=== PATIENT | female | born 1930 | race Caucasian/White ===

== ENCOUNTER 2017-07-08 08:37 | Inpatient (IN) | payer MEDICARE, BC, MEDICAID ==
[~2017-07-08] VITALS: Ht 167.6 cm; Wt 89.4 kg
[~2017-07-08 08:37] MED LIST: BACTRIM SINGLE S1 EA ORAL; BENAZEPRIL HCL10 MG ORAL; BENEFIBER1 EACH ORAL; BISACODYL10 M1 RC; CENTRUM SILVER1 EAC4 PO; CLONIDINE0.1 MG ORAL; DETROL LA4 MG ORAL; DONEPEZIL HCL10 M2 ORAL; DONEPEZIL HCL10 MG ORAL; LIPITOR80 MG ORAL; LOPERAMIDE2 MG PO; METFORMIN HCL500 M1 ORAL; MILK OF MA400 MG/51 ORAL; MULTIVITAMINS1 EAC8 ORAL; NAPROXEN SODIU220 M2 PO; PLAVIX75 MG ORAL; ROBAFEN100 MG/5 M PO; SM ENEMA READY RC; TOLTERODINE TART4 MG PO; TYLENOL650 MG/20. ORAL
[2017-07-08 08:41] VITALS: BP 139/55
--- NOTE | 2017-07-08 09:04 | Emergency Room Report ---
History of Present Illness General Chief Complaint: Fever Source: Patient, Medical Record, EMS Present Illness HPI 86-year-old female, coming from care home, history of diabetes, hypertension , dementia, presenting with fever for one day. Per EMS she has had cough and congestion. She took a Tylenol is given by nursing staff earlier this morning. Currently patient with dementia, answering only simple questions, very poor historian. She is currently denying any shortness of breath, chest pain, abdominal pain, nausea vomiting Allergies: Coded Allergies: PENICILLINS (Verified Allergy, Severe, Rash, 01/31/16) Swelling Redness Rash Patient History Past Medical History: see triage record Past Surgical History: none Pertinent Family History: none Reviewed Nursing Documentation: PMH: Agreed, PSxH: Agreed Nursing Documentation-PMH Past Medical History: No History, Except For Hx COPD: No - Pneumonia Hx Diabetes: Yes Hx Cancer: No Hx Dialysis: No - UTI Hx Neurological Problems: No - Hearing Loss Hx Dementia: Yes Hx Alzheimer's Disease: Yes Review of Systems All Other Systems: negative except mentioned in HPI Physical Exam Vital Signs Date Time Temp Pulse Resp B/P (MAP) Pulse Ox O2 Delivery O2 Flow Rate FiO2 07/08/17 08:31 98.4 86 16 123/83 96 Room Air 98.4 Sp02 EP Interpretation: reviewed, normal General Appearance: alert, mild distress, other - dementia Head: normocephalic, atraumatic Eyes: bilateral eye normal inspection, bilateral eye PERRL, bilateral eye EOMI ENT: normal ENT inspection, normal pharynx, normal voice, moist mucus membranes Neck: normal inspection, full range of motion, supple Respiratory: normal inspection, lungs clear, normal breath sounds, no respiratory distress, no retraction, no wheezing, speaking full sentences, chest symmetrical Cardiovascular #1: normal inspection, regular rate, rhythm, normal capillary refill Cardiovascular #2: 2+ radial (R), 2+ radial (L) Gastrointestinal: normal inspection, non tender, soft, non-distended, no guarding Musculoskeletal: normal inspection, back normal, normal range of motion, non- tender Neurologic: other - aox2, moves ext spont Psychiatric: normal inspection, judgement/insight normal, memory normal Skin: normal inspection, normal color, no rash, warm/dry, well hydrated, normal turgor Medical Decision Making Diagnostic Impression: Primary Impression: Alzheimer's dementia Additional Impressions: Fever Influenza B UTI (urinary tract infection) ER Course 86-year-old female, cough congestion fever DDX: Fever : UTI, viral URI/influenza, PNA, bacteremia, will also consider intra- abdominal pathology such as colitis / diverticulitis / acalculous cholecystitis if no other course found but at this time abdomen soft, NT, ND. Plan: Obtain labs including cbc, bmp, blood culture, blood gas, lactate, ua, ucx CXR EKG ER course: Patient was given ceftriaxone for UTI. It was attempted to give patient Tamiflu , however she keeps spitting it out. Given gentle fluids Disposition: Patient will admitted to telemetry D/W Hospitalist Dr Gutierrez Please note that this Emergency Department Report was dictated using [employer] conveyor operator technology software, occasionally this can lead to erroneous entry secondary to interpretation by the dictation equipment. EKG Diagnostic Results EP Interpretation: Yes Rate: normal Rhythm: NSR ST Segments: No acute changes ASA given to patient: No Rhythm Strip EP Interpretation: Yes Rate: 90 Rhythm: NSR, no PVCs, no ectopy Chest X-ray CXR: Ordered: Yes 1 view Indication: Cough EP interpretation: Yes Interpretation: No consolidation, no effusion, no PTX, no acute cardiopulmonary disease Impression: No acute disease Electronically signed by Mercedes Portillo MD Laboratory Tests Test 07/08/17 09:00 07/08/17 09:08 White Blood Count 5.4 K/UL (4.8-10.8) Red Blood Count 4.78 M/UL (4.20-5.40) Hemoglobin 15.3 G/DL (12.0-16.0) Hematocrit 45.4 % (37.0-47.0) Mean Corpuscular Volume 95 FL (80-99) Mean Corpuscular Hemoglobin 31.9 PG (27.0-31.0) H Mean Corpuscular Hemoglobin Concent 33.6 G/DL (32.0-36.0) Red Cell Distribution Width 12.8 % (11.6-14.8) Platelet Count 178 K/UL (150-450) Mean Platelet Volume 6.3 FL (6.5-10.1) L Neutrophils (%) (Auto) 62.5 % (45.0-75.0) Lymphocytes (%) (Auto) 28.3 % (20.0-45.0) Monocytes (%) (Auto) 8.3 % (1.0-10.0) Eosinophils (%) (Auto) 0.0 % (0.0-3.0) Basophils (%) (Auto) 0.9 % (0.0-2.0) Sodium Level 142 MMOL/L (136-145) Potassium Level 4.2 MMOL/L (3.5-5.1) Chloride Level 107 MMOL/L (98-107) Carbon Dioxide Level 28 MMOL/L (21-32) Anion Gap 7 mmol/L (5-15) Blood Urea Nitrogen 19 mg/dL (7-18) H Creatinine 1.0 MG/DL (0.55-1.30) Estimate Glomerular Filtration Rate mL/min (>60) Glucose Level 175 MG/DL (74-106) H Lactic Acid Level 1.40 mmol/L (0.66-2.22) Calcium Level 8.7 MG/DL (8.5-10.1) Total Bilirubin 0.4 MG/DL (0.2-1.0) Aspartate Amino Transferase (AST) 51 U/L (15-37) H Alanine Aminotransferase (ALT) 31 U/L (12-78) Alkaline Phosphatase 86 U/L (46-116) Troponin I 0.012 ng/mL (0.000-0.056) Pro-B-Type Natriuretic Peptide 533 pg/mL (0-125) H Total Protein 7.2 G/DL (6.4-8.2) Albumin 2.8 G/DL (3.4-5.0) L Globulin 4.4 g/dL Albumin/Globulin Ratio 0.6 (1.0-2.7) L Urine Color Yellow Urine Appearance Very cloudy Urine pH 6 (4.5-8.0) Urine Specific [place] 1.020 (1.005-1.035) Urine Protein 3+ (NEGATIVE) H Urine Glucose (UA) Negative (NEGATIVE) Urine Ketones 1+ (NEGATIVE) H Urine Occult Blood 2+ (NEGATIVE) H Urine Nitrite Negative (NEGATIVE) Urine Bilirubin Negative (NEGATIVE) Urine Urobilinogen Normal MG/DL (0.0-1.0) Urine Leukocyte Esterase 3+ (NEGATIVE) H Urine RBC 5-10 /HPF (0 - 2) H Urine WBC Tntc /HPF (0 - 2) H Urine Squamous Epithelial Cells Few /LPF (NONE/OCC) Urine Bacteria Moderate /HPF (NONE) H Microbiology Date/Time Source Procedure Growth Status 07/08/17 09:25 Nasal Nares Influenza Types A,B Antigen (OLIVIA) - Final Complete Last Vital Signs Date Time Temp Pulse Resp B/P (MAP) Pulse Ox O2 Delivery O2 Flow Rate FiO2 07/08/17 08:31 98.4 86 16 123/83 96 Room Air 98.4 Disposition: ADMITTED INPATIENT Condition: Serious RetinMercedes rouse M.D. Jul 08, 2017 09:04
[2017-07-08 09:33] LABS: ANION GAP 7 mmol/L (5-15); BLOOD UREA NITROGEN 19 mg/dL (7-18); CALCIUM 8.7 MG/DL (8.5-10.1); CARBON DIOXIDE 28 MMOL/L (21-32); CHLORIDE 107 MMOL/L (98-107); POTASSIUM 4.2 MMOL/L (3.5-5.1); SODIUM 142 MMOL/L (136-145)
[2017-07-08 09:38] LABS: BASOPHILS % (AUTO) 0.9 % (0.0-2.0); HEMATOCRIT 45.4 % (37.0-47.0); HEMOGLOBIN 15.3 G/DL (12.0-16.0); LYMPHOCYTES % (AUTO) 28.3 % (20.0-45.0); MEAN CORPUSCULAR VOLUME 95 FL (80-99); MONOCYTES % (AUTO) 8.3 % (1.0-10.0); NEUTROPHILS % (AUTO) 62.5 % (45.0-75.0); PLATELET COUNT 178 K/UL (150-450); RED BLOOD COUNT 4.78 M/UL (4.20-5.40); RED CELL DISTRIBUTION WIDTH 12.8 % (11.6-14.8); WHITE BLOOD COUNT 5.4 K/UL (4.8-10.8)
[2017-07-08 09:40] LABS: APPEARANCE,URINE VERY CLOUDY; BILIRUBIN, URINE NEGATIVE (NEGATIVE); GLUCOSE, URINE (UA) NEGATIVE (NEGATIVE); KETONES,URINE 1+ (NEGATIVE); LEUKOCYTE ESTERASE ,URINE 3+ (NEGATIVE); NITRITE,URINE NEGATIVE (NEGATIVE); PH,URINE 6 (4.5-8.0); PROTEIN,URINE 3+ (NEGATIVE); UROBILINOGEN,URINE NORMAL MG/DL (0.0-1.0)
[2017-07-08 09:45] LABS: ALANINE AMINOTRANSFERASE 31 U/L (12-78); ALBUMIN 2.8 G/DL (3.4-5.0); ALBUMIN/GLOBULIN RATIO 0.6 (1.0-2.7); ALKALINE PHOSPHATASE 86 U/L (46-116); ASPARTATE AMINO TRANSFERASE 51 U/L (15-37); BILIRUBIN,TOTAL 0.4 MG/DL (0.2-1.0)
[2017-07-08 09:46] LABS: COLOR,URINE YELLOW
[2017-07-08] MEDS ORDERED: PROTONIX20 MG ORAL (10:13)
[2017-07-08] MEDS ORDERED: TYLENOL EXTRA500 MG ORAL (10:13)
[2017-07-08] MEDS ORDERED: DULCOLAX STOOL100 M1 PO (10:13)
[2017-07-08] MEDS ORDERED: MOM30 ML ORAL (10:13)
[2017-07-08] MEDS ORDERED: VITAMIN C500 M3 ORAL (10:13)
[2017-07-08] MEDS ORDERED: FLEET ENEMA133 M1 RC (10:13)
[2017-07-08] MEDS ORDERED: A & D OINT1 APPLI1 (10:13)
[2017-07-08] MEDS ORDERED: CENTRUM ADULTS1 EACH PO (10:13)
[2017-07-08] MEDS ORDERED: cefTRIAXone 1 GM in NS 55 ML IVPB ONE (10:15)
[2017-07-08] MEDS ORDERED: Oseltamivir 75mg cap ORAL ONE (10:15)
[2017-07-08 10:36] VITALS: BP 121/72
--- NOTE | 2017-07-08 11:52 | Diagnostic Imaging Report ---
Indication: Dyspnea Comparison: 03/15/2016 A single view chest radiograph was obtained. Findings: No definite infiltrate or pulmonary vascular congestion identified. The heart is enlarged. The aorta is mildly enlarged consistent with atherosclerotic vascular disease. The bones are osteopenic. Impression: No acute disease
[2017-07-08 12:00] VITALS: BP 150/66
--- NOTE | 2017-07-08 13:26 | Infectious Diseases Prog Note ---
Assessment/Plan Problems: (1) Influenza B Assessment & Plan: will start tamiflu for 5 days, will keep in droplet isolation (2) UTI (urinary tract infection) Assessment & Plan: will send urine culture and start cefepime empirically (3) Fever Assessment & Plan: due to the above, rule out sepsis , will send blood culture , continue Tylenol (4) Diabetes type 2, uncontrolled Assessment & Plan: recommend tight glycemic control to keep blood glucose between 100-140 Subjective Allergies: Coded Allergies: PENICILLINS (Verified Allergy, Severe, Rash, 01/31/16) Swelling Redness Rash Objective Vital Signs Last 24 Hour Vital Signs Date Time Temp Pulse Resp B/P (MAP) Pulse Ox O2 Delivery O2 Flow Rate FiO2 07/08/17 12:00 98.0 80 20 150/68 95 Room Air 97.8 07/08/17 10:36 85 17 121/72 97 Room Air 07/08/17 08:41 97.8 91 23 139/55 95 Room Air 97.8 07/08/17 08:31 98.4 86 16 123/83 96 Room Air 98.4 Height (Feet): 5 Height (Inches): 6.00 Weight (Pounds): 197 Microbiology Date/Time Source Procedure Growth Status 07/08/17 09:25 Nasal Nares Influenza Types A,B Antigen (OLIVIA) - Final Complete Laboratory Tests Test 07/08/17 09:00 07/08/17 09:08 White Blood Count 5.4 K/UL (4.8-10.8) Red Blood Count 4.78 M/UL (4.20-5.40) Hemoglobin 15.3 G/DL (12.0-16.0) Hematocrit 45.4 % (37.0-47.0) Mean Corpuscular Volume 95 FL (80-99) Mean Corpuscular Hemoglobin 31.9 PG (27.0-31.0) H Mean Corpuscular Hemoglobin Concent 33.6 G/DL (32.0-36.0) Red Cell Distribution Width 12.8 % (11.6-14.8) Platelet Count 178 K/UL (150-450) Mean Platelet Volume 6.3 FL (6.5-10.1) L Neutrophils (%) (Auto) 62.5 % (45.0-75.0) Lymphocytes (%) (Auto) 28.3 % (20.0-45.0) Monocytes (%) (Auto) 8.3 % (1.0-10.0) Eosinophils (%) (Auto) 0.0 % (0.0-3.0) Basophils (%) (Auto) 0.9 % (0.0-2.0) Sodium Level 142 MMOL/L (136-145) Potassium Level 4.2 MMOL/L (3.5-5.1) Chloride Level 107 MMOL/L (98-107) Carbon Dioxide Level 28 MMOL/L (21-32) Anion Gap 7 mmol/L (5-15) Blood Urea Nitrogen 19 mg/dL (7-18) H Creatinine 1.0 MG/DL (0.55-1.30) Estimat Glomerular Filtration Rate mL/min (>60) Glucose Level 175 MG/DL (74-106) H Lactic Acid Level 1.40 mmol/L (0.66-2.22) Calcium Level 8.7 MG/DL (8.5-10.1) Total Bilirubin 0.4 MG/DL (0.2-1.0) Aspartate Amino Transf (AST/SGOT) 51 U/L (15-37) H Alanine Aminotransferase (ALT/SGPT) 31 U/L (12-78) Alkaline Phosphatase 86 U/L (46-116) Troponin I 0.012 ng/mL (0.000-0.056) Pro-B-Type Natriuretic Peptide 533 pg/mL (0-125) H Total Protein 7.2 G/DL (6.4-8.2) Albumin 2.8 G/DL (3.4-5.0) L Globulin 4.4 g/dL Albumin/Globulin Ratio 0.6 (1.0-2.7) L Urine Color Yellow Urine Appearance Very cloudy Urine pH 6 (4.5-8.0) Urine Specific [place] 1.020 (1.005-1.035) Urine Protein 3+ (NEGATIVE) H Urine Glucose (UA) Negative (NEGATIVE) Urine Ketones 1+ (NEGATIVE) H Urine Occult Blood 2+ (NEGATIVE) H Urine Nitrite Negative (NEGATIVE) Urine Bilirubin Negative (NEGATIVE) Urine Urobilinogen Normal MG/DL (0.0-1.0) Urine Leukocyte Esterase 3+ (NEGATIVE) H Urine RBC 5-10 /HPF (0 - 2) H Urine WBC Tntc /HPF (0 - 2) H Urine Squamous Epithelial Cells Few /LPF (NONE/OCC) Urine Bacteria Moderate /HPF (NONE) H Current Medications Medications (Trade) Dose Ordered Sig/Олег Route PRN Reason Start Time Stop Time Status Last Admin Dose Admin Sodium Chloride 1,000 ml @ 125 mls/hr Q8H IV 07/08/17 10:15 08/07/17 10:14 07/08/17 10:22 Alicja Webster M.D. Jul 08, 2017 13:26
--- NOTE | 2017-07-08 14:53 | History & Physical ---
History and Physical History & Physicial Fever , cough H Influenza B Encephalopathy UTI DM HTN OBS PCN ALL # [id number] BARRY SMITH Jul 08, 2017 14:53
[2017-07-08] MEDS ORDERED: Acetaminophen 650mg/20.3ml ORAL PRN (15:00)
[2017-07-08] MEDS: D5 1/2NS 1,000 ML IV SCH (15:32)
[2017-07-08 16:15] VITALS: BP 154/72
--- NOTE | 2017-07-08 17:42 | Consultation ---
History of Present Illness General Date patient seen: Jul 08, 2017 Chief Complaint: Fever Reason for Consultation: dyspnea/ aspiration Present Illness HPI 86-year-old female with pmhx of diabetes, hypertension, dementia, very poor historian, from group home,presenting with fever for one day. Per EMS she has had cough and congestion. She is currently denying any shortness of breath, chest pain, abdominal pain, nausea vomiting. she looks comfortable but has episodes of coughing. Allergies: Coded Allergies: PENICILLINS (Verified Allergy, Severe, Rash, 01/31/16) Swelling Redness Rash Medication History Scheduled Acetaminophen* (Tylenol Extra Strength*), 325 MG ORAL Q4HR, (Reported) Ascorbic Acid (Vitamin C), 500 MG ORAL DAILY, (Reported) Atorvastatin (Lipitor), 80 MG ORAL BEDTIME Benazepril Hcl* (Benazepril Hcl*), 10 MG ORAL DAILY, (Reported) Benazepril Hcl* (Benazepril Hcl*), 10 MG ORAL Q12HR Clopidogrel Bisulfate* (Plavix*), 75 MG ORAL DAILY Donepezil Hcl* (Donepezil Hcl*), 10 MG ORAL HS, (Reported) Magnesium Hydroxide (Milk of Magnesia), 30 ML ORAL DAILY, (Reported) Magnesium Hydroxide* (Milk Of Magnesia*), 30 ML ORAL DAILY, (Reported) Metformin Hcl* (Metformin Hcl*), 500 MG ORAL TWICE A DAY, (Reported) Multivitamin With Minerals (Multivitamins With Minerals*), 1 TAB ORAL DAILY, ( Reported) Pantoprazole Sodium (Protonix), 20 MG ORAL DAILY, (Reported) Tolterodine Tartrate (Detrol La), 4 MG ORAL DAILY, (Reported) Trimethoprim/Sulfamethoxazole (Bactrim 400-80 mg Tablet), 1 EA ORAL Q12HR Scheduled PRN Acetaminophen (Acetaminophen), 650 MG ORAL Q6H PRN for Prn Headache/Temp > 101, (Reported) Clonidine HCl (Clonidine HCl), 0.1 MG ORAL Q6H PRN Miscellaneous Medications Bisacodyl (Bisacodyl), 10 MG RC, (Reported) Docusate Sodium (Dulcolax Stool Softener), 10 MG PO, (Reported) Guaifenesin (Robafen), 100 MG PO, (Reported) Guar Gum (Benefiber*), 1 PACKET ORAL, (Reported) Loperamide Hcl (Loperamide), 2 MG PO, (Reported) Mu-Vits-Min Th/Lycopene/Lutein (Centrum Silver Tablet), 1 EACH PO, (Reported) Multivitamin/Iron/Folic Acid (Centrum Adults Tablet), 1 EACH PO, (Reported) Na Phos,M-B/Na Phos,Di-Ba (Sm Enema Ready To Use), 270 ML RC, (Reported) Na Phos,M-B/Na Phos,Di-Ba (Fleet Enema), 118 ML RC, (Reported) Naproxen Sodium (Naproxen Sodium), 220 MG PO, (Reported) Vitamin A & D (Vitamin A & D Ointment), (Reported) Patient History Healthcare decision maker HERNANDO CORDOVA Resuscitation status Do Not Intubate Advanced Directive on File No Past Medical/Surgical History Past Medical/Surgical History: (1) HTN (hypertension) (2) Diabetes type 2, uncontrolled (3) Alzheimer's dementia (4) Cerebral vascular accident Review of Systems All Other Systems: negative except mentioned in HPI Physical Exam General Appearance: WD/WN Lines, tubes and drains: peripheral HEENT: normocephalic, atraumatic Neck: non-tender, normal alignment Respiratory/Chest: chest wall non-tender, lungs clear, normal breath sounds Cardiovascular/Chest: normal peripheral pulses, normal rate Abdomen: normal bowel sounds, non tender Genitourinary/Rectal: normal genital exam, normal rectal exam Extremities: normal range of motion Skin Exam: normal pigmentation Last 24 Hour Vital Signs Date Time Temp Pulse Resp B/P (MAP) Pulse Ox O2 Delivery O2 Flow Rate FiO2 07/08/17 16:15 98.2 81 18 154/72 Room Air 98.2 07/08/17 12:00 98.0 80 20 150/68 95 Room Air 97.8 07/08/17 12:00 97.3 80 19 150/66 96 97.3 07/08/17 10:36 85 17 121/72 97 Room Air 07/08/17 08:41 97.8 91 23 139/55 95 Room Air 97.8 07/08/17 08:31 98.4 86 16 123/83 96 Room Air 98.4 Laboratory Tests Test 07/08/17 09:00 07/08/17 09:08 White Blood Count 5.4 K/UL (4.8-10.8) Red Blood Count 4.78 M/UL (4.20-5.40) Hemoglobin 15.3 G/DL (12.0-16.0) Hematocrit 45.4 % (37.0-47.0) Mean Corpuscular Volume 95 FL (80-99) Mean Corpuscular Hemoglobin 31.9 PG (27.0-31.0) H Mean Corpuscular Hemoglobin Concent 33.6 G/DL (32.0-36.0) Red Cell Distribution Width 12.8 % (11.6-14.8) Platelet Count 178 K/UL (150-450) Mean Platelet Volume 6.3 FL (6.5-10.1) L Neutrophils (%) (Auto) 62.5 % (45.0-75.0) Lymphocytes (%) (Auto) 28.3 % (20.0-45.0) Monocytes (%) (Auto) 8.3 % (1.0-10.0) Eosinophils (%) (Auto) 0.0 % (0.0-3.0) Basophils (%) (Auto) 0.9 % (0.0-2.0) Sodium Level 142 MMOL/L (136-145) Potassium Level 4.2 MMOL/L (3.5-5.1) Chloride Level 107 MMOL/L (98-107) Carbon Dioxide Level 28 MMOL/L (21-32) Anion Gap 7 mmol/L (5-15) Blood Urea Nitrogen 19 mg/dL (7-18) H Creatinine 1.0 MG/DL (0.55-1.30) Estimat Glomerular Filtration Rate mL/min (>60) Glucose Level 175 MG/DL (74-106) H Lactic Acid Level 1.40 mmol/L (0.66-2.22) Calcium Level 8.7 MG/DL (8.5-10.1) Total Bilirubin 0.4 MG/DL (0.2-1.0) Aspartate Amino Transf (AST/SGOT) 51 U/L (15-37) H Alanine Aminotransferase (ALT/SGPT) 31 U/L (12-78) Alkaline Phosphatase 86 U/L (46-116) Troponin I 0.012 ng/mL (0.000-0.056) C-Reactive Protein, Quantitative 3.5 mg/dL (0.00-0.90) H Pro-B-Type Natriuretic Peptide 533 pg/mL (0-125) H Total Protein 7.2 G/DL (6.4-8.2) Albumin 2.8 G/DL (3.4-5.0) L Globulin 4.4 g/dL Albumin/Globulin Ratio 0.6 (1.0-2.7) L Urine Color Yellow Urine Appearance Very cloudy Urine pH 6 (4.5-8.0) Urine Specific [place] 1.020 (1.005-1.035) Urine Protein 3+ (NEGATIVE) H Urine Glucose (UA) Negative (NEGATIVE) Urine Ketones 1+ (NEGATIVE) H Urine Occult Blood 2+ (NEGATIVE) H Urine Nitrite Negative (NEGATIVE) Urine Bilirubin Negative (NEGATIVE) Urine Urobilinogen Normal MG/DL (0.0-1.0) Urine Leukocyte Esterase 3+ (NEGATIVE) H Urine RBC 5-10 /HPF (0 - 2) H Urine WBC Tntc /HPF (0 - 2) H Urine Squamous Epithelial Cells Few /LPF (NONE/OCC) Urine Bacteria Moderate /HPF (NONE) H Microbiology Date/Time Source Procedure Growth Status 07/08/17 09:25 Nasal Nares Influenza Types A,B Antigen (OLIVIA) - Final Complete Height (Feet): 5 Height (Inches): 6.00 Weight (Pounds): 197 Medications Current Medications Medications (Trade) Dose Ordered Sig/Олег Route PRN Reason Start Time Stop Time Status Last Admin Dose Admin Acetaminophen (Tylenol) 650 mg Q6H PRN ORAL Prn Headache/Temp > 101 07/08/17 15:00 08/07/17 14:59 Benazepril HCl (Lotensin) 10 mg DAILY ORAL 07/09/17 09:00 08/08/17 08:59 Cefepime HCl 1 gm/ Sodium Chloride 55 ml @ 110 mls/hr EVERY 12 HOURS IVPB 07/08/17 21:00 07/15/17 23:59 Clonidine HCl (Catapres Tab) 0.1 mg Q6H PRN ORAL BP over 160 syst 07/08/17 15:00 08/07/17 14:59 Clopidogrel Bisulfate (Plavix) 75 mg DAILY ORAL 07/09/17 09:00 3/29/18 08:59 Clotrimazole (Lotrimin) 1 applic THREE TIMES A DAY TOPIC 07/08/17 18:00 08/07/17 17:59 Dextrose/Sodium Chloride 1,000 ml @ 75 mls/hr [id number] IV 07/08/17 15:00 08/07/17 14:59 07/08/17 15:32 Docusate Sodium (Colace) 100 mg TID ORAL 07/08/17 18:00 08/07/17 17:59 Heparin Sodium (Porcine) (Heparin 5000 units/ml) 5,000 units EVERY 12 HOURS SUBQ 07/08/17 21:00 08/07/17 20:59 Oseltamivir Phosphate (Tamiflu) 75 mg Q12HR ORAL 07/08/17 21:00 07/13/17 20:59 Pantoprazole (Protonix) 40 mg BID ORAL 07/08/17 18:00 08/07/17 17:59 Assessment/Plan Problem List: (1) Dyspnea ICD Codes: R06.00 - Dyspnea, unspecified SNOMED: 486936965 (2) Pneumonia ICD Codes: J18.9 - Pneumonia, unspecified organism SNOMED: 541920545 (3) At high risk for aspiration ICD Codes: Z91.89 - Other specified personal risk factors, not elsewhere classified SNOMED: 629141477 (4) UTI (urinary tract infection) ICD Codes: N39.0 - Urinary tract infection, site not specified SNOMED: 43437269 (5) Cerebral vascular accident ICD Codes: I63.9 - Cerebral infarction, unspecified SNOMED: 471302171 (6) HTN (hypertension) ICD Codes: I10 - Essential (primary) hypertension SNOMED: 77771273 Assessment/Plan respiratory treatment iv abx check sputum check other cultures dvt prophylaxis titrate fio2 to sat of 92 antitussives STANFORD MOREJON Jul 08, 2017 17:42
[2017-07-08] MEDS ORDERED: Promethazine/Codeine 5ml UD ORAL PRN (17:45)
[2017-07-08] MEDS: Docusate 100mg cap ORAL SCH (18:58)
--- NOTE | 2017-07-08 19:30 | Consultation ---
DATE OF CONSULTATION: 07/08/2017 INFECTIOUS DISEASES CONSULTATION CONSULTING PHYSICIAN: Alicja Webster M.D. REQUESTING PHYSICIAN: Delon Sanchez M.D. REASON FOR CONSULTATION: Influenza B infection, urinary tract infection, recommendation for antibiotics treatment and further management. HISTORY OF PRESENT ILLNESS: The patient is an 86-year-old female with past medical history of COPD, diabetes, urinary tract infection, dementia with Alzheimer disease, who was brought in from [facility] for fever. As per report, the patient had cough and congestion. No evidence of shortness of breath. She took Tylenol which was provided by the nursing staff at the skilled nursing and was brought in to [facility] for further evaluation and management. The patient did not have any chest pain, abdominal pain, nausea, or vomiting. She had a chest x-ray in the emergency room which did not show evidence of pneumonia or new infiltration. Her temperature was 98.4, saturating 96% on room air. The patient had urinalysis which showed evidence of infection. She also had influenza screening which returns back positive for influenza B, so infectious disease consultation was requested for further evaluation and management. As of note, the patient is demented and unable to provide any history at this point. History was mainly obtained from the medical record and the [id number] who was at the bedside. REVIEW OF SYSTEMS: Unable to obtain at this point. The patient is poor historian. PAST MEDICAL HISTORY: Significant for diabetes mellitus, hearing loss, dementia, and Alzheimer disease. PAST SURGICAL HISTORY: Not on record. FAMILY HISTORY: Unable to obtain. SOCIAL HISTORY: She is a skilled nursing resident at [facility]. No recent drugs, tobacco, or alcohol. ALLERGIES: She is allergic to penicillin with rash and redness. MEDICATIONS: The patient received ceftriaxone and Tamiflu in the emergency room. For the rest of her medications, please refer to MAR. PHYSICAL EXAMINATION: VITAL SIGNS: Temperature 98, pulse 80, respirations 20, blood pressure 150/68, saturation 95% on room air. GENERAL: An elderly female, lying in bed, unresponsive, not in acute distress. [id number] at the bedside. HEENT: Normocephalic, atraumatic. Pupils constricted. Unable to assess oral mucosa. NECK: Supple. No lymphadenopathy. CARDIOVASCULAR: Regular rate and rhythm. No murmur or gallop. LUNGS: Clear bilaterally. Diminished breathing sounds at the bases. ABDOMEN: Soft, nontender, nondistended. Positive bowel sounds. No hepatosplenomegaly or ascites. EXTREMITIES: No edema. No cyanosis. Bruises mainly on the upper extremities. LABORATORY DATA: White count of 5.4, hemoglobin of 15.3, and platelet count of 178,000. BUN of 19, creatinine of 1. AST of 51, ALT of 31, albumin 2.8. Urinalysis showed +3 leukocyte esterase, wbc too numerous to count, and moderate amount of bacteria. Microbiology, influenza A and B screening was positive for influenza B only. IMAGING: Chest x-ray showed no acute disease. ASSESSMENT AND RECOMMENDATION: 1. Influenza B infection. We will start Tamiflu for five days. We will keep the patient in droplet isolation. 2. UTI. We will send urine culture and start cefepime empiric coverage pending culture results. 3. Fever due to the above, rule out sepsis. We will send blood culture. Continue Tylenol empiric treatment. 4. Diabetes type 2, uncontrolled. Recommend tight glycemic control to keep blood glucose between 100 to 140. Thank you for the consultation. Infectious Disease will continue to follow. Alicja Webster M.D. DR: Aviva JOB#: [id number] CC:
[2017-07-08 20:00] VITALS: BP 160/91
--- NOTE | 2017-07-08 20:00 | History and Physical Report ---
DATE OF ADMISSION: 07/08/2017 HISTORY OF PRESENT ILLNESS: The patient is an 86-year-old female, under my care at [facility]. The patient came in with fever, cough, congestion, and periodic hypoxia to emergency room, subsequently was found to have H. influenza B, UTI, and somewhat increased blood sugar, is being admitted for further management. PAST MEDICAL HISTORY: Significant for history of diabetes mellitus, hypertension, dementia, urinary incontinence, previous urinary tract infection, pneumonia. The patient has decreased hearing and is aspiration prone. ALLERGIES: Penicillin PHYSICAL EXAMINATION: GENERAL: At this time, friend or DPOA at bedside. The patient is lethargic, open eyes, not much verbal. VITAL SIGNS: Blood pressure 150/68, pulse rate 80, afebrile at this time, respiratory rate between 16 to 23 variable. HEENT: Head is normocephalic. Face is a slightly pale. NECK: Rigid to all directions. LUNGS: Poor inspiratory effort. Decreased breath sounds over the bases. HEART: Mainly irregular, slightly tachycardic. ABDOMEN: Obese. No CVA tenderness. EXTREMITIES: Lower extremities, no edema. LABORATORY RESULTS: Electrolytes normal. Glucose 175. Albumin 2.8. Hemoglobin 15.3, white blood cells is 5.4. Urine, 10 RBCs, too numerous to count WBCs, 3+ leukocyte esterase. IMPRESSION: The patient has fever, has evidence of urinary tract infection, positive for H. influenza B, also has past history of diabetes, hypertension, organic brain syndrome, and penicillin allergies. PLAN: At this point due to mental status, we will keep the patient NPO at this time. The patient started on Tamiflu and cefepime. We will continue on Lotensin for blood pressure, We will put a Ambrose and hydrate the patient and start Protonix. According to how the patient's condition evolves, we will make the proper changes in our future management. Delon Sanchez M.D. DR: Vandana JOB#: [id number] CC:
[2017-07-08] MEDS ORDERED: Cefepime HCl 1 GM in D5W 55 ML IVPB SCH (21:00)
[2017-07-08] MEDS: Cefepime HCl 1 GM in NS 55 ML IVPB SCH (22:34)
[2017-07-08] MEDS: Heparin 5000 units/ml inj SUBQ SCH (22:37)
[2017-07-09] VITALS: BP 146/71
[2017-07-09] MEDS: Oseltamivir 75mg cap ORAL SCH ×3 (00:11→20:36)
[2017-07-09] MEDS: D5 1/2NS 1,000 ML IV SCH (04:20)
[2017-07-09 06:54] LABS: BASOPHILS % (AUTO) 1.1 % (0.0-2.0); EOSINOPHILS % (AUTO) 0.1 % (0.0-3.0); HEMATOCRIT 39.6 % (37.0-47.0); HEMOGLOBIN 13.4 G/DL (12.0-16.0); LYMPHOCYTES % (AUTO) 41.8 % (20.0-45.0); MEAN CORPUSCULAR VOLUME 95 FL (80-99); MONOCYTES % (AUTO) 10.3 % (1.0-10.0); NEUTROPHILS % (AUTO) 46.7 % (45.0-75.0); PLATELET COUNT 141 K/UL (150-450); RED BLOOD COUNT 4.17 M/UL (4.20-5.40); RED CELL DISTRIBUTION WIDTH 12.2 % (11.6-14.8)
[2017-07-09 07:36] LABS: ALANINE AMINOTRANSFERASE 23 U/L (12-78); ALBUMIN 2.2 G/DL (3.4-5.0); ALBUMIN/GLOBULIN RATIO 0.6 (1.0-2.7); ALKALINE PHOSPHATASE 73 U/L (46-116); ANION GAP 6 mmol/L (5-15); ASPARTATE AMINO TRANSFERASE 28 U/L (15-37); BILIRUBIN,TOTAL 0.3 MG/DL (0.2-1.0); BLOOD UREA NITROGEN 13 mg/dL (7-18); CARBON DIOXIDE 30 MMOL/L (21-32); CHLORIDE 108 MMOL/L (98-107); CHOLESTEROL 85 MG/DL (< 200); CREATININE 0.8 MG/DL (0.55-1.30); HDL CHOLESTEROL 31 MG/DL (40-60); PHOSPHORUS 2.5 MG/DL (2.5-4.9); POTASSIUM 3.2 MMOL/L (3.5-5.1); SODIUM 143 MMOL/L (136-145); TRIGLYCERIDES 139 MG/DL (30-150)
[2017-07-09 08:00] VITALS: BP 152/65
[2017-07-09] MEDS: Heparin 5000 units/ml inj SUBQ SCH ×2 (09:00→20:38)
[2017-07-09] MEDS ORDERED: Benazepril 10mg tab ORAL SCH (09:00)
[2017-07-09] MEDS: Cefepime HCl 1 GM in NS 55 ML IVPB SCH ×2 (09:13→20:36)
[2017-07-09] MEDS: Docusate 100mg cap ORAL SCH ×3 (09:14→18:15)
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
--- NOTE | 2017-07-09 14:48 | General Progress Note ---
Assessment/Plan Problem List: (1) Influenza B ICD Codes: J10.1 - Influenza due to other identified influenza virus with other respiratory manifestations SNOMED: 42250043 (2) UTI (urinary tract infection) ICD Codes: N39.0 - Urinary tract infection, site not specified SNOMED: 78236920 (3) Fever ICD Codes: R50.9 - Fever, unspecified SNOMED: 380100580 (4) Diabetes type 2, uncontrolled ICD Codes: E11.65 - Type 2 diabetes mellitus with hyperglycemia SNOMED: 595015762 (5) Alzheimer's dementia ICD Codes: G30.9 - Alzheimer's disease, unspecified SNOMED: 35324519 (6) HTN (hypertension) ICD Codes: I10 - Essential (primary) hypertension SNOMED: 39384850 (7) Hypovolemia ICD Codes: E86.1 - Hypovolemia SNOMED: 29896843 (8) Acute encephalopathy ICD Codes: G93.40 - Encephalopathy, unspecified SNOMED: 53613019, 059219890 Status: stable Status Narrative Fever , cough H Influenza B Encephalopathy UTI DM HTN OBS PCN ALL Assessment/Plan cefepime- DC IV Breathing treatment increase lotensin start PO Subjective ROS Limited/Unobtainable: No Constitutional: Reports: other - more responsive Allergies: Coded Allergies: PENICILLINS (Verified Allergy, Severe, Rash, 01/31/16) Swelling Redness Rash Objective Last 24 Hour Vital Signs Date Time Temp Pulse Resp B/P (MAP) Pulse Ox O2 Delivery O2 Flow Rate FiO2 07/09/17 09:14 146/71 07/09/17 08:00 97.6 80 18 152/65 94 97.6 07/09/17 00:00 97.7 90 18 146/71 92 97.7 07/08/17 20:00 97.2 93 20 160/91 93 97.2 07/08/17 16:15 98.2 81 18 154/72 Room Air 98.2 Intake and Output 07/08/17 07/09/17 19:00 07:00 Intake Total 255 ml 880 ml Output Total 370 ml 250 ml Balance -115 ml 630 ml Intake IV Total 255 ml 880 ml Output Urine Total 370 ml 250 ml # Voids 1 Laboratory Tests 07/09/17 05:20: White Blood Count 4.0L, Red Blood Count 4.17L, Hemoglobin 13.4, Hematocrit 39.6 , Mean Corpuscular Volume 95, Mean Corpuscular Hemoglobin 32.2H, Mean Corpuscular Hemoglobin Concent 34.0, Red Cell Distribution Width 12.2, Platelet Count 141L, Mean Platelet Volume 5.9L, Neutrophils (%) (Auto) 46.7, Lymphocytes (%) (Auto) 41.8, Monocytes (%) (Auto) 10.3H, Eosinophils (%) (Auto) 0.1, Basophils (%) (Auto) 1.1, Sodium Level 143, Potassium Level 3.2L, Chloride Level 108H, Carbon Dioxide Level 30, Anion Gap 6, Blood Urea Nitrogen 13, Creatinine 0.8, Estimat Glomerular Filtration Rate , Glucose Level 173H, Hemoglobin A1c 8.6H, Uric Acid 3.9, Calcium Level 8.0L, Phosphorus Level 2.5, Magnesium Level 2.0, Total Bilirubin 0.3, Aspartate Amino Transf (AST/SGOT) 28, Alanine Aminotransferase (ALT/SGPT) 23, Alkaline Phosphatase 73, Troponin I 0.016, Pro-B-Type Natriuretic Peptide 351H, Total Protein 6.0L, Albumin 2.2L, Globulin 3.8, Albumin/Globulin Ratio 0.6L, Triglycerides Level 139, Cholesterol Level 85, LDL Cholesterol 42, HDL Cholesterol 31L, Cholesterol/HDL Ratio 2.7L, Vitamin B12 Level 413, Folate 49.2, Thyroid Stimulating Hormone (TSH) 2.099 Height (Feet): 5 Height (Inches): 6.00 Weight (Pounds): 197 General Appearance: no apparent distress Cardiovascular: normal rate, regular rhythm Respiratory/Chest: decreased breath sounds Abdomen: soft BARRY SMITH Jul 09, 2017 14:48
--- NOTE | 2017-07-09 15:18 | Infectious Diseases Prog Note ---
Assessment/Plan Problems: (1) Influenza B Assessment & Plan: continue tamiflu for 5 days, will keep in droplet isolation (2) UTI (urinary tract infection) Assessment & Plan: await urine culture and continue cefepime empirically (3) Fever Assessment & Plan: due to the above, rule out sepsis , continue antibiotics, pending blood culture , continue Tylenol (4) Diabetes type 2, uncontrolled Assessment & Plan: recommend tight glycemic control to keep blood glucose between 100-140 Subjective Constitutional: Reports: no symptoms HEENT: Reports: no symptoms Respiratory: Reports: no symptoms Breasts: Reports: no symptoms Cardiovascular: Reports: no symptoms Gastrointestinal/Abdominal: Reports: no symptoms Genitourinary: Reports: no symptoms Neurologic: Reports: weakness Psychiatric: Reports: no symptoms Skin: Reports: no symptoms Endocrine: Reports: no symptoms Hematologic: Reports: no symptoms Musculoskeletal: Reports: no symptoms Allergies: Coded Allergies: PENICILLINS (Verified Allergy, Severe, Rash, 01/31/16) Swelling Redness Rash Objective Vital Signs Last 24 Hour Vital Signs Date Time Temp Pulse Resp B/P (MAP) Pulse Ox O2 Delivery O2 Flow Rate FiO2 07/09/17 09:14 146/71 07/09/17 08:00 97.6 80 18 152/65 94 97.6 07/09/17 00:00 97.7 90 18 146/71 92 97.7 07/08/17 20:00 97.2 93 20 160/91 93 97.2 07/08/17 16:15 98.2 81 18 154/72 Room Air 98.2 Height (Feet): 5 Height (Inches): 6.00 Weight (Pounds): 197 General Appearance: WD/WN, no acute distress HEENT: normocephalic, atraumatic, anicteric, mucous membranes moist, PERRL Respiratory/Chest: chest wall non-tender, no respiratory distress, no accessory muscle use, expiratory wheezing Cardiovascular: normal peripheral pulses, normal rate, regular rhythm, no gallop/murmur, no JVD Abdomen: normal bowel sounds, soft, non tender, no organomegaly, non distended , no mass, no scars Genitourinary: normal external genitalia Extremities: no cyanosis, no clubbing Skin: no rash, no lesions Neurologic/Psychiatric: alert, responsive Lymphatic: no neck adenopathy Microbiology Date/Time Source Procedure Growth Status 07/08/17 09:25 Nasal Nares Influenza Types A,B Antigen (OLIVIA) - Final Complete 07/08/17 09:08 Urine,Clean Catch Urine Culture - Preliminary Gram Negative Bacillus 1 Resulted Laboratory Tests Test 07/09/17 05:20 White Blood Count 4.0 K/UL (4.8-10.8) L Red Blood Count 4.17 M/UL (4.20-5.40) L Hemoglobin 13.4 G/DL (12.0-16.0) Hematocrit 39.6 % (37.0-47.0) Mean Corpuscular Volume 95 FL (80-99) Mean Corpuscular Hemoglobin 32.2 PG (27.0-31.0) H Mean Corpuscular Hemoglobin Concent 34.0 G/DL (32.0-36.0) Red Cell Distribution Width 12.2 % (11.6-14.8) Platelet Count 141 K/UL (150-450) L Mean Platelet Volume 5.9 FL (6.5-10.1) L Neutrophils (%) (Auto) 46.7 % (45.0-75.0) Lymphocytes (%) (Auto) 41.8 % (20.0-45.0) Monocytes (%) (Auto) 10.3 % (1.0-10.0) H Eosinophils (%) (Auto) 0.1 % (0.0-3.0) Basophils (%) (Auto) 1.1 % (0.0-2.0) Sodium Level 143 MMOL/L (136-145) Potassium Level 3.2 MMOL/L (3.5-5.1) L Chloride Level 108 MMOL/L (98-107) H Carbon Dioxide Level 30 MMOL/L (21-32) Anion Gap 6 mmol/L (5-15) Blood Urea Nitrogen 13 mg/dL (7-18) Creatinine 0.8 MG/DL (0.55-1.30) Estimat Glomerular Filtration Rate mL/min (>60) Glucose Level 173 MG/DL (74-106) H Hemoglobin A1c 8.6 % (4.3-6.0) H Uric Acid 3.9 MG/DL (2.6-7.2) Calcium Level 8.0 MG/DL (8.5-10.1) L Phosphorus Level 2.5 MG/DL (2.5-4.9) Magnesium Level 2.0 MG/DL (1.8-2.4) Total Bilirubin 0.3 MG/DL (0.2-1.0) Aspartate Amino Transf (AST/SGOT) 28 U/L (15-37) Alanine Aminotransferase (ALT/SGPT) 23 U/L (12-78) Alkaline Phosphatase 73 U/L (46-116) Troponin I 0.016 ng/mL (0.000-0.056) Pro-B-Type Natriuretic Peptide 351 pg/mL (0-125) H Total Protein 6.0 G/DL (6.4-8.2) L Albumin 2.2 G/DL (3.4-5.0) L Globulin 3.8 g/dL Albumin/Globulin Ratio 0.6 (1.0-2.7) L Triglycerides Level 139 MG/DL (30-150) Cholesterol Level 85 MG/DL (< 200) LDL Cholesterol 42 mg/dL (<100) HDL Cholesterol 31 MG/DL (40-60) L Cholesterol/HDL Ratio 2.7 (3.3-4.4) L Vitamin B12 Level 413 PG/ML (193-986) Folate 49.2 NG/ML (8.6-58.9) Thyroid Stimulating Hormone (TSH) 2.099 uiU/mL (0.358-3.740) Current Medications Medications (Trade) Dose Ordered Sig/Олег Route PRN Reason Start Time Stop Time Status Last Admin Dose Admin Acetaminophen (Tylenol) 650 mg Q6H PRN ORAL Prn Headache/Temp > 101 07/08/17 15:00 08/07/17 14:59 Benazepril HCl (Lotensin) 10 mg BID ORAL 07/09/17 18:00 08/08/17 08:59 Cefepime HCl 1 gm/ Sodium Chloride 55 ml @ 110 mls/hr EVERY 12 HOURS IVPB 07/08/17 21:00 07/15/17 23:59 07/09/17 09:13 Clonidine HCl (Catapres Tab) 0.1 mg Q6H PRN ORAL BP over 160 syst 07/08/17 15:00 08/07/17 14:59 Clopidogrel Bisulfate (Plavix) 75 mg DAILY ORAL 07/09/17 09:00 08/08/17 08:59 07/09/17 09:14 Clotrimazole (Lotrimin) 1 applic THREE TIMES A DAY TOPIC 07/08/17 18:00 08/07/17 17:59 07/09/17 13:25 Docusate Sodium (Colace) 100 mg TID ORAL 07/08/17 18:00 08/07/17 17:59 07/09/17 09:14 Heparin Sodium (Porcine) (Heparin 5000 units/ml) 5,000 units EVERY 12 HOURS SUBQ 07/08/17 21:00 08/07/17 20:59 07/08/17 22:37 Oseltamivir Phosphate (Tamiflu) 75 mg Q12HR ORAL 07/08/17 21:00 07/13/17 20:59 07/09/17 09:14 Pantoprazole (Protonix) 40 mg BID ORAL 07/08/17 18:00 08/07/17 17:59 07/09/17 09:14 Promethazine HCl/ Codeine (Phenergan with Codeine) 5 ml Q4H PRN ORAL For Cough 07/08/17 17:45 08/07/17 17:44 Alicja Webster M.D. Jul 09, 2017 15:18
[2017-07-09 15:46] VITALS: BP 168/73
--- NOTE | 2017-07-09 16:06 | Pulmonology Progress Note ---
Assessment/Plan Problems: (1) Dyspnea (2) Pneumonia (3) At high risk for aspiration (4) UTI (urinary tract infection) (5) Cerebral vascular accident (6) HTN (hypertension) Assessment/Plan imrpovng swallow study reviewed continue abx check cultures chest pt comfort feeding continue DNr dvt prophylaxis Subjective ROS Limited/Unobtainable: No Constitutional: Reports: no symptoms HEENT: Repors: no symptoms Allergies: Coded Allergies: PENICILLINS (Verified Allergy, Severe, Rash, 01/31/16) Swelling Redness Rash Objective Last 24 Hour Vital Signs Date Time Temp Pulse Resp B/P (MAP) Pulse Ox O2 Delivery O2 Flow Rate FiO2 07/09/17 15:46 97.4 74 21 168/73 97 Room Air 97.4 74 07/09/17 09:14 146/71 07/09/17 08:00 97.6 80 18 152/65 94 97.6 07/09/17 00:00 97.7 90 18 146/71 92 97.7 07/08/17 20:00 97.2 93 20 160/91 93 97.2 07/08/17 16:15 98.2 81 18 154/72 Room Air 98.2 Intake and Output 07/08/17 07/09/17 19:00 07:00 Intake Total 255 ml 880 ml Output Total 370 ml 250 ml Balance -115 ml 630 ml Intake IV Total 255 ml 880 ml Output Urine Total 370 ml 250 ml # Voids 1 General Appearance: no acute distress HEENT: normocephalic, atraumatic Respiratory/Chest: chest wall non-tender, crackles/rales Breasts: no masses Cardiovascular: normal peripheral pulses, regularly irregular Abdomen: normal bowel sounds, soft, non tender, no scars Genitourinary: normal external genitalia Extremities: no clubbing Skin: no rash, no lesions Microbiology Date/Time Source Procedure Growth Status 07/08/17 09:25 Nasal Nares Influenza Types A,B Antigen (OLIVIA) - Final Complete 07/08/17 09:08 Urine,Clean Catch Urine Culture - Preliminary Gram Negative Bacillus 1 Resulted Laboratory Tests 07/09/17 05:20: White Blood Count 4.0L, Red Blood Count 4.17L, Hemoglobin 13.4, Hematocrit 39.6 , Mean Corpuscular Volume 95, Mean Corpuscular Hemoglobin 32.2H, Mean Corpuscular Hemoglobin Concent 34.0, Red Cell Distribution Width 12.2, Platelet Count 141L, Mean Platelet Volume 5.9L, Neutrophils (%) (Auto) 46.7, Lymphocytes (%) (Auto) 41.8, Monocytes (%) (Auto) 10.3H, Eosinophils (%) (Auto) 0.1, Basophils (%) (Auto) 1.1, Sodium Level 143, Potassium Level 3.2L, Chloride Level 108H, Carbon Dioxide Level 30, Anion Gap 6, Blood Urea Nitrogen 13, Creatinine 0.8, Estimat Glomerular Filtration Rate , Glucose Level 173H, Hemoglobin A1c 8.6H, Uric Acid 3.9, Calcium Level 8.0L, Phosphorus Level 2.5, Magnesium Level 2.0, Total Bilirubin 0.3, Aspartate Amino Transf (AST/SGOT) 28, Alanine Aminotransferase (ALT/SGPT) 23, Alkaline Phosphatase 73, Troponin I 0.016, Pro-B-Type Natriuretic Peptide 351H, Total Protein 6.0L, Albumin 2.2L, Globulin 3.8, Albumin/Globulin Ratio 0.6L, Triglycerides Level 139, Cholesterol Level 85, LDL Cholesterol 42, HDL Cholesterol 31L, Cholesterol/HDL Ratio 2.7L, Vitamin B12 Level 413, Folate 49.2, Thyroid Stimulating Hormone (TSH) 2.099 Current Medications Medications (Trade) Dose Ordered Sig/Олег Route PRN Reason Start Time Stop Time Status Last Admin Dose Admin Acetaminophen (Tylenol) 650 mg Q6H PRN ORAL Prn Headache/Temp > 101 07/08/17 15:00 08/07/17 14:59 Benazepril HCl (Lotensin) 10 mg BID ORAL 07/09/17 18:00 08/08/17 08:59 Cefepime HCl 1 gm/ Sodium Chloride 55 ml @ 110 mls/hr EVERY 12 HOURS IVPB 07/08/17 21:00 07/15/17 23:59 07/09/17 09:13 Clonidine HCl (Catapres Tab) 0.1 mg Q6H PRN ORAL BP over 160 syst 07/08/17 15:00 08/07/17 14:59 Clopidogrel Bisulfate (Plavix) 75 mg DAILY ORAL 07/09/17 09:00 08/08/17 08:59 07/09/17 09:14 Clotrimazole (Lotrimin) 1 applic THREE TIMES A DAY TOPIC 07/08/17 18:00 08/07/17 17:59 07/09/17 13:25 Docusate Sodium (Colace) 100 mg TID ORAL 07/08/17 18:00 08/07/17 17:59 07/09/17 09:14 Heparin Sodium (Porcine) (Heparin 5000 units/ml) 5,000 units EVERY 12 HOURS SUBQ 07/08/17 21:00 08/07/17 20:59 07/08/17 22:37 Oseltamivir Phosphate (Tamiflu) 75 mg Q12HR ORAL 07/08/17 21:00 07/13/17 20:59 07/09/17 09:14 Pantoprazole (Protonix) 40 mg BID ORAL 07/08/17 18:00 08/07/17 17:59 07/09/17 09:14 Promethazine HCl/ Codeine (Phenergan with Codeine) 5 ml Q4H PRN ORAL For Cough 07/08/17 17:45 08/07/17 17:44 STANFORD MOREJON Jul 09, 2017 16:06
[2017-07-09] MEDS: Benazepril 10mg tab ORAL SCH (18:21)
[2017-07-09 20:00] VITALS: BP 161/69
[2017-07-10] VITALS: BP 154/91
[2017-07-10 04:00] VITALS: BP 123/77
[2017-07-10 08:06] VITALS: BP 92/57
[2017-07-10] MEDS: Benazepril 10mg tab ORAL SCH ×2 (09:00→17:16)
[2017-07-10] MEDS: Heparin 5000 units/ml inj SUBQ SCH ×2 (09:00→20:41)
[2017-07-10] MEDS: Cefepime HCl 1 GM in NS 55 ML IVPB SCH (09:51)
[2017-07-10] MEDS: Docusate 100mg cap ORAL SCH ×3 (09:51→17:16)
[2017-07-10] MEDS: Oseltamivir 75mg cap ORAL SCH ×2 (09:51→20:39)
--- NOTE | 2017-07-10 12:31 | General Progress Note ---
Assessment/Plan Problem List: (1) Influenza B ICD Codes: J10.1 - Influenza due to other identified influenza virus with other respiratory manifestations SNOMED: 82124460 (2) UTI (urinary tract infection) ICD Codes: N39.0 - Urinary tract infection, site not specified SNOMED: 45886443 (3) Fever ICD Codes: R50.9 - Fever, unspecified SNOMED: 615584554 (4) Diabetes type 2, uncontrolled ICD Codes: E11.65 - Type 2 diabetes mellitus with hyperglycemia SNOMED: 990964850 (5) Alzheimer's dementia ICD Codes: G30.9 - Alzheimer's disease, unspecified SNOMED: 48914229 (6) HTN (hypertension) ICD Codes: I10 - Essential (primary) hypertension SNOMED: 03084083 (7) Hypovolemia ICD Codes: E86.1 - Hypovolemia SNOMED: 39435999 (8) Acute encephalopathy ICD Codes: G93.40 - Encephalopathy, unspecified SNOMED: 58878543, 815557653 Status: stable Status Narrative no labs today Assessment/Plan cefepime- DC IV Breathing treatment increase lotensin start PO Subjective ROS Limited/Unobtainable: No Constitutional: Reports: malaise Allergies: Coded Allergies: PENICILLINS (Verified Allergy, Severe, Rash, 01/31/16) Swelling Redness Rash Objective Last 24 Hour Vital Signs Date Time Temp Pulse Resp B/P (MAP) Pulse Ox O2 Delivery O2 Flow Rate FiO2 07/10/17 09:00 92/57 07/10/17 08:06 97.4 84 22 92/57 98 Room Air 97.4 07/10/17 04:00 97.8 74 20 123/77 96 97.8 07/10/17 00:00 97.9 81 20 154/91 96 97.9 07/09/17 20:00 97.7 80 20 161/69 95 97.7 07/09/17 18:21 168/73 07/09/17 15:46 97.4 74 21 168/73 97 Room Air 97.4 74 Intake and Output 07/09/17 07/10/17 19:00 07:00 Intake Total 1075 ml 240 ml Output Total 600 ml Balance 1075 ml -360 ml Intake Oral 480 ml 240 ml IV Total 595 ml Output Urine Total 600 ml # Voids 3 # Bowel Movements 1 Height (Feet): 5 Height (Inches): 6.00 Weight (Pounds): 197 General Appearance: no apparent distress Cardiovascular: normal rate Respiratory/Chest: decreased breath sounds Abdomen: soft BARRY SMITH Jul 10, 2017 12:31
--- NOTE | 2017-07-10 14:44 | Infectious Diseases Prog Note ---
Assessment/Plan Problems: (1) Influenza B Assessment & Plan: continue tamiflu for 5 days, will keep in droplet isolation (2) UTI (urinary tract infection) Assessment & Plan: due to proteus mirabilis, will switch cefepime empirically , to ceftriaxon to finish her course for 7 days (3) Fever Assessment & Plan: due to the above, rule out sepsis , continue antibiotics, pending blood culture , continue Tylenol (4) Diabetes type 2, uncontrolled Assessment & Plan: recommend tight glycemic control to keep blood glucose between 100-140 Subjective Constitutional: Reports: no symptoms HEENT: Reports: no symptoms Respiratory: Reports: no symptoms Breasts: Reports: no symptoms Cardiovascular: Reports: no symptoms Gastrointestinal/Abdominal: Reports: no symptoms Genitourinary: Reports: no symptoms Neurologic: Reports: no symptoms Psychiatric: Reports: no symptoms Skin: Reports: no symptoms Endocrine: Reports: no symptoms Hematologic: Reports: no symptoms Musculoskeletal: Reports: no symptoms Allergies: Coded Allergies: PENICILLINS (Verified Allergy, Severe, Rash, 01/31/16) Swelling Redness Rash Objective Vital Signs Last 24 Hour Vital Signs Date Time Temp Pulse Resp B/P (MAP) Pulse Ox O2 Delivery O2 Flow Rate FiO2 07/10/17 09:00 92/57 07/10/17 08:06 97.4 84 22 92/57 98 Room Air 97.4 07/10/17 04:00 97.8 74 20 123/77 96 97.8 07/10/17 00:00 97.9 81 20 154/91 96 97.9 07/09/17 20:00 97.7 80 20 161/69 95 97.7 07/09/17 18:21 168/73 07/09/17 15:46 97.4 74 21 168/73 97 Room Air 97.4 74 Height (Feet): 5 Height (Inches): 6.00 Weight (Pounds): 197 General Appearance: WD/WN, no acute distress HEENT: normocephalic, atraumatic, anicteric, mucous membranes moist, PERRL Respiratory/Chest: chest wall non-tender, lungs clear, normal breath sounds, no respiratory distress, no accessory muscle use Cardiovascular: normal peripheral pulses, normal rate, regular rhythm, no gallop/murmur, no JVD Abdomen: normal bowel sounds, soft, non tender, no organomegaly, non distended , no mass, no scars Extremities: no cyanosis, no clubbing Skin: no rash, no lesions Neurologic/Psychiatric: alert, responsive Lymphatic: no neck adenopathy, no groin adenopathy Microbiology Date/Time Source Procedure Growth Status 07/08/17 13:55 Blood Blood Culture - Preliminary NO GROWTH AFTER 24 HOURS Resulted 07/08/17 13:50 Blood Blood Culture - Preliminary NO GROWTH AFTER 24 HOURS Resulted 07/08/17 09:10 Blood Blood Culture - Preliminary NO GROWTH AFTER 24 HOURS Resulted 07/08/17 09:00 Blood Blood Culture - Preliminary NO GROWTH AFTER 24 HOURS Resulted 07/08/17 09:25 Nasal Nares Influenza Types A,B Antigen (OLIVIA) - Final Complete 07/08/17 09:08 Urine,Clean Catch Urine Culture - Final Proteus Mirabilis Complete 07/08/17 09:20 Rectum VRE Culture - Final NO VANCOMYCIN RESISTANT ENTEROCOCCUS ... Complete Current Medications Medications (Trade) Dose Ordered Sig/Олег Route PRN Reason Start Time Stop Time Status Last Admin Dose Admin Acetaminophen (Tylenol) 650 mg Q6H PRN ORAL Prn Headache/Temp > 101 07/08/17 15:00 08/07/17 14:59 Benazepril HCl (Lotensin) 10 mg BID ORAL 07/09/17 18:00 08/08/17 08:59 07/09/17 18:21 Ceftriaxone Sodium 1 gm/ Sodium Chloride 55 ml @ 110 mls/hr Q24H IVPB 07/10/17 21:00 07/17/17 20:59 Clonidine HCl (Catapres Tab) 0.1 mg Q6H PRN ORAL BP over 160 syst 07/08/17 15:00 08/07/17 14:59 Clopidogrel Bisulfate (Plavix) 75 mg DAILY ORAL 07/09/17 09:00 08/08/17 08:59 07/10/17 09:51 Clotrimazole (Lotrimin) 1 applic THREE TIMES A DAY TOPIC 07/08/17 18:00 08/07/17 17:59 07/10/17 13:02 Docusate Sodium (Colace) 100 mg TID ORAL 07/08/17 18:00 08/07/17 17:59 07/10/17 09:51 Heparin Sodium (Porcine) (Heparin 5000 units/ml) 5,000 units EVERY 12 HOURS SUBQ 07/08/17 21:00 08/07/17 20:59 07/08/17 22:37 Oseltamivir Phosphate (Tamiflu) 75 mg Q12HR ORAL 07/08/17 21:00 07/13/17 20:59 07/10/17 09:51 Pantoprazole (Protonix) 40 mg BID ORAL 07/08/17 18:00 08/07/17 17:59 07/10/17 09:51 Promethazine HCl/ Codeine (Phenergan with Codeine) 5 ml Q4H PRN ORAL For Cough 07/08/17 17:45 08/07/17 17:44 Alicja Webster M.D. Jul 10, 2017 14:44
[2017-07-10 16:00] VITALS: BP 150/87
--- NOTE | 2017-07-10 16:00 | Pulmonology Progress Note ---
Assessment/Plan Assessment/Plan ASSESSMENT influenza type B UTI with proteus aspiration risk possible PNA DOOC HTN acute encephalopathy on chronic Alzheimer dementia PLAN OF CARE MS floor abx+ Theraflu ID follows O2 HHN prn BP and BS management as per PMD DVT prophayxlis supportive care bowel regimen DVT [id number] DNR/DMI status case discussed and evaluated by supervising physician Subjective Allergies: Coded Allergies: PENICILLINS (Verified Allergy, Severe, Rash, 01/31/16) Swelling Redness Rash Subjective afebrile no leucocytosis on RA pulse ox stable Objective Last 24 Hour Vital Signs Date Time Temp Pulse Resp B/P (MAP) Pulse Ox O2 Delivery O2 Flow Rate FiO2 07/10/17 09:00 92/57 07/10/17 08:06 97.4 84 22 92/57 98 Room Air 97.4 07/10/17 04:00 97.8 74 20 123/77 96 97.8 07/10/17 00:00 97.9 81 20 154/91 96 97.9 07/09/17 20:00 97.7 80 20 161/69 95 97.7 07/09/17 18:21 168/73 Intake and Output 07/09/17 07/10/17 19:00 07:00 Intake Total 1075 ml 240 ml Output Total 600 ml Balance 1075 ml -360 ml Intake Oral 480 ml 240 ml IV Total 595 ml Output Urine Total 600 ml # Voids 3 # Bowel Movements 1 General Appearance: no acute distress, other - eklderly bedridden female, open eyes spontaneously, poorly responsive HEENT: normocephalic, atraumatic, anicteric, other Respiratory/Chest: lungs clear - with poior air exchange , decreased breath sounds Cardiovascular: no JVD, other - mostly irregular Extremities: no edema Neurologic/Psychiatric: abnormal gait - bedridden , other - rigid , poorly resposnive Musculoskeletal: atrophy - BLE Microbiology Date/Time Source Procedure Growth Status 07/08/17 13:55 Blood Blood Culture - Preliminary NO GROWTH AFTER 24 HOURS Resulted 07/08/17 13:50 Blood Blood Culture - Preliminary NO GROWTH AFTER 24 HOURS Resulted 07/08/17 09:10 Blood Blood Culture - Preliminary NO GROWTH AFTER 24 HOURS Resulted 07/08/17 09:00 Blood Blood Culture - Preliminary NO GROWTH AFTER 24 HOURS Resulted 07/08/17 09:25 Nasal Nares Influenza Types A,B Antigen (OLIVIA) - Final Complete 07/08/17 09:08 Urine,Clean Catch Urine Culture - Final Proteus Mirabilis Complete 07/08/17 09:20 Rectum VRE Culture - Final NO VANCOMYCIN RESISTANT ENTEROCOCCUS ... Complete Current Medications Medications (Trade) Dose Ordered Sig/Олег Route PRN Reason Start Time Stop Time Status Last Admin Dose Admin Acetaminophen (Tylenol) 650 mg Q6H PRN ORAL Prn Headache/Temp > 101 07/08/17 15:00 08/07/17 14:59 Benazepril HCl (Lotensin) 10 mg BID ORAL 07/09/17 18:00 08/08/17 08:59 07/09/17 18:21 Ceftriaxone Sodium 1 gm/ Sodium Chloride 55 ml @ 110 mls/hr Q24H IVPB 07/10/17 21:00 07/17/17 20:59 Clonidine HCl (Catapres Tab) 0.1 mg Q6H PRN ORAL BP over 160 syst 07/08/17 15:00 08/07/17 14:59 Clopidogrel Bisulfate (Plavix) 75 mg DAILY ORAL 07/09/17 09:00 08/08/17 08:59 07/10/17 09:51 Clotrimazole (Lotrimin) 1 applic THREE TIMES A DAY TOPIC 07/08/17 18:00 08/07/17 17:59 07/10/17 13:02 Docusate Sodium (Colace) 100 mg TID ORAL 07/08/17 18:00 08/07/17 17:59 07/10/17 09:51 Heparin Sodium (Porcine) (Heparin 5000 units/ml) 5,000 units EVERY 12 HOURS SUBQ 07/08/17 21:00 08/07/17 20:59 07/08/17 22:37 Oseltamivir Phosphate (Tamiflu) 75 mg Q12HR ORAL 07/08/17 21:00 07/13/17 20:59 07/10/17 09:51 Pantoprazole (Protonix) 40 mg BID ORAL 07/08/17 18:00 08/07/17 17:59 07/10/17 09:51 Promethazine HCl/ Codeine (Phenergan with Codeine) 5 ml Q4H PRN ORAL For Cough 07/08/17 17:45 3/28/18 17:44 Bennett (Vanchtein),Amber SCOTT Jul 10, 2017 16:00
[2017-07-10 20:00] VITALS: BP 131/55
--- NOTE | 2017-07-10 20:10 | Cardiology Report ---
APPROVED REPORT EKG Measurement Heart [id number] Multifocal atrial rhythm. Nonspecific ST abnormality Abnormal ECG
[2017-07-10] MEDS: cefTRIAXone 1 GM in NS 55 ML IVPB SCH (20:42)
[2017-07-11] VITALS: BP 152/64
[2017-07-11 04:00] VITALS: BP 150/64
[2017-07-11 07:12] LABS: BASOPHILS % (AUTO) 0.9 % (0.0-2.0); EOSINOPHILS % (AUTO) 0.7 % (0.0-3.0); HEMOGLOBIN 14.6 G/DL (12.0-16.0); LYMPHOCYTES % (AUTO) 52.3 % (20.0-45.0); MEAN CORPUSCULAR VOLUME 93 FL (80-99); MONOCYTES % (AUTO) 12.6 % (1.0-10.0); NEUTROPHILS % (AUTO) 33.6 % (45.0-75.0); PLATELET COUNT 118 K/UL (150-450); RED BLOOD COUNT 4.52 M/UL (4.20-5.40); RED CELL DISTRIBUTION WIDTH 11.9 % (11.6-14.8); WHITE BLOOD COUNT 3.9 K/UL (4.8-10.8)
[2017-07-11 07:13] LABS: ALANINE AMINOTRANSFERASE 24 U/L (12-78); ALBUMIN 2.3 G/DL (3.4-5.0); ALBUMIN/GLOBULIN RATIO 0.6 (1.0-2.7); ALKALINE PHOSPHATASE 78 U/L (46-116); ANION GAP 6 mmol/L (5-15); ASPARTATE AMINO TRANSFERASE 25 U/L (15-37); BILIRUBIN,TOTAL 0.4 MG/DL (0.2-1.0); BLOOD UREA NITROGEN 10 mg/dL (7-18); CALCIUM 8.4 MG/DL (8.5-10.1); CARBON DIOXIDE 30 MMOL/L (21-32); CHLORIDE 105 MMOL/L (98-107); CREATININE 0.8 MG/DL (0.55-1.30); PHOSPHORUS 3.1 MG/DL (2.5-4.9); POTASSIUM 3.2 MMOL/L (3.5-5.1); SODIUM 141 MMOL/L (136-145)
[2017-07-11 08:00] VITALS: BP 168/78
[2017-07-11] MEDS: Heparin 5000 units/ml inj SUBQ SCH ×2 (08:43→21:00)
[2017-07-11] MEDS: Oseltamivir 75mg cap ORAL SCH ×2 (08:43→22:11)
[2017-07-11] MEDS: Benazepril 10mg tab ORAL SCH ×2 (08:44→17:44)
[2017-07-11] MEDS: Docusate 100mg cap ORAL SCH ×3 (08:44→17:43)
[2017-07-11 12:00] VITALS: BP 156/86
--- NOTE | 2017-07-11 14:35 | Pulmonology Progress Note ---
Assessment/Plan Problems: (1) Dyspnea (2) Pneumonia (3) At high risk for aspiration (4) UTI (urinary tract infection) (5) Cerebral vascular accident (6) HTN (hypertension) Assessment/Plan imrpovng eating better continue abx check cultures chest pt comfort feeding continue DNr dvt prophylaxis Subjective ROS Limited/Unobtainable: No Constitutional: Reports: no symptoms Respiratory: Reports: no symptoms Allergies: Coded Allergies: PENICILLINS (Verified Allergy, Severe, Rash, 01/31/16) Swelling Redness Rash Objective Last 24 Hour Vital Signs Date Time Temp Pulse Resp B/P (MAP) Pulse Ox O2 Delivery O2 Flow Rate FiO2 07/11/17 12:00 97.4 88 20 156/86 98 97.4 07/11/17 08:44 168/78 07/11/17 08:00 97.4 75 20 168/78 98 97.4 07/11/17 04:00 97.2 64 20 150/64 95 97.2 07/11/17 04:00 95 Room Air 07/11/17 00:00 98.5 71 20 152/64 98 Room Air 98.5 07/11/17 00:00 98 Room Air 07/10/17 20:00 96 Room Air 07/10/17 20:00 97.5 75 20 131/55 96 Room Air 97.5 07/10/17 17:16 150/87 07/10/17 16:00 98.3 75 20 150/87 96 98.3 Intake and Output 07/10/17 07/11/17 19:00 07:00 Intake Total 195 ml Output Total 400 ml 300 ml Balance -205 ml -300 ml Intake Oral 140 ml IV Total 55 ml Output Urine Total 400 ml 300 ml # Bowel Movements 1 1 General Appearance: WD/WN HEENT: normocephalic, atraumatic Respiratory/Chest: chest wall non-tender, lungs clear Abdomen: normal bowel sounds, soft, non tender Genitourinary: normal external genitalia Extremities: no clubbing Laboratory Tests 07/11/17 06:10: White Blood Count 3.9L, Red Blood Count 4.52, Hemoglobin 14.6, Hematocrit 42.0, Mean Corpuscular Volume 93, Mean Corpuscular Hemoglobin 32.3H, Mean Corpuscular Hemoglobin Concent 34.7, Red Cell Distribution Width 11.9, Platelet Count 118L, Mean Platelet Volume 6.1L, Neutrophils (%) (Auto) 33.6L, Lymphocytes (%) (Auto) 52.3H, Monocytes (%) (Auto) 12.6H, Eosinophils (%) (Auto) 0.7, Basophils (%) ( Auto) 0.9, Sodium Level 141, Potassium Level 3.2L, Chloride Level 105, Carbon Dioxide Level 30, Anion Gap 6, Blood Urea Nitrogen 10, Creatinine 0.8, Estimat Glomerular Filtration Rate , Glucose Level 137H, Calcium Level 8.4L, Phosphorus Level 3.1, Magnesium Level 2.1, Total Bilirubin 0.4, Aspartate Amino Transf (AST /SGOT) 25, Alanine Aminotransferase (ALT/SGPT) 24, Alkaline Phosphatase 78, C- Reactive Protein, Quantitative 1.7H, Total Protein 6.1L, Albumin 2.3L, Globulin 3.8, Albumin/Globulin Ratio 0.6L Current Medications Medications (Trade) Dose Ordered Sig/Олег Route PRN Reason Start Time Stop Time Status Last Admin Dose Admin Acetaminophen (Tylenol) 650 mg Q6H PRN ORAL Prn Headache/Temp > 101 07/08/17 15:00 08/07/17 14:59 Benazepril HCl (Lotensin) 10 mg BID ORAL 07/09/17 18:00 08/08/17 08:59 07/11/17 08:44 Ceftriaxone Sodium 1 gm/ Sodium Chloride 55 ml @ 110 mls/hr Q24H IVPB 07/10/17 21:00 07/17/17 20:59 07/10/17 20:42 Clonidine HCl (Catapres Tab) 0.1 mg Q6H PRN ORAL BP over 160 syst 07/08/17 15:00 08/07/17 14:59 Clopidogrel Bisulfate (Plavix) 75 mg DAILY ORAL 07/09/17 09:00 08/08/17 08:59 07/11/17 08:44 Clotrimazole (Lotrimin) 1 applic THREE TIMES A DAY TOPIC 07/08/17 18:00 08/07/17 17:59 07/11/17 13:17 Docusate Sodium (Colace) 100 mg TID ORAL 07/08/17 18:00 08/07/17 17:59 07/11/17 13:17 Heparin Sodium (Porcine) (Heparin 5000 units/ml) 5,000 units EVERY 12 HOURS SUBQ 07/08/17 21:00 08/07/17 20:59 07/10/17 20:41 Oseltamivir Phosphate (Tamiflu) 75 mg Q12HR ORAL 07/08/17 21:00 07/13/17 20:59 07/11/17 08:43 Pantoprazole (Protonix) 40 mg BID ORAL 07/08/17 18:00 08/07/17 17:59 07/11/17 08:44 Promethazine HCl/ Codeine (Phenergan with Codeine) 5 ml Q4H PRN ORAL For Cough 07/08/17 17:45 08/07/17 17:44 STANFORD MOREJON Jul 11, 2017 14:35
--- NOTE | 2017-07-11 15:03 | Infectious Diseases Prog Note ---
Assessment/Plan Problems: (1) Influenza B Assessment & Plan: continue tamiflu for 5 days, will keep in droplet isolation (2) UTI (urinary tract infection) Assessment & Plan: due to proteus mirabilis, will switch cefepime empirically , to ceftriaxon to finish her course for 7 days (3) Fever Assessment & Plan: due to the above, rule out sepsis , continue antibiotics, pending blood culture , continue Tylenol (4) Diabetes type 2, uncontrolled Assessment & Plan: recommend tight glycemic control to keep blood glucose between 100-140 Subjective Constitutional: Reports: no symptoms HEENT: Reports: no symptoms Respiratory: Reports: no symptoms Breasts: Reports: no symptoms Cardiovascular: Reports: no symptoms Gastrointestinal/Abdominal: Reports: no symptoms Genitourinary: Reports: no symptoms Neurologic: Reports: no symptoms Psychiatric: Reports: no symptoms Skin: Reports: no symptoms Endocrine: Reports: no symptoms Hematologic: Reports: no symptoms Musculoskeletal: Reports: no symptoms Allergies: Coded Allergies: PENICILLINS (Verified Allergy, Severe, Rash, 01/31/16) Swelling Redness Rash Objective Vital Signs Last 24 Hour Vital Signs Date Time Temp Pulse Resp B/P (MAP) Pulse Ox O2 Delivery O2 Flow Rate FiO2 07/11/17 12:00 97.4 88 20 156/86 98 97.4 07/11/17 08:44 168/78 07/11/17 08:00 97.4 75 20 168/78 98 97.4 07/11/17 04:00 97.2 64 20 150/64 95 97.2 07/11/17 04:00 95 Room Air 07/11/17 00:00 98.5 71 20 152/64 98 Room Air 98.5 07/11/17 00:00 98 Room Air 07/10/17 20:00 96 Room Air 07/10/17 20:00 97.5 75 20 131/55 96 Room Air 97.5 07/10/17 17:16 150/87 07/10/17 16:00 98.3 75 20 150/87 96 98.3 Height (Feet): 5 Height (Inches): 6.00 Weight (Pounds): 197 General Appearance: WD/WN, no acute distress HEENT: normocephalic, atraumatic, anicteric, mucous membranes moist, PERRL Respiratory/Chest: chest wall non-tender, lungs clear, normal breath sounds, no respiratory distress, no accessory muscle use Cardiovascular: normal peripheral pulses, normal rate, regular rhythm, no gallop/murmur, no JVD Abdomen: normal bowel sounds, soft, non tender, no organomegaly, non distended , no mass, no scars Extremities: no cyanosis, no clubbing Skin: no rash, no lesions Neurologic/Psychiatric: alert, oriented x 3 Lymphatic: no neck adenopathy, no groin adenopathy Musculoskeletal: normal muscle bulk, no effusion Laboratory Tests Test 07/11/17 06:10 White Blood Count 3.9 K/UL (4.8-10.8) L Red Blood Count 4.52 M/UL (4.20-5.40) Hemoglobin 14.6 G/DL (12.0-16.0) Hematocrit 42.0 % (37.0-47.0) Mean Corpuscular Volume 93 FL (80-99) Mean Corpuscular Hemoglobin 32.3 PG (27.0-31.0) H Mean Corpuscular Hemoglobin Concent 34.7 G/DL (32.0-36.0) Red Cell Distribution Width 11.9 % (11.6-14.8) Platelet Count 118 K/UL (150-450) L Mean Platelet Volume 6.1 FL (6.5-10.1) L Neutrophils (%) (Auto) 33.6 % (45.0-75.0) L Lymphocytes (%) (Auto) 52.3 % (20.0-45.0) H Monocytes (%) (Auto) 12.6 % (1.0-10.0) H Eosinophils (%) (Auto) 0.7 % (0.0-3.0) Basophils (%) (Auto) 0.9 % (0.0-2.0) Sodium Level 141 MMOL/L (136-145) Potassium Level 3.2 MMOL/L (3.5-5.1) L Chloride Level 105 MMOL/L (98-107) Carbon Dioxide Level 30 MMOL/L (21-32) Anion Gap 6 mmol/L (5-15) Blood Urea Nitrogen 10 mg/dL (7-18) Creatinine 0.8 MG/DL (0.55-1.30) Estimat Glomerular Filtration Rate mL/min (>60) Glucose Level 137 MG/DL (74-106) H Calcium Level 8.4 MG/DL (8.5-10.1) L Phosphorus Level 3.1 MG/DL (2.5-4.9) Magnesium Level 2.1 MG/DL (1.8-2.4) Total Bilirubin 0.4 MG/DL (0.2-1.0) Aspartate Amino Transf (AST/SGOT) 25 U/L (15-37) Alanine Aminotransferase (ALT/SGPT) 24 U/L (12-78) Alkaline Phosphatase 78 U/L (46-116) C-Reactive Protein, Quantitative 1.7 mg/dL (0.00-0.90) H Total Protein 6.1 G/DL (6.4-8.2) L Albumin 2.3 G/DL (3.4-5.0) L Globulin 3.8 g/dL Albumin/Globulin Ratio 0.6 (1.0-2.7) L Current Medications Medications (Trade) Dose Ordered Sig/Олег Route PRN Reason Start Time Stop Time Status Last Admin Dose Admin Acetaminophen (Tylenol) 650 mg Q6H PRN ORAL Prn Headache/Temp > 101 07/08/17 15:00 08/07/17 14:59 Benazepril HCl (Lotensin) 10 mg BID ORAL 07/09/17 18:00 08/08/17 08:59 07/11/17 08:44 Ceftriaxone Sodium 1 gm/ Sodium Chloride 55 ml @ 110 mls/hr Q24H IVPB 07/10/17 21:00 07/17/17 20:59 07/10/17 20:42 Clonidine HCl (Catapres Tab) 0.1 mg Q6H PRN ORAL BP over 160 syst 07/08/17 15:00 08/07/17 14:59 Clopidogrel Bisulfate (Plavix) 75 mg DAILY ORAL 07/09/17 09:00 08/08/17 08:59 07/11/17 08:44 Clotrimazole (Lotrimin) 1 applic THREE TIMES A DAY TOPIC 07/08/17 18:00 08/07/17 17:59 07/11/17 13:17 Docusate Sodium (Colace) 100 mg TID ORAL 07/08/17 18:00 08/07/17 17:59 07/11/17 13:17 Heparin Sodium (Porcine) (Heparin 5000 units/ml) 5,000 units EVERY 12 HOURS SUBQ 07/08/17 21:00 08/07/17 20:59 07/10/17 20:41 Oseltamivir Phosphate (Tamiflu) 75 mg Q12HR ORAL 07/08/17 21:00 07/13/17 20:59 07/11/17 08:43 Pantoprazole (Protonix) 40 mg BID ORAL 07/08/17 18:00 08/07/17 17:59 07/11/17 08:44 Promethazine HCl/ Codeine (Phenergan with Codeine) 5 ml Q4H PRN ORAL For Cough 07/08/17 17:45 08/07/17 17:44 Alicja Webster M.D. Jul 11, 2017 15:03
[2017-07-11 16:00] VITALS: BP 127/79
--- NOTE | 2017-07-11 16:49 | General Progress Note ---
Assessment/Plan Problem List: (1) Influenza B ICD Codes: J10.1 - Influenza due to other identified influenza virus with other respiratory manifestations SNOMED: 97888885 (2) UTI (urinary tract infection) ICD Codes: N39.0 - Urinary tract infection, site not specified SNOMED: 85406790 (3) Fever ICD Codes: R50.9 - Fever, unspecified SNOMED: 522241618 (4) Diabetes type 2, uncontrolled ICD Codes: E11.65 - Type 2 diabetes mellitus with hyperglycemia SNOMED: 930613481 (5) Alzheimer's dementia ICD Codes: G30.9 - Alzheimer's disease, unspecified SNOMED: 87069023 (6) HTN (hypertension) ICD Codes: I10 - Essential (primary) hypertension SNOMED: 87664446 (7) Hypovolemia ICD Codes: E86.1 - Hypovolemia SNOMED: 20534728 (8) Acute encephalopathy ICD Codes: G93.40 - Encephalopathy, unspecified SNOMED: 60654795, 137091341 Status: stable Assessment/Plan cefepime- KCL PO DC IV Breathing treatment increase lotensin start PO DC in am with oral antibiotics Subjective ROS Limited/Unobtainable: No Constitutional: Reports: malaise Allergies: Coded Allergies: PENICILLINS (Verified Allergy, Severe, Rash, 01/31/16) Swelling Redness Rash Objective Last 24 Hour Vital Signs Date Time Temp Pulse Resp B/P (MAP) Pulse Ox O2 Delivery O2 Flow Rate FiO2 07/11/17 12:00 97.4 88 20 156/86 98 97.4 07/11/17 08:44 168/78 07/11/17 08:00 97.4 75 20 168/78 98 97.4 07/11/17 04:00 97.2 64 20 150/64 95 97.2 07/11/17 04:00 95 Room Air 07/11/17 00:00 98.5 71 20 152/64 98 Room Air 98.5 07/11/17 00:00 98 Room Air 07/10/17 20:00 96 Room Air 07/10/17 20:00 97.5 75 20 131/55 96 Room Air 97.5 07/10/17 17:16 150/87 Intake and Output 07/10/17 07/11/17 19:00 07:00 Intake Total 195 ml Output Total 400 ml 300 ml Balance -205 ml -300 ml Intake Oral 140 ml IV Total 55 ml Output Urine Total 400 ml 300 ml # Bowel Movements 1 1 Laboratory Tests 07/11/17 06:10: White Blood Count 3.9L, Red Blood Count 4.52, Hemoglobin 14.6, Hematocrit 42.0, Mean Corpuscular Volume 93, Mean Corpuscular Hemoglobin 32.3H, Mean Corpuscular Hemoglobin Concent 34.7, Red Cell Distribution Width 11.9, Platelet Count 118L, Mean Platelet Volume 6.1L, Neutrophils (%) (Auto) 33.6L, Lymphocytes (%) (Auto) 52.3H, Monocytes (%) (Auto) 12.6H, Eosinophils (%) (Auto) 0.7, Basophils (%) ( Auto) 0.9, Sodium Level 141, Potassium Level 3.2L, Chloride Level 105, Carbon Dioxide Level 30, Anion Gap 6, Blood Urea Nitrogen 10, Creatinine 0.8, Estimat Glomerular Filtration Rate , Glucose Level 137H, Calcium Level 8.4L, Phosphorus Level 3.1, Magnesium Level 2.1, Total Bilirubin 0.4, Aspartate Amino Transf (AST /SGOT) 25, Alanine Aminotransferase (ALT/SGPT) 24, Alkaline Phosphatase 78, C- Reactive Protein, Quantitative 1.7H, Total Protein 6.1L, Albumin 2.3L, Globulin 3.8, Albumin/Globulin Ratio 0.6L Height (Feet): 5 Height (Inches): 6.00 Weight (Pounds): 197 General Appearance: no apparent distress, lethargic Neck: limited range of motion Cardiovascular: normal rate Respiratory/Chest: decreased breath sounds Abdomen: soft BARRY SMITH Jul 11, 2017 16:49
[2017-07-11] MEDS: cefTRIAXone 1 GM in NS 55 ML IVPB SCH (22:08)
[2017-07-12 04:00] VITALS: BP 152/71
[2017-07-12 08:00] VITALS: BP 134/72
[2017-07-12] MEDS: Heparin 5000 units/ml inj SUBQ SCH (09:00)
[2017-07-12] MEDS: Oseltamivir 75mg cap ORAL SCH (09:22)
[2017-07-12] MEDS: Docusate 100mg cap ORAL SCH ×3 (09:23→17:44)
[2017-07-12] MEDS: Benazepril 10mg tab ORAL SCH ×2 (09:23→17:44)
[2017-07-12 12:00] VITALS: BP 187/88
--- NOTE | 2017-07-12 12:24 | Pulmonology Progress Note ---
Assessment/Plan Assessment/Plan ASSESSMENT influenza type B UTI with Proteus aspiration risk possible PNA DOOC HTN acute encephalopathy on chronic Alzheimer dementia hypokalemia PLAN OF CARE MS floor abx + Theraflu as per ID O2 HHN prn BP and BS management as per PMD DVT prophayxlis supportive care bowel regimen DVT prophylaxis K replacement, on daily KCL DNR/DMI status dc plan per PMD case discussed and evaluated by supervising physician Subjective Allergies: Coded Allergies: PENICILLINS (Verified Allergy, Severe, Rash, 01/31/16) Swelling Redness Rash Subjective afebrile no leucocytosis on RA pulse ox stable Objective Last 24 Hour Vital Signs Date Time Temp Pulse Resp B/P (MAP) Pulse Ox O2 Delivery O2 Flow Rate FiO2 07/12/17 12:22 187/88 07/12/17 09:23 134/72 07/12/17 08:00 97.6 76 18 134/72 97 Room Air 97.6 07/12/17 04:00 97.3 75 20 152/71 97 Room Air 97.3 07/11/17 22:08 156/86 07/11/17 20:00 97.7 77 20 96 Room Air 97.7 07/11/17 17:44 156/86 07/11/17 16:00 97.3 73 20 127/79 96 97.3 Intake and Output 07/11/17 07/12/17 19:00 07:00 Intake Total 360 ml 255 ml Output Total 700 ml 350 ml Balance -340 ml -95 ml Intake Oral 360 ml 200 ml IV Total 55 ml Output Urine Total 700 ml 350 ml # Bowel Movements 1 Objective General Appearance: no acute distress, elderly bedridden female in NAD, awake, responsive HEENT: normocephalic, atraumatic, anicteric, Respiratory/Chest: lungs clear with moderate air exchange , decreased breath sounds Cardiovascular: no JVD, mostly irregular Extremities: no edema Neurologic/Psychiatric: abnormal gait /bedridden , rigid , responsive Musculoskeletal: atrophy - BLE Current Medications Medications (Trade) Dose Ordered Sig/Олег Route PRN Reason Start Time Stop Time Status Last Admin Dose Admin Acetaminophen (Tylenol) 650 mg Q6H PRN ORAL Prn Headache/Temp > 101 07/08/17 15:00 08/07/17 14:59 Benazepril HCl (Lotensin) 10 mg BID ORAL 07/09/17 18:00 3/29/18 08:59 07/12/17 09:23 Ceftriaxone Sodium 1 gm/ Sodium Chloride 55 ml @ 110 mls/hr Q24H IVPB 07/10/17 21:00 07/17/17 20:59 07/11/17 22:08 Clonidine HCl (Catapres Tab) 0.1 mg Q6H PRN ORAL BP over 160 syst 07/08/17 15:00 08/07/17 14:59 07/12/17 12:22 Clopidogrel Bisulfate (Plavix) 75 mg DAILY ORAL 07/09/17 09:00 08/08/17 08:59 07/12/17 09:22 Clotrimazole (Lotrimin) 1 applic THREE TIMES A DAY TOPIC 07/08/17 18:00 08/07/17 17:59 07/12/17 12:22 Docusate Sodium (Colace) 100 mg TID ORAL 07/08/17 18:00 08/07/17 17:59 07/12/17 12:21 Heparin Sodium (Porcine) (Heparin 5000 units/ml) 5,000 units EVERY 12 HOURS SUBQ 07/08/17 21:00 08/07/17 20:59 07/10/17 20:41 Oseltamivir Phosphate (Tamiflu) 75 mg Q12HR ORAL 07/08/17 21:00 07/13/17 00:00 07/12/17 09:22 Pantoprazole (Protonix) 40 mg BID ORAL 07/08/17 18:00 08/07/17 17:59 07/12/17 09:22 Potassium Chloride (K-Dur) 40 meq TWICE A DAY ORAL 07/11/17 18:00 08/10/17 17:59 07/12/17 09:22 Promethazine HCl/ Codeine (Phenergan with Codeine) 5 ml Q4H PRN ORAL For Cough 07/08/17 17:45 08/07/17 17:44 Amber Bennett NP ([facility]) Jul 12, 2017 12:24
--- NOTE | 2017-07-12 12:57 | Infectious Diseases Prog Note ---
Assessment/Plan Problems: (1) Influenza B Assessment & Plan: continue tamiflu for 5 days, and keep in droplet isolation (2) UTI (urinary tract infection) Assessment & Plan: due to proteus mirabilis, on ceftriaxon to finish her course for 7 days , may switch to oral keflex if discharged today (3) Fever Assessment & Plan: due to the above, resolved , continue antibiotics, pending blood culture , continue Tylenol (4) Diabetes type 2, uncontrolled Assessment & Plan: recommend tight glycemic control to keep blood glucose between 100-140 Subjective ROS Limited/Unobtainable: Yes Constitutional: Reports: no symptoms HEENT: Reports: no symptoms Respiratory: Reports: no symptoms Breasts: Reports: no symptoms Cardiovascular: Reports: no symptoms Gastrointestinal/Abdominal: Reports: no symptoms Genitourinary: Reports: no symptoms Neurologic: Reports: no symptoms Psychiatric: Reports: no symptoms Skin: Reports: no symptoms Endocrine: Reports: no symptoms Hematologic: Reports: no symptoms Allergies: Coded Allergies: PENICILLINS (Verified Allergy, Severe, Rash, 01/31/16) Swelling Redness Rash Objective Vital Signs Last 24 Hour Vital Signs Date Time Temp Pulse Resp B/P (MAP) Pulse Ox O2 Delivery O2 Flow Rate FiO2 07/12/17 12:22 187/88 07/12/17 09:23 134/72 07/12/17 08:00 97.6 76 18 134/72 97 Room Air 97.6 07/12/17 04:00 97.3 75 20 152/71 97 Room Air 97.3 07/11/17 22:08 156/86 07/11/17 20:00 97.7 77 20 96 Room Air 97.7 07/11/17 17:44 156/86 07/11/17 16:00 97.3 73 20 127/79 96 97.3 Height (Feet): 5 Height (Inches): 6.00 Weight (Pounds): 197 General Appearance: WD/WN, no acute distress HEENT: normocephalic, atraumatic, anicteric, mucous membranes moist, PERRL, EOMI, pharynx normal Respiratory/Chest: chest wall non-tender, lungs clear, normal breath sounds, no respiratory distress, no accessory muscle use Cardiovascular: normal peripheral pulses, normal rate, regular rhythm, no gallop/murmur, no JVD Abdomen: normal bowel sounds, soft, non tender, no organomegaly, non distended , no mass, no scars Extremities: no cyanosis, no clubbing Skin: no rash, no lesions Neurologic/Psychiatric: alert, responsive Current Medications Medications (Trade) Dose Ordered Sig/Олег Route PRN Reason Start Time Stop Time Status Last Admin Dose Admin Acetaminophen (Tylenol) 650 mg Q6H PRN ORAL Prn Headache/Temp > 101 07/08/17 15:00 08/07/17 14:59 Benazepril HCl (Lotensin) 10 mg BID ORAL 07/09/17 18:00 08/08/17 08:59 07/12/17 09:23 Ceftriaxone Sodium 1 gm/ Sodium Chloride 55 ml @ 110 mls/hr Q24H IVPB 07/10/17 21:00 07/17/17 20:59 07/11/17 22:08 Clonidine HCl (Catapres Tab) 0.1 mg Q6H PRN ORAL BP over 160 syst 07/08/17 15:00 08/07/17 14:59 07/12/17 12:22 Clopidogrel Bisulfate (Plavix) 75 mg DAILY ORAL 07/09/17 09:00 08/08/17 08:59 07/12/17 09:22 Clotrimazole (Lotrimin) 1 applic THREE TIMES A DAY TOPIC 07/08/17 18:00 08/07/17 17:59 07/12/17 12:22 Docusate Sodium (Colace) 100 mg TID ORAL 07/08/17 18:00 08/07/17 17:59 07/12/17 12:21 Heparin Sodium (Porcine) (Heparin 5000 units/ml) 5,000 units EVERY 12 HOURS SUBQ 07/08/17 21:00 08/07/17 20:59 07/10/17 20:41 Oseltamivir Phosphate (Tamiflu) 75 mg Q12HR ORAL 07/08/17 21:00 07/13/17 00:00 07/12/17 09:22 Pantoprazole (Protonix) 40 mg BID ORAL 07/08/17 18:00 08/07/17 17:59 07/12/17 09:22 Potassium Chloride (K-Dur) 40 meq TWICE A DAY ORAL 07/11/17 18:00 08/10/17 17:59 07/12/17 09:22 Promethazine HCl/ Codeine (Phenergan with Codeine) 5 ml Q4H PRN ORAL For Cough 07/08/17 17:45 08/07/17 17:44 Alicja Webster M.D. Jul 12, 2017 12:57
--- NOTE | 2017-07-12 14:59 | General Progress Note ---
Assessment/Plan Problem List: (1) Influenza B ICD Codes: J10.1 - Influenza due to other identified influenza virus with other respiratory manifestations SNOMED: 36606982 (2) UTI (urinary tract infection) ICD Codes: N39.0 - Urinary tract infection, site not specified SNOMED: 65725925 (3) Fever ICD Codes: R50.9 - Fever, unspecified SNOMED: 299509206 (4) Diabetes type 2, uncontrolled ICD Codes: E11.65 - Type 2 diabetes mellitus with hyperglycemia SNOMED: 497341805 (5) Alzheimer's dementia ICD Codes: G30.9 - Alzheimer's disease, unspecified SNOMED: 54153362 (6) HTN (hypertension) ICD Codes: I10 - Essential (primary) hypertension SNOMED: 87808141 (7) Hypovolemia ICD Codes: E86.1 - Hypovolemia SNOMED: 16051374 (8) Acute encephalopathy ICD Codes: G93.40 - Encephalopathy, unspecified SNOMED: 71735458, 600557974 Assessment/Plan DC on PO Keflex Subjective ROS Limited/Unobtainable: No Allergies: Coded Allergies: PENICILLINS (Verified Allergy, Severe, Rash, 01/31/16) Swelling Redness Rash Objective Last 24 Hour Vital Signs Date Time Temp Pulse Resp B/P (MAP) Pulse Ox O2 Delivery O2 Flow Rate FiO2 07/12/17 12:22 187/88 07/12/17 12:00 97.4 66 18 187/88 98 Room Air 97.4 07/12/17 09:23 134/72 07/12/17 08:00 97.6 76 18 134/72 97 Room Air 97.6 07/12/17 04:00 97.3 75 20 152/71 97 Room Air 97.3 07/11/17 22:08 156/86 07/11/17 20:00 97.7 77 20 96 Room Air 97.7 07/11/17 17:44 156/86 07/11/17 16:00 97.3 73 20 127/79 96 97.3 Intake and Output 07/11/17 07/12/17 19:00 07:00 Intake Total 360 ml 255 ml Output Total 700 ml 350 ml Balance -340 ml -95 ml Intake Oral 360 ml 200 ml IV Total 55 ml Output Urine Total 700 ml 350 ml # Bowel Movements 1 Current Medications Medications (Trade) Dose Ordered Sig/Олег Route PRN Reason Start Time Stop Time Status Last Admin Dose Admin Acetaminophen (Tylenol) 650 mg Q6H PRN ORAL Prn Headache/Temp > 101 07/08/17 15:00 08/07/17 14:59 Benazepril HCl (Lotensin) 10 mg BID ORAL 07/09/17 18:00 08/08/17 08:59 07/12/17 09:23 Ceftriaxone Sodium 1 gm/ Sodium Chloride 55 ml @ 110 mls/hr Q24H IVPB 07/10/17 21:00 07/17/17 20:59 07/11/17 22:08 Clonidine HCl (Catapres Tab) 0.1 mg Q6H PRN ORAL BP over 160 syst 07/08/17 15:00 08/07/17 14:59 07/12/17 12:22 Clopidogrel Bisulfate (Plavix) 75 mg DAILY ORAL 07/09/17 09:00 08/08/17 08:59 07/12/17 09:22 Clotrimazole (Lotrimin) 1 applic THREE TIMES A DAY TOPIC 07/08/17 18:00 08/07/17 17:59 07/12/17 12:22 Docusate Sodium (Colace) 100 mg TID ORAL 07/08/17 18:00 08/07/17 17:59 07/12/17 12:21 Heparin Sodium (Porcine) (Heparin 5000 units/ml) 5,000 units EVERY 12 HOURS SUBQ 07/08/17 21:00 08/07/17 20:59 07/10/17 20:41 Oseltamivir Phosphate (Tamiflu) 75 mg Q12HR ORAL 07/08/17 21:00 07/13/17 00:00 07/12/17 09:22 Pantoprazole (Protonix) 40 mg BID ORAL 07/08/17 18:00 08/07/17 17:59 07/12/17 09:22 Potassium Chloride (K-Dur) 40 meq TWICE A DAY ORAL 07/11/17 18:00 08/10/17 17:59 07/12/17 09:22 Promethazine HCl/ Codeine (Phenergan with Codeine) 5 ml Q4H PRN ORAL For Cough 07/08/17 17:45 08/07/17 17:44 Height (Feet): 5 Height (Inches): 6.00 Weight (Pounds): 197 General Appearance: no apparent distress Objective no change BARRY SMITH Jul 12, 2017 14:58
[2017-07-12] MEDS ORDERED: TAMIFLU75 MG ORAL (15:03)
[2017-07-12] MEDS ORDERED: CEPHALEXIN500 MG ORAL (15:03)
--- NOTE | 2017-07-12 15:04 | Discharge Instructions ---
Discharge Instructions Discharge Instructions Follow up with: me at [facility] Diet: cardiac 2 GM Na, low fat Follow Up Orders aspiration percautions routin skin care For Congestive Heart Failure Reminder Report to your physician any weight gain of 5 pounds or more in one week. BARYR SMITH Jul 12, 2017 15:03
[2017-07-12 16:00] VITALS: BP 178/88
[2017-07-12 17:44] VITALS: BP 187/88
[2017-07-12] MEDS ORDERED: D5 1/2NS 1000ml IV ONE (19:09)
[2017-07-12] MEDS ORDERED: Tubing IV Secondary IV ONE (19:09)
[2017-07-12] MEDS ORDERED: NS 275ml ONE (19:09)
--- NOTE | 2017-07-15 11:50 | Discharge Summary ---
Discharge Summary Hospital Course Date of Admission Jul 08, 2017 at 10:37 Date of Discharge Jul 12, 2017 at 19:10 Admitting Diagnosis influenza,uti HPI Jaelyn Polk is a 86 year old female who was admitted on Jul 08, 2017 at 10 :37 for Influenza,Urinary Tract Infection Hospital Course dc summary #[id number] Discharge Medications New Medications: Cephalexin* (Keflex*) 500 Mg Capsule 500 MG ORAL EVERY 6 HOURS for 7 Days, #30 CAP Oseltamivir Phosphate (Tamiflu) 75 Mg Capsule 75 MG ORAL Q12HR for 1 Day, CAP Continued Medications: Acetaminophen (Acetaminophen) 650 Mg/20.3 Ml Solution 650 MG ORAL Q6H PRN for Prn Headache/Temp > 101, ML 0 Refills Atorvastatin (Lipitor) 80 Mg Tablet 80 MG ORAL BEDTIME, #30 TAB 0 Refills Benazepril Hcl* (Benazepril Hcl*) 10 Mg Tablet 10 MG ORAL Q12HR for 30 Days, TAB Clopidogrel Bisulfate* (Plavix*) 75 Mg Tablet 75 MG ORAL DAILY for 90 Days, TAB Docusate Sodium (Dulcolax Stool Softener) 100 Mg Capsule 10 MG PO for Constipation, SUPP Pantoprazole Sodium (Protonix) 20 Mg Tablet.dr 20 MG ORAL DAILY, TAB Discharge Condition Upon Discharge: stable Discharge Disposition Patient was discharged to SNF/Subacute Facility(03) Discharge Diagnoses: Discharge Instructions [facility]charge [facility]Amber NP Jul 15, 2017 11:50
--- NOTE | 2017-07-15 22:00 | Discharge Summary 2 SIG ---
DATE OF ADMISSION: 07/08/2017 DATE OF DISCHARGE: 07/12/2017 REASON FOR ADMISSION: The patient is an 86-year-old female with past medical history of diabetes, hypertension, and dementia, who was sent from long term facility for evaluation of fever, congestion and cough. Upon evaluation, the patient was febrile. Influenza screen was positive for influenza type B. EKG revealed normal sinus rhythm. No acute ischemic changes. Chest x-ray revealed no acute cardiopulmonary pathology. The patient's urinalysis was consistent with evidence of infection. The patient pancultured, started on empiric antibiotics and admitted for further management. Troponin was negative. Lactic acid was 1.4. No leukocytosis. So, the patient admitted with diagnoses influenza type B, UTI, diabetes mellitus out of control, hypertension, organic brain syndrome, aspiration risk, altered level of consciousness and possible pneumonia. HOSPITAL COURSE: The patient admitted. The patient initially kept NPO due to the altered mental status, and the patient was hydrated with IV fluids. The patient was started on empiric antibiotics. ID and Pulmonology consults were requested. The patient was on Tamiflu for influenza type B. Urine culture grew Proteus. Blood culture were negative. Chest x-ray ,as mentioned above, revealed no acute cardiopulmonary pathology. Ambrose catheter was placed. Intake and output were closely monitored along with renal parameters .Electrolytes were corrected as needed, specifically potassium. Lipid panel was stable. Blood pressure was managed with DULCE inhibitor. Statin and antiplatelet therapy were continued. Blood sugar was managed with sliding scale of insulin Hemoglobin AS1c-8.6, not at goal. The patietn will need further optimization of antiglycemic regimen as outpatient. Swallow evaluation was done when the patient was more alert and it showed that the patient had moderate oropharyngeal dysphagia. Diet started as per speech therapist recommendations for quality of life: slowly initiated moist pureed with nectar thick liquids diabetic diet with strict aspiration/reflux precaution and one-to-one feeding. GI prophylaxis provided. Video swallow evaluation was recommended, which can be done as outpatient. The patient was stable for discharge back to long term facility. Fever resolved. The patient was discharged on oral Keflex and Tamiflu to complete the course. . FINAL DIAGNOSES: 1. Influenza type B. 2. Urinary tract infection with Proteus. 3. Diabetes out of control. 4. Hypertension. 5. Organic brain syndrome. 6. Acute encephalopathy on chronic Alzheimer dementia. 7. Aspiration risk. 8. Possible pneumonia. DISCHARGE MEDICATIONS: See medication reconciliation list. DISCHARGE INSTRUCTIONS: The patient discharged to long term facility. FOLLOWUP: Follow up with medical doctor at the facility. Delon Sanchez M.D. Amber MartinezSt. Lawrence Health SystemJorge N.PPeggy DR: SAL JOB#: [id number] CC: [id number]
== END 2017-07-12 19:10 | DRG 193 ==
LOC: EDBD 08:37 → EMR 09:30 → EDBEDREQ 10:03 → 4E 10:37 → EDBEDREQ 11:06
DX: J10.00 Influenza due to other identified influenza virus with unspecified type of pneumonia (principal); G93.40 Encephalopathy, unspecified; E11.65 Type 2 diabetes mellitus with hyperglycemia; N39.0 Urinary tract infection, site not specified; R13.12 Dysphagia, oropharyngeal phase; E86.1 Hypovolemia; I10 Essential (primary) hypertension; G30.9 Alzheimer's disease, unspecified; F02.80 Dementia in other diseases classified elsewhere, unspecified severity, without behavioral disturbance, psychotic disturbance, mood disturbance, and anxiety; B96.4 Proteus (mirabilis) (morganii) as the cause of diseases classified elsewhere; Z88.0 Allergy status to penicillin; Z79.02 Long term (current) use of antithrombotics/antiplatelets; Z66 Do not resuscitate; F09 Unspecified mental disorder due to known physiological condition
CPT/HCPCS: 36415; 71045; 80053; 80061; 81003; 82607; 82746; 82962; 83036; 83605; 83735; 83880; 84100; 84443; 84484; 84550; 85025; 86140; 86710; 87040; 87081; 87086; 87181; 93005; 99285; J8499

== ENCOUNTER 2017-09-24 19:03 | Inpatient (IN) | payer MEDICARE, BC, MEDICAID ==
[~2017-09-24] VITALS: Ht 154.9 cm; Wt 67.9 kg
[~2017-09-24 19:03] MED LIST changes: +A & D OINT1 APPLI1; +CENTRUM ADULTS1 EACH PO; +CEPHALEXIN500 MG ORAL; +DULCOLAX STOOL100 M1 PO; +FLEET ENEMA133 M1 RC; +MOM30 ML ORAL; +PROTONIX20 MG ORAL; +TAMIFLU75 MG ORAL; +TYLENOL EXTRA500 MG ORAL; +VITAMIN C500 M3 ORAL
[2017-09-24] MEDS ORDERED: Cefepime HCl 1 GM in NS 55 ML IV SCH (19:15)
[2017-09-24 19:30] VITALS: BP 144/56
[2017-09-24 19:54] LABS: BASOPHILS % (AUTO) 0.7 % (0.0-2.0); EOSINOPHILS % (AUTO) 0.8 % (0.0-3.0); HEMATOCRIT 48.9 % (37.0-47.0); HEMOGLOBIN 15.5 G/DL (12.0-16.0); MEAN CORPUSCULAR VOLUME 95 FL (80-99); MONOCYTES % (AUTO) 6.4 % (1.0-10.0); NEUTROPHILS % (AUTO) 70.1 % (45.0-75.0); PLATELET COUNT 231 K/UL (150-450); RED BLOOD COUNT 5.12 M/UL (4.20-5.40); RED CELL DISTRIBUTION WIDTH 13.6 % (11.6-14.8); WHITE BLOOD COUNT 12.7 K/UL (4.8-10.8)
[2017-09-24 19:58] LABS: APPEARANCE,URINE SLIGHTLY CLOUDY; BILIRUBIN, URINE NEGATIVE (NEGATIVE); GLUCOSE, URINE (UA) 3+ (NEGATIVE); KETONES,URINE NEGATIVE (NEGATIVE); LEUKOCYTE ESTERASE ,URINE 3+ (NEGATIVE); NITRITE,URINE POSITIVE (NEGATIVE); PH,URINE 5 (4.5-8.0); PROTEIN,URINE 2+ (NEGATIVE); UROBILINOGEN,URINE 1 MG/DL (0.0-1.0)
[2017-09-24 20:03] LABS: COLOR,URINE YELLOW
[2017-09-24 20:18] LABS: ALANINE AMINOTRANSFERASE 25 U/L (12-78); ALBUMIN 3.1 G/DL (3.4-5.0); ALBUMIN/GLOBULIN RATIO 0.7 (1.0-2.7); ALKALINE PHOSPHATASE 119 U/L (46-116); ANION GAP 13 mmol/L (5-15); ASPARTATE AMINO TRANSFERASE 19 U/L (15-37); BILIRUBIN,TOTAL 0.5 MG/DL (0.2-1.0); BLOOD UREA NITROGEN 30 mg/dL (7-18); CALCIUM 9.2 MG/DL (8.5-10.1); CARBON DIOXIDE 27 MMOL/L (21-32); CHLORIDE 122 MMOL/L (98-107); CKMB 2.8 NG/ML (0.0-3.6); CREATINE KINASE 222 U/L (26-308); CREATININE 1.9 MG/DL (0.55-1.30); POTASSIUM 3.6 MMOL/L (3.5-5.1)
[2017-09-24 20:30] VITALS: BP 136/65
--- NOTE | 2017-09-24 20:35 | Emergency Room Report ---
History of Present Illness General Chief Complaint: Generalized Weakness Source: Patient, Medical Record, EMS Present Illness HPI This patient presents from a alf facility. The patient has a history of dementia and encephalopathy. She presents secondary to decreased alertness. The patient at baseline is confused but alert. Per report, over the past couple days the patient has been less active and sleeping more often. The patient is unable to give a history. There is no other history of present illness available. Allergies: Coded Allergies: PENICILLINS (Verified Allergy, Severe, Rash, 01/31/16) Swelling Redness Rash Patient History Past Medical History: see triage record, HTN, ND, CAD, GERD, CVA/TIA, dementia Social History: Denies: smoking, alcohol use, drug use Reviewed Nursing Documentation: PMH: Agreed; PSxH: Agreed Nursing Documentation-PMH Past Medical History: No History, Except For Hx Cardiac Problems: Yes Hx COPD: No - Pneumonia Hx Diabetes: Yes Hx Cancer: No Hx Gastrointestinal Problems: Yes Hx Dialysis: No - UTI Hx Neurological Problems: Yes Hx Dementia: Yes Hx Alzheimer's Disease: Yes Hx Syncope: Yes Review of Systems All Other Systems: negative except mentioned in HPI Physical Exam Vital Signs Date Time Temp Pulse Resp B/P (MAP) Pulse Ox O2 Delivery O2 Flow Rate FiO2 09/24/17 19:02 97.8 108 18 101/56 99 Nasal Cannula 2.0 97.9 Sp02 EP Interpretation: reviewed, normal General Appearance: no apparent distress, GCS 15, non-toxic, other - Sleepy but arousable to answer yes/no questions., Chronically Ill Head: normocephalic, atraumatic Eyes: bilateral eye normal inspection, bilateral eye PERRL ENT: hearing grossly normal, normal pharynx, no angioedema, normal voice Neck: full range of motion, supple/symm/no masses Respiratory: chest non-tender, lungs clear, normal breath sounds, no respiratory distress, no retraction, no accessory muscle use, speaking full sentences Cardiovascular #1: regular rate, rhythm, no edema Gastrointestinal: normal bowel sounds, non tender, soft, non-distended, no guarding, no rebound Rectal: deferred Musculoskeletal: back normal, gait/station normal, normal range of motion, non- tender Neurologic: alert, oriented x3, responsive, motor strength/tone normal, sensory intact, speech normal Psychiatric: judgement/insight normal, memory normal, mood/affect normal, no suicidal/homicidal ideation Skin: normal color, no rash, warm/dry, well hydrated Medical Decision Making Diagnostic Impression: Primary Impression: Sepsis Additional Impressions: Pyelonephritis Hypernatremia Acute kidney injury Lactic acidosis Hyperglycemia ER Course This elderly female presents with a urinary tract infection. She does have decreased alertness. She has a nonfocal neurologic examination. She does have an elevated white blood cell count and elevated lactate. She is also found to have hypernatremia with a sodium of 163. She has hyperglycemia with a blood sugar in the high 300s. She also has acute kidney injury. The patient meets criteria for sepsis. She is given IV fluids and broad-spectrum antibiotics and monitored closely and admitted for further evaluation and treatment. This patient is critically ill. This patient required complex medical decision- making, aggressive intervention, extensive laboratory workup and monitoring. Critical care time: 40 minutes. Laboratory Tests Test 09/24/17 19:30 White Blood Count 12.7 K/UL (4.8-10.8) H Red Blood Count 5.12 M/UL (4.20-5.40) Hemoglobin 15.5 G/DL (12.0-16.0) Hematocrit 48.9 % (37.0-47.0) H Mean Corpuscular Volume 95 FL (80-99) Mean Corpuscular Hemoglobin 30.2 PG (27.0-31.0) Mean Corpuscular Hemoglobin Concent 31.7 G/DL (32.0-36.0) L Red Cell Distribution Width 13.6 % (11.6-14.8) Platelet Count 231 K/UL (150-450) Mean Platelet Volume 6.7 FL (6.5-10.1) Neutrophils (%) (Auto) 70.1 % (45.0-75.0) Lymphocytes (%) (Auto) 22.0 % (20.0-45.0) Monocytes (%) (Auto) 6.4 % (1.0-10.0) Eosinophils (%) (Auto) 0.8 % (0.0-3.0) Basophils (%) (Auto) 0.7 % (0.0-2.0) Urine Color Yellow Urine Appearance Slightly cloudy Urine pH 5 (4.5-8.0) Urine Specific [place] 1.015 (1.005-1.035) Urine Protein 2+ (NEGATIVE) H Urine Glucose (UA) 3+ (NEGATIVE) H Urine Ketones Negative (NEGATIVE) Urine Occult Blood 4+ (NEGATIVE) H Urine Nitrite Positive (NEGATIVE) H Urine Bilirubin Negative (NEGATIVE) Urine Urobilinogen 1 MG/DL (0.0-1.0) H Urine Leukocyte Esterase 3+ (NEGATIVE) H Urine RBC 5-10 /HPF (0 - 2) H Urine WBC 20-30 /HPF (0 - 2) H Urine Squamous Epithelial Cells Occasional /LPF Urine Amorphous Sediment Few /LPF (NONE) H Urine Bacteria Moderate /HPF (NONE) H Sodium Level 163 MMOL/L (136-145) *H Potassium Level 3.6 MMOL/L (3.5-5.1) Chloride Level 122 MMOL/L (98-107) H Carbon Dioxide Level 27 MMOL/L (21-32) Anion Gap 13 mmol/L (5-15) Blood Urea Nitrogen 30 mg/dL (7-18) H Creatinine 1.9 MG/DL (0.55-1.30) H Estimate Glomerular Filtration Rate mL/min (>60) Glucose Level 393 MG/DL (74-106) H Lactic Acid Level 2.90 mmol/L (0.66-2.22) H Calcium Level 9.2 MG/DL (8.5-10.1) Total Bilirubin 0.5 MG/DL (0.2-1.0) Aspartate Amino Transferase (AST) 19 U/L (15-37) Alanine Aminotransferase (ALT) 25 U/L (12-78) Alkaline Phosphatase 119 U/L (46-116) H Total Creatine Kinase 222 U/L (26-308) Creatine Kinase MB 2.8 NG/ML (0.0-3.6) Creatine Kinase MB Relative Index 1.2 Troponin I 0.009 ng/mL (0.000-0.056) Total Protein 7.7 G/DL (6.4-8.2) Albumin 3.1 G/DL (3.4-5.0) L Globulin 4.6 g/dL Albumin/Globulin Ratio 0.7 (1.0-2.7) L EKG Diagnostic Results Rate: tachycardiac Rhythm: other - s.tachycardia ST Segments: other - NSST Rhythm Strip Diag. Results EP Interpretation: yes Rate: 100's Rhythm: no PVC's, no ectopy, other Chest X-Ray Diagnostic Results Chest X-Ray Diagnostic Results : Chest X-Ray Ordered: Yes # of Views/Limited/Complete: 1 View Indication: Other - ams EP Interpretation: Yes Interpretation: no consolidation, no effusion, no pneumothorax, no acute cardiopulmonary disease Impression: No acute disease Electronically Signed by: Kenn Last Vital Signs Date Time Temp Pulse Resp B/P (MAP) Pulse Ox O2 Delivery O2 Flow Rate FiO2 09/24/17 19:02 97.8 108 18 101/56 99 Nasal Cannula 2.0 97.9 Disposition: ADMITTED INPATIENT Condition: Serious Referrals: BARRY SMITH (PCP) MARLYS GRIGGS D.O. September 24, 2017 20:35
[2017-09-24 20:39] LABS: SODIUM 163 MMOL/L (136-145)
[2017-09-24 21:30] VITALS: BP 141/71
[2017-09-24 22:30] VITALS: BP 126/68
--- NOTE | 2017-09-24 22:56 | History & Physical ---
History and Physical History & Physicial encephalopathy pyelo UTI Dementia DM # [id number] BARRY SMITH September 24, 2017 22:56
[2017-09-24] MEDS ORDERED: Acetaminophen 500mg (ES) tab ORAL PRN (23:00)
[2017-09-24] MEDS: Pantoprazole Inj IVP SCH (23:47)
[2017-09-25] VITALS: BP 120/69
[2017-09-25 04:00] VITALS: BP 152/68
[2017-09-25 06:38] LABS: BASOPHILS % (AUTO) 0.6 % (0.0-2.0); EOSINOPHILS % (AUTO) 2.5 % (0.0-3.0); HEMATOCRIT 42.2 % (37.0-47.0); HEMOGLOBIN 13.3 G/DL (12.0-16.0); LYMPHOCYTES % (AUTO) 19.9 % (20.0-45.0); MEAN CORPUSCULAR VOLUME 97 FL (80-99); MONOCYTES % (AUTO) 5.4 % (1.0-10.0); NEUTROPHILS % (AUTO) 71.6 % (45.0-75.0); PLATELET COUNT 180 K/UL (150-450); RED BLOOD COUNT 4.35 M/UL (4.20-5.40); RED CELL DISTRIBUTION WIDTH 13.7 % (11.6-14.8); WHITE BLOOD COUNT 9.4 K/UL (4.8-10.8)
[2017-09-25] MEDS ORDERED: Cefepime 1gm in D5W 55ml IVPB SCH (07:15)
[2017-09-25] MEDS ORDERED: Cefepime HCl 1 GM in NS 55 ML IV SCH (07:15)
[2017-09-25 07:18] LABS: ALANINE AMINOTRANSFERASE 23 U/L (12-78); ALBUMIN 2.6 G/DL (3.4-5.0); ALBUMIN/GLOBULIN RATIO 0.7 (1.0-2.7); ALKALINE PHOSPHATASE 107 U/L (46-116); ANION GAP 11 mmol/L (5-15); ASPARTATE AMINO TRANSFERASE 18 U/L (15-37); BILIRUBIN,TOTAL 0.6 MG/DL (0.2-1.0); BLOOD UREA NITROGEN 25 mg/dL (7-18); CARBON DIOXIDE 25 MMOL/L (21-32); CHLORIDE 128 MMOL/L (98-107); CHOLESTEROL 125 MG/DL (< 200); CREATININE 1.3 MG/DL (0.55-1.30); GAMMA GLUTAMYL TRANSPEPTIDASE 44 U/L (5-85); HDL CHOLESTEROL 32 MG/DL (40-60); PHOSPHORUS 3.4 MG/DL (2.5-4.9); POTASSIUM 3.3 MMOL/L (3.5-5.1); TRIGLYCERIDES 151 MG/DL (30-150)
[2017-09-25 07:22] LABS: SODIUM 164 MMOL/L (136-145)
[2017-09-25 08:00] VITALS: BP 140/66
[2017-09-25] MEDS: Pantoprazole Inj IVP SCH (08:57)
[2017-09-25] MEDS: Heparin 5000 units/ml inj SUBQ SCH ×2 (08:59→21:03)
[2017-09-25] MEDS ORDERED: Potassium Chloride 40 MEQ in Sodium Chloride 500ML 550 ML IVPB ONE (09:45)
--- NOTE | 2017-09-25 10:46 | Diagnostic Imaging Report ---
Indication: Shortness of breath Technique: One view of the chest Comparison: 07/08/2017 Findings: Suboptimal inspiration. Lungs and pleural spaces are clear. Normal heart size. Tortuous ectatic aorta. Upper mediastinum is unremarkable. No significant interim change Impression: No acute process
[2017-09-25] MEDS: NovoLOG Insulin Flexpen SUBQ SCH ×3 (11:49→21:02)
[2017-09-25 11:54] VITALS: BP 149/65
--- NOTE | 2017-09-25 13:54 | Infectious Diseases Prog Note ---
Assessment/Plan Problems: (1) UTI (urinary tract infection) Assessment & Plan: recurrent , continue cefepime pending urine culture results (2) Sepsis Assessment & Plan: due to the above, on cefepime empirically, pending blood culture (3) Diabetes type 2, uncontrolled Assessment & Plan: recommend tight glycemic control to keep blood glucose between 100-140 (4) Acute encephalopathy Assessment & Plan: due to the above, continue neuro check and tele monitor (5) Alzheimer's dementia Assessment & Plan: continue supportive care (6) Abrasion or friction burn of groin with infection Assessment & Plan: continue cefepime and add vancomycin empirically , continue local wound care as per hospital protocol Subjective Allergies: Coded Allergies: PENICILLINS (Verified Allergy, Severe, Rash, 01/31/16) Swelling Redness Rash Objective Vital Signs Last 24 Hour Vital Signs Date Time Temp Pulse Resp B/P (MAP) Pulse Ox O2 Delivery O2 Flow Rate FiO2 09/25/17 12:00 84 09/25/17 11:54 98.2 92 18 149/65 94 Nasal Cannula 2.0 98.2 09/25/17 08:00 97.4 87 18 140/66 94 Nasal Cannula 2.0 97.4 09/25/17 08:00 83 09/25/17 04:00 98.0 88 17 152/68 96 Nasal Cannula 2.0 98.0 09/25/17 04:00 82 09/25/17 00:00 97.4 99 22 120/69 97 Nasal Cannula 2.0 97.4 09/25/17 00:00 94 09/24/17 22:40 98.6 98 18 126/68 97 Nasal Cannula 2.0 98.6 09/24/17 22:30 98.6 98 18 126/68 97 Nasal Cannula 2.0 98.6 09/24/17 21:30 98.9 100 18 141/71 98 Nasal Cannula 2.0 98.9 09/24/17 20:30 98.5 95 18 136/65 99 Nasal Cannula 2.0 98.5 09/24/17 19:30 97.9 98 20 144/56 97 Nasal Cannula 2.0 97.9 09/24/17 19:02 97.8 108 18 101/56 99 Nasal Cannula 2.0 97.9 Height (Feet): 5 Height (Inches): 1.00 Weight (Pounds): 149 Laboratory Tests Test 09/24/17 19:30 09/24/17 21:20 09/25/17 06:15 White Blood Count 12.7 K/UL (4.8-10.8) H 9.4 K/UL (4.8-10.8) Red Blood Count 5.12 M/UL (4.20-5.40) 4.35 M/UL (4.20-5.40) Hemoglobin 15.5 G/DL (12.0-16.0) 13.3 G/DL (12.0-16.0) Hematocrit 48.9 % (37.0-47.0) H 42.2 % (37.0-47.0) Mean Corpuscular Volume 95 FL (80-99) 97 FL (80-99) Mean Corpuscular Hemoglobin 30.2 PG (27.0-31.0) 30.6 PG (27.0-31.0) Mean Corpuscular Hemoglobin Concent 31.7 G/DL (32.0-36.0) L 31.6 G/DL (32.0-36.0) L Red Cell Distribution Width 13.6 % (11.6-14.8) 13.7 % (11.6-14.8) Platelet Count 231 K/UL (150-450) 180 K/UL (150-450) Mean Platelet Volume 6.7 FL (6.5-10.1) 6.7 FL (6.5-10.1) Neutrophils (%) (Auto) 70.1 % (45.0-75.0) 71.6 % (45.0-75.0) Lymphocytes (%) (Auto) 22.0 % (20.0-45.0) 19.9 % (20.0-45.0) L Monocytes (%) (Auto) 6.4 % (1.0-10.0) 5.4 % (1.0-10.0) Eosinophils (%) (Auto) 0.8 % (0.0-3.0) 2.5 % (0.0-3.0) Basophils (%) (Auto) 0.7 % (0.0-2.0) 0.6 % (0.0-2.0) Urine Color Yellow Urine Appearance Slightly cloudy Urine pH 5 (4.5-8.0) Urine Specific [place] 1.015 (1.005-1.035) Urine Protein 2+ (NEGATIVE) H Urine Glucose (UA) 3+ (NEGATIVE) H Urine Ketones Negative (NEGATIVE) Urine Occult Blood 4+ (NEGATIVE) H Urine Nitrite Positive (NEGATIVE) H Urine Bilirubin Negative (NEGATIVE) Urine Urobilinogen 1 MG/DL (0.0-1.0) H Urine Leukocyte Esterase 3+ (NEGATIVE) H Urine RBC 5-10 /HPF (0 - 2) H Urine WBC 20-30 /HPF (0 - 2) H Urine Squamous Epithelial Cells Occasional /LPF Urine Amorphous Sediment Few /LPF (NONE) H Urine Bacteria Moderate /HPF (NONE) H Sodium Level 163 MMOL/L (136-145) *H 164 MMOL/L (136-145) *H Potassium Level 3.6 MMOL/L (3.5-5.1) 3.3 MMOL/L (3.5-5.1) L Chloride Level 122 MMOL/L (98-107) H 128 MMOL/L (98-107) H Carbon Dioxide Level 27 MMOL/L (21-32) 25 MMOL/L (21-32) Anion Gap 13 mmol/L (5-15) 11 mmol/L (5-15) Blood Urea Nitrogen 30 mg/dL (7-18) H 25 mg/dL (7-18) H Creatinine 1.9 MG/DL (0.55-1.30) H 1.3 MG/DL (0.55-1.30) Estimat Glomerular Filtration Rate mL/min (>60) mL/min (>60) Glucose Level 393 MG/DL (74-106) H 273 MG/DL (74-106) #H Lactic Acid Level 2.90 mmol/L (0.66-2.22) H 3.50 mmol/L (0.66-2.22) H 1.70 mmol/L (0.66-2.22) Calcium Level 9.2 MG/DL (8.5-10.1) 8.0 MG/DL (8.5-10.1) L Total Bilirubin 0.5 MG/DL (0.2-1.0) 0.6 MG/DL (0.2-1.0) Aspartate Amino Transf (AST/SGOT) 19 U/L (15-37) 18 U/L (15-37) Alanine Aminotransferase (ALT/SGPT) 25 U/L (12-78) 23 U/L (12-78) Alkaline Phosphatase 119 U/L (46-116) H 107 U/L (46-116) Total Creatine Kinase 222 U/L (26-308) Creatine Kinase MB 2.8 NG/ML (0.0-3.6) Creatine Kinase MB Relative Index 1.2 Troponin I 0.009 ng/mL (0.000-0.056) 0.015 ng/mL (0.000-0.056) Total Protein 7.7 G/DL (6.4-8.2) 6.1 G/DL (6.4-8.2) L Albumin 3.1 G/DL (3.4-5.0) L 2.6 G/DL (3.4-5.0) L Globulin 4.6 g/dL 3.5 g/dL Albumin/Globulin Ratio 0.7 (1.0-2.7) L 0.7 (1.0-2.7) L Hemoglobin A1c 8.4 % (4.3-6.0) H Uric Acid 6.2 MG/DL (2.6-7.2) Phosphorus Level 3.4 MG/DL (2.5-4.9) Magnesium Level 2.4 MG/DL (1.8-2.4) Gamma Glutamyl Transpeptidase 44 U/L (5-85) Pro-B-Type Natriuretic Peptide 273 pg/mL (0-125) H Triglycerides Level 151 MG/DL (30-150) H Cholesterol Level 125 MG/DL (< 200) LDL Cholesterol 72 mg/dL (<100) HDL Cholesterol 32 MG/DL (40-60) L Cholesterol/HDL Ratio 3.9 (3.3-4.4) Thyroid Stimulating Hormone (TSH) 1.548 uiU/mL (0.358-3.740) Current Medications Medications (Trade) Dose Ordered Sig/Олег Route PRN Reason Start Time Stop Time Status Last Admin Dose Admin Acetaminophen (Tylenol) 500 mg Q4H PRN ORAL Mild Pain/Temp > 100.5 09/24/17 23:00 10/24/17 22:59 Cefepime HCl 500 mg/Dextrose 55 ml @ 110 mls/hr Q24H IV 09/25/17 19:00 10/02/17 18:59 Clonidine HCl (Catapres Tab) 0.1 mg Q4H PRN ORAL bp over 165 syst 09/24/17 23:00 10/24/17 22:59 Dextrose 1,000 ml @ 100 mls/hr Q10H IV 09/25/17 08:15 10/25/17 08:14 09/25/17 08:58 Dextrose (Dextrose 50%) 25 ml STAT PRN IV Hypoglycemia 09/25/17 10:00 10/25/17 09:59 Dextrose (Dextrose 50%) 50 ml STAT PRN IV Hypoglycemia 09/25/17 10:00 10/25/17 09:59 Heparin Sodium (Porcine) (Heparin 5000 units/ml) 5,000 units EVERY 12 HOURS SUBQ 09/25/17 09:00 10/25/17 08:59 09/25/17 08:59 Insulin Aspart (NovoLOG) BEFORE MEALS AND HS SUBQ 09/25/17 11:30 10/25/17 11:29 09/25/17 11:49 Ondansetron HCl (Zofran) 4 mg Q6H PRN IVP Nausea & Vomiting 09/24/17 23:00 10/24/17 22:59 Pantoprazole (Protonix) 40 mg DAILY IVP 09/24/17 22:45 10/24/17 22:44 09/25/17 08:57 Alicja Webster M.D. September 25, 2017 13:54
[2017-09-25] MEDS ORDERED: Vancomycin 1250mg/D5W 250ml IVPB ONE (15:30)
[2017-09-25 16:00] VITALS: BP 103/59
--- NOTE | 2017-09-25 16:38 | Cardiology Report ---
APPROVED REPORT EKG Measurement Heart [id number] Sinus tachycardia Abnormal ECG
--- NOTE | 2017-09-25 17:30 | Consultation ---
DATE OF CONSULTATION: 09/25/2017 INFECTIOUS DISEASE CONSULTATION CONSULTING PHYSICIAN: Alicja Webster M.D. REQUESTING PHYSICIAN: Delon Sanchez M.D. REASON FOR CONSULTATION: Recurrent urinary tract infection with sepsis. Recommendation for antibiotics treatment. HISTORY OF PRESENT ILLNESS: The patient is an 87-year-old female with past medical history of pneumonia, coronary artery disease, gastroesophageal reflux disease, dementia, Alzheimer, and urinary tract infection in the past, [facility] emergency room for decreased alertness. The patient is usually alert at the baseline, but confused with dementia. For the last couple of days, she has been less active and sleeping more often. The patient was noticed to have dark cloudy urine in the jail facility, so she was sent to the hospital for evaluation. In the emergency room, her urinalysis showed strong evidence of infection. She also has leukocytosis on her white count, so the patient was started on cefepime empiric coverage. Blood culture and urine culture were obtained and Infectious Disease consultation was requested for further evaluation and management. As of note, the patient is altered, unresponsive, and cannot provide any history at this point. History was mainly obtained from the medical record and the power of trauma coordinator, who was at the bedside. PAST MEDICAL HISTORY: Significant for hypertension, coronary artery disease, GERD, CVA, dementia, and recurrent UTI. MEDICATIONS: Currently, she is on cefepime. For the rest of her medications, please refer to MAR. ALLERGIES: She is allergic to penicillin with swelling, redness, and rash. SOCIAL HISTORY: The patient lives at [facility]. No recent drugs, tobacco, or alcohol. FAMILY HISTORY: Unable to obtain. REVIEW OF SYSTEMS: Unable to obtain at this point. The patient is poor historian and cannot provide any history. PHYSICAL EXAMINATION: VITAL SIGNS: Temperature 98.2, pulse 92, respiration 18, blood pressure 149/65, and saturation 94% on two liters nasal cannula. GENERAL: An elderly female, lying in bed, altered, unresponsive, snoring, and not in acute distress. HEENT: Normocephalic and atraumatic. Pupils are reactive to light. Moist oral mucosa. No exudate. NECK: Supple. No lymphadenopathy. CARDIOVASCULAR: She is tachycardic. S1 and S2 normal. No murmur or gallop. LUNGS: Clear bilaterally. Diminished breathing sounds at the bases. No wheezing or rhonchi. ABDOMEN: Soft, obese, nontender, and nondistended. Normal bowel sounds. No hepatosplenomegaly. No ascites. EXTREMITIES: No edema. No cyanosis. Right foot lateral skin wound with redness. Mild cellulitis. SKIN: She had extensive redness and exfoliation of the skin in the inguinal area and inner thighs. LABORATORY DATA: Labs showed white count of 12.7, hemoglobin of 15.5, and platelet count of 231,000. BUN of 25 and creatinine of 1.3. Urinalysis showed positive nitrite, +3 leukocyte esterase, wbc 20 to 30, and moderate amount of bacteria. MICROBIOLOGY: Her urine culture in June 2017 grew Proteus mirabilis, resistant to quinolone. IMAGING: Chest x-ray showed no acute process. ASSESSMENT AND RECOMMENDATION: 1. Urinary tract infection, recurrent. Continue cefepime empiric coverage pending urine culture results. The patient may benefit from prophylactic antibiotics in the future. 2. Sepsis due to the above. The patient is already on cefepime empiric coverage pending blood culture. We will add vancomycin empiric coverage pending blood culture results. 3. Diabetes type 2, poorly controlled. Recommend tight glycemic control to keep blood glucose between 100 to 140. 4. Right foot skin wound with cellulitis and inner thigh skin break with cellulitis. The patient is already on cefepime and we will add vancomycin. 5. Alzheimer dementia. Continue supportive care. 6. Acute encephalopathy due to the above. Continue neuro check and tele monitor. Primary team is following. Thank you for the consult. ID will continue to follow. Alicja Webster M.D. DR: JOSIAS JOB#: [id number] CC:
[2017-09-25] MEDS: Cefepime HCl 500 MG in D5W 55 ML IV SCH (18:33)
[2017-09-25 20:00] VITALS: BP 144/93
[2017-09-25] MEDS ORDERED: 1/2 NS 1000ml IV ONE (22:24)
--- NOTE | 2017-09-25 23:00 | History and Physical Report ---
DATE OF ADMISSION: 09/24/2017 HISTORY OF PRESENT ILLNESS: The patient is an 87-year-old female, a resident of [facility] with multiple medical problems. The patient reported to be less interactive and more sleepy and lethargic for the past few days. She was brought into emergency room. After initial evaluation in the emergency room by the ER physician, diagnoses of sepsis and pyelonephritis were made. The patient also was found to be dehydrated with hypernatremia with high lactic acid and hyperglycemia and is being admitted for further management. PAST MEDICAL HISTORY: Significant for diabetes mellitus, hypertension, dementia, urinary incontinence, previous urinary tract infection and pneumonia. The patient is aspiration prone. PHYSICAL EXAMINATION: GENERAL: The patient is lethargic and arousable. Heart rate is regular at 84. VITAL SIGNS: Today, blood pressure 140/66, temperature 97.4 degrees, and pulse rate 87. HEENT: Head is normocephalic. Sclerae are not icteric. NECK: Rigid to all directions. LUNGS: Poor inspiratory effort. Decreased breath sounds over the bases. HEART: Mainly regular with occasional irregular beats, rate 87. ABDOMEN: Slightly distended. Soft. EXTREMITIES: Lower extremities, no edema. There is a Ambrose catheter in place. LABORATORY RESULTS: Initial white blood cells 12.7 and hemoglobin 15.5. Sodium 163, BUN 30, and creatinine 1.9. Albumin 3.1. Urine, 3+ leukocyte esterase and 30 white blood cells. IMPRESSION: Acute encephalopathy secondary to underlying infection, urinary tract infection, and pyelonephritis with high lactate level. Other conditions of dementia and diabetes mellitus. PLAN: Keep NPO, as the patient is aspiration prone. D5W with sliding-scale insulin. Monitor renal parameters. Panculture and antibiotics. According to how the patient's condition evolves, we will make the proper changes in our future management. Delon Sanchez M.D. DR: CHERELLE JOB#: [id number] CC:
[2017-09-26] VITALS: BP 145/59
[2017-09-26 04:00] VITALS: BP 141/55
[2017-09-26] MEDS: NovoLOG Insulin Flexpen SUBQ SCH ×5 (06:12→21:10)
[2017-09-26 07:57] VITALS: BP 122/90
[2017-09-26] MEDS: Pantoprazole Inj IVP SCH (08:26)
[2017-09-26] MEDS: Heparin 5000 units/ml inj SUBQ SCH ×2 (08:27→21:09)
[2017-09-26 08:32] LABS: BASOPHILS % (AUTO) 0.6 % (0.0-2.0); EOSINOPHILS % (AUTO) 2.7 % (0.0-3.0); HEMATOCRIT 38.1 % (37.0-47.0); HEMOGLOBIN 12.3 G/DL (12.0-16.0); LYMPHOCYTES % (AUTO) 22.1 % (20.0-45.0); MEAN CORPUSCULAR VOLUME 96 FL (80-99); MONOCYTES % (AUTO) 4.1 % (1.0-10.0); NEUTROPHILS % (AUTO) 70.5 % (45.0-75.0); PLATELET COUNT 148 K/UL (150-450); RED BLOOD COUNT 3.98 M/UL (4.20-5.40); RED CELL DISTRIBUTION WIDTH 13.1 % (11.6-14.8); WHITE BLOOD COUNT 8.8 K/UL (4.8-10.8)
[2017-09-26 08:52] LABS: ALANINE AMINOTRANSFERASE 14 U/L (12-78); ALBUMIN/GLOBULIN RATIO 0.6 (1.0-2.7); ALKALINE PHOSPHATASE 96 U/L (46-116); ANION GAP 9 mmol/L (5-15); ASPARTATE AMINO TRANSFERASE 14 U/L (15-37); BILIRUBIN,TOTAL 0.6 MG/DL (0.2-1.0); BLOOD UREA NITROGEN 13 mg/dL (7-18); CALCIUM 8.2 MG/DL (8.5-10.1); CARBON DIOXIDE 26 MMOL/L (21-32); CHLORIDE 116 MMOL/L (98-107); CREATININE 1.2 MG/DL (0.55-1.30); SODIUM 151 MMOL/L (136-145)
[2017-09-26 12:00] VITALS: BP 123/63
[2017-09-26] MEDS ORDERED: Vancomycin 750mg/NS 250ml IVPB SCH (14:15)
--- NOTE | 2017-09-26 14:55 | Infectious Diseases Prog Note ---
Assessment/Plan Problems: (1) UTI (urinary tract infection) Assessment & Plan: recurrent , with gram negative rods , continue cefepime pending urine culture results (2) Sepsis Assessment & Plan: due to the above, on cefepime empirically, pending blood culture (3) Diabetes type 2, uncontrolled Assessment & Plan: recommend tight glycemic control to keep blood glucose between 100-140 (4) Acute encephalopathy Assessment & Plan: due to the above, continue neuro check and tele monitor (5) Alzheimer's dementia Assessment & Plan: continue supportive care (6) Abrasion or friction burn of groin with infection Assessment & Plan: continue cefepime and add vancomycin empirically , continue local wound care as per hospital protocol Subjective Constitutional: Reports: no symptoms HEENT: Reports: no symptoms Respiratory: Reports: no symptoms Cardiovascular: Reports: no symptoms Gastrointestinal/Abdominal: Reports: no symptoms Genitourinary: Reports: no symptoms Neurologic: Reports: no symptoms Psychiatric: Reports: no symptoms Skin: Reports: no symptoms Endocrine: Reports: no symptoms Hematologic: Reports: no symptoms Musculoskeletal: Reports: no symptoms Allergies: Coded Allergies: PENICILLINS (Verified Allergy, Severe, Rash, 01/31/16) Swelling Redness Rash Subjective she was more awake and alert, and comfortable, setting in bed , POA at bedside Objective Vital Signs Last 24 Hour Vital Signs Date Time Temp Pulse Resp B/P (MAP) Pulse Ox O2 Delivery O2 Flow Rate FiO2 09/26/17 12:00 75 09/26/17 12:00 96.9 82 18 123/63 96 Nasal Cannula 2.0 96.9 09/26/17 08:00 81 09/26/17 07:57 97.3 70 18 122/90 98 Nasal Cannula 2.0 97.3 09/26/17 04:00 97.7 81 20 141/55 97 Nasal Cannula 2.0 97.7 09/26/17 04:00 83 09/26/17 00:00 97.0 89 21 145/59 96 Nasal Cannula 2.0 97.0 09/26/17 00:00 88 09/25/17 20:00 97.0 84 21 144/93 98 Nasal Cannula 2.0 97.0 09/25/17 20:00 90 09/25/17 16:00 88 09/25/17 16:00 98.4 85 20 103/59 95 Nasal Cannula 2.0 98.4 Height (Feet): 5 Height (Inches): 1.00 Weight (Pounds): 149 General Appearance: WD/WN, no acute distress HEENT: normocephalic, atraumatic, anicteric, mucous membranes moist, PERRL Respiratory/Chest: chest wall non-tender, lungs clear, normal breath sounds, no respiratory distress, no accessory muscle use Cardiovascular: normal peripheral pulses, normal rate, regular rhythm, regularly irregular, no gallop/murmur, no JVD Abdomen: normal bowel sounds, soft, non tender, no organomegaly, non distended , no mass, no scars Extremities: no cyanosis, no clubbing Skin: no rash, no lesions Neurologic/Psychiatric: alert, responsive Lymphatic: no neck adenopathy, no groin adenopathy Microbiology Date/Time Source Procedure Growth Status 09/24/17 19:45 Blood Blood Culture - Preliminary NO GROWTH AFTER 24 HOURS Resulted 09/24/17 19:30 Blood Blood Culture - Preliminary NO GROWTH AFTER 24 HOURS Resulted 09/24/17 19:30 Urine,Clean Catch Urine Culture - Preliminary Gram Negative Bacillus 1 Resulted Laboratory Tests Test 09/26/17 08:10 White Blood Count 8.8 K/UL (4.8-10.8) Red Blood Count 3.98 M/UL (4.20-5.40) L Hemoglobin 12.3 G/DL (12.0-16.0) Hematocrit 38.1 % (37.0-47.0) Mean Corpuscular Volume 96 FL (80-99) Mean Corpuscular Hemoglobin 30.8 PG (27.0-31.0) Mean Corpuscular Hemoglobin Concent 32.2 G/DL (32.0-36.0) Red Cell Distribution Width 13.1 % (11.6-14.8) Platelet Count 148 K/UL (150-450) L Mean Platelet Volume 7.2 FL (6.5-10.1) Neutrophils (%) (Auto) 70.5 % (45.0-75.0) Lymphocytes (%) (Auto) 22.1 % (20.0-45.0) Monocytes (%) (Auto) 4.1 % (1.0-10.0) Eosinophils (%) (Auto) 2.7 % (0.0-3.0) Basophils (%) (Auto) 0.6 % (0.0-2.0) Sodium Level 151 MMOL/L (136-145) H Potassium Level 3.0 MMOL/L (3.5-5.1) L Chloride Level 116 MMOL/L (98-107) H Carbon Dioxide Level 26 MMOL/L (21-32) Anion Gap 9 mmol/L (5-15) Blood Urea Nitrogen 13 mg/dL (7-18) Creatinine 1.2 MG/DL (0.55-1.30) Estimat Glomerular Filtration Rate mL/min (>60) Glucose Level 345 MG/DL (74-106) H Uric Acid 5.5 MG/DL (2.6-7.2) Calcium Level 8.2 MG/DL (8.5-10.1) L Phosphorus Level 3.0 MG/DL (2.5-4.9) Magnesium Level 1.9 MG/DL (1.8-2.4) Total Bilirubin 0.6 MG/DL (0.2-1.0) Aspartate Amino Transf (AST/SGOT) 14 U/L (15-37) L Alanine Aminotransferase (ALT/SGPT) 14 U/L (12-78) Alkaline Phosphatase 96 U/L (46-116) C-Reactive Protein, Quantitative 5.7 mg/dL (0.00-0.90) H Pro-B-Type Natriuretic Peptide 832 pg/mL (0-125) H Total Protein 5.6 G/DL (6.4-8.2) L Albumin 2.0 G/DL (3.4-5.0) L Globulin 3.6 g/dL Albumin/Globulin Ratio 0.6 (1.0-2.7) L Current Medications Medications (Trade) Dose Ordered Sig/Олег Route PRN Reason Start Time Stop Time Status Last Admin Dose Admin Acetaminophen (Tylenol) 500 mg Q4H PRN ORAL Mild Pain/Temp > 100.5 09/24/17 23:00 10/24/17 22:59 Cefepime HCl 500 mg/Dextrose 55 ml @ 110 mls/hr Q24H IV 09/25/17 19:00 10/02/17 18:59 09/25/17 18:33 Clonidine HCl (Catapres Tab) 0.1 mg Q4H PRN ORAL bp over 165 syst 09/24/17 23:00 10/24/17 22:59 Dextrose 1,000 ml @ 100 mls/hr Q10H IV 09/25/17 08:15 10/25/17 08:14 09/26/17 14:09 Dextrose (Dextrose 50%) 25 ml STAT PRN IV Hypoglycemia 09/25/17 10:00 10/25/17 09:59 Dextrose (Dextrose 50%) 50 ml STAT PRN IV Hypoglycemia 09/25/17 10:00 10/25/17 09:59 Heparin Sodium (Porcine) (Heparin 5000 units/ml) 5,000 units EVERY 12 HOURS SUBQ 09/25/17 09:00 10/25/17 08:59 09/26/17 08:27 Insulin Aspart (NovoLOG) BEFORE MEALS AND HS SUBQ 09/25/17 11:30 10/25/17 11:29 09/26/17 11:32 Ondansetron HCl (Zofran) 4 mg Q6H PRN IVP Nausea & Vomiting 09/24/17 23:00 10/24/17 22:59 Pantoprazole (Protonix) 40 mg DAILY IVP 09/24/17 22:45 10/24/17 22:44 09/26/17 08:26 Potassium Chloride 100 ml @ 100 mls/hr Q1H IVPB 09/26/17 12:30 09/26/17 16:29 09/26/17 13:37 Vancomycin HCl (Vanco rx to dose) 1 ea DAILY PRN MISC Per rx protocol 09/25/17 14:00 10/25/17 13:59 Vancomycin/Sodium Chloride 250 ml @ 166.667 mls/hr Q24H IVPB 09/26/17 15:00 10/01/17 14:59 Alicja Webster M.D. September 26, 2017 14:55
[2017-09-26] MEDS: Vancomycin 750mg/NS 250ml IVPB SCH (15:57)
[2017-09-26 16:00] VITALS: BP 103/54
--- NOTE | 2017-09-26 16:08 | General Progress Note ---
Assessment/Plan Problem List: (1) Sepsis ICD Codes: A41.9 - Sepsis, unspecified organism SNOMED: 42550237 (2) Pyelonephritis ICD Codes: N12 - Tubulo-interstitial nephritis, not specified as acute or chronic SNOMED: 70492268 (3) Diabetes type 2, uncontrolled ICD Codes: E11.65 - Type 2 diabetes mellitus with hyperglycemia SNOMED: 175131565 (4) At high risk for aspiration ICD Codes: Z91.89 - Other specified personal risk factors, not elsewhere classified SNOMED: 473526597 (5) Hypernatremia ICD Codes: E87.0 - Hyperosmolality and hypernatremia SNOMED: 87960877 (6) UTI (urinary tract infection) ICD Codes: N39.0 - Urinary tract infection, site not specified SNOMED: 84932115 Status: stable Status Narrative encephalopathy pyelo UTI sepsis Dementia DM Assessment/Plan hydrate- K supplement St eval start po antibiotics Subjective ROS Limited/Unobtainable: No Constitutional: Reports: malaise Allergies: Coded Allergies: PENICILLINS (Verified Allergy, Severe, Rash, 01/31/16) Swelling Redness Rash Objective Last 24 Hour Vital Signs Date Time Temp Pulse Resp B/P (MAP) Pulse Ox O2 Delivery O2 Flow Rate FiO2 09/26/17 16:00 96.6 85 18 103/54 94 Nasal Cannula 96.6 09/26/17 12:00 75 09/26/17 12:00 96.9 82 18 123/63 96 Nasal Cannula 2.0 96.9 09/26/17 08:00 81 09/26/17 07:57 97.3 70 18 122/90 98 Nasal Cannula 2.0 97.3 09/26/17 04:00 97.7 81 20 141/55 97 Nasal Cannula 2.0 97.7 09/26/17 04:00 83 09/26/17 00:00 97.0 89 21 145/59 96 Nasal Cannula 2.0 97.0 09/26/17 00:00 88 09/25/17 20:00 97.0 84 21 144/93 98 Nasal Cannula 2.0 97.0 09/25/17 20:00 90 Intake and Output 09/25/17 09/26/17 19:00 07:00 Intake Total 1200 ml 1255 ml Output Total 550 ml 600 ml Balance 650 ml 655 ml IV Total 1200 ml 1255 ml Output Urine Total 550 ml 600 ml # Bowel Movements 1 Laboratory Tests 09/26/17 08:10: White Blood Count 8.8, Red Blood Count 3.98L, Hemoglobin 12.3, Hematocrit 38.1, Mean Corpuscular Volume 96, Mean Corpuscular Hemoglobin 30.8, Mean Corpuscular Hemoglobin Concent 32.2, Red Cell Distribution Width 13.1, Platelet Count 148L, Mean Platelet Volume 7.2, Neutrophils (%) (Auto) 70.5, Lymphocytes (%) (Auto) 22.1, Monocytes (%) (Auto) 4.1, Eosinophils (%) (Auto) 2.7, Basophils (%) (Auto ) 0.6, Sodium Level 151H, Potassium Level 3.0L, Chloride Level 116H, Carbon Dioxide Level 26, Anion Gap 9, Blood Urea Nitrogen 13, Creatinine 1.2, Estimat Glomerular Filtration Rate , Glucose Level 345H, Uric Acid 5.5, Calcium Level 8.2L, Phosphorus Level 3.0, Magnesium Level 1.9, Total Bilirubin 0.6, Aspartate Amino Transf (AST/SGOT) 14L, Alanine Aminotransferase (ALT/SGPT) 14, Alkaline Phosphatase 96, C-Reactive Protein, Quantitative 5.7H, Pro-B-Type Natriuretic Peptide 832H, Total Protein 5.6L, Albumin 2.0L, Globulin 3.6, Albumin/Globulin Ratio 0.6L Height (Feet): 5 Height (Inches): 1.00 Weight (Pounds): 149 General Appearance: no apparent distress, lethargic Cardiovascular: normal rate Respiratory/Chest: decreased breath sounds Abdomen: distended Objective no change BARRY SMITH September 26, 2017 16:08
[2017-09-26] MEDS: Cefepime HCl 500 MG in D5W 55 ML IV SCH (18:35)
[2017-09-26 20:00] VITALS: BP 129/66
[2017-09-27] VITALS: BP 143/57
[2017-09-27 04:00] VITALS: BP 148/75
[2017-09-27 05:42] LABS: EOSINOPHILS % (AUTO) 4.8 % (0.0-3.0); HEMATOCRIT 44.2 % (37.0-47.0); HEMOGLOBIN 14.6 G/DL (12.0-16.0); LYMPHOCYTES % (AUTO) 33.7 % (20.0-45.0); MEAN CORPUSCULAR VOLUME 95 FL (80-99); MONOCYTES % (AUTO) 4.5 % (1.0-10.0); PLATELET COUNT 112 K/UL (150-450); RED BLOOD COUNT 4.68 M/UL (4.20-5.40); RED CELL DISTRIBUTION WIDTH 12.8 % (11.6-14.8); WHITE BLOOD COUNT 7.5 K/UL (4.8-10.8)
[2017-09-27 06:03] LABS: ALANINE AMINOTRANSFERASE 13 U/L (12-78); ALBUMIN 2.3 G/DL (3.4-5.0); ALBUMIN/GLOBULIN RATIO 0.5 (1.0-2.7); ALKALINE PHOSPHATASE 109 U/L (46-116); ANION GAP 12 mmol/L (5-15); ASPARTATE AMINO TRANSFERASE 15 U/L (15-37); BILIRUBIN,TOTAL 0.5 MG/DL (0.2-1.0); BLOOD UREA NITROGEN 9 mg/dL (7-18); CALCIUM 8.6 MG/DL (8.5-10.1); CARBON DIOXIDE 22 MMOL/L (21-32); CHLORIDE 113 MMOL/L (98-107); CREATININE 1.2 MG/DL (0.55-1.30); PHOSPHORUS 3.2 MG/DL (2.5-4.9); POTASSIUM 3.4 MMOL/L (3.5-5.1); SODIUM 147 MMOL/L (136-145)
[2017-09-27] MEDS: NovoLOG Insulin Flexpen SUBQ SCH ×4 (06:31→20:35)
[2017-09-27 08:00] VITALS: BP 153/90
[2017-09-27] MEDS: Nateglinide 60mg tab ORAL SCH ×2 (08:53→11:50)
[2017-09-27] MEDS: Heparin 5000 units/ml inj SUBQ SCH ×2 (09:00→20:36)
[2017-09-27] MEDS ORDERED: Tubing IV Secondary IV ONE (09:52)
[2017-09-27 12:00] VITALS: BP 150/77
--- NOTE | 2017-09-27 15:11 | General Progress Note ---
Assessment/Plan Problem List: (1) Sepsis ICD Codes: A41.9 - Sepsis, unspecified organism SNOMED: 18909228 (2) Pyelonephritis ICD Codes: N12 - Tubulo-interstitial nephritis, not specified as acute or chronic SNOMED: 37609613 (3) Diabetes type 2, uncontrolled ICD Codes: E11.65 - Type 2 diabetes mellitus with hyperglycemia SNOMED: 337959745 (4) At high risk for aspiration ICD Codes: Z91.89 - Other specified personal risk factors, not elsewhere classified SNOMED: 710604492 (5) Hypernatremia ICD Codes: E87.0 - Hyperosmolality and hypernatremia SNOMED: 67591035 (6) UTI (urinary tract infection) ICD Codes: N39.0 - Urinary tract infection, site not specified SNOMED: 67697991 Assessment/Plan hydrate- K supplement St eval start po antibiotics to med surg DC in am Subjective ROS Limited/Unobtainable: No Constitutional: Reports: malaise Allergies: Coded Allergies: PENICILLINS (Verified Allergy, Severe, Rash, 01/31/16) Swelling Redness Rash Objective Last 24 Hour Vital Signs Date Time Temp Pulse Resp B/P (MAP) Pulse Ox O2 Delivery O2 Flow Rate FiO2 09/27/17 12:00 97.7 76 20 150/77 95 Nasal Cannula 97.7 09/27/17 12:00 73 09/27/17 08:00 98.2 81 20 153/90 95 Nasal Cannula 98.2 09/27/17 08:00 76 09/27/17 04:00 68 09/27/17 04:00 98.1 67 20 148/75 99 Nasal Cannula 98.1 09/27/17 00:00 97.5 79 20 143/57 96 Nasal Cannula 97.5 09/27/17 00:00 69 09/26/17 20:00 98.0 82 20 129/66 98 Nasal Cannula 98.0 09/26/17 20:00 83 09/26/17 16:00 81 09/26/17 16:00 96.6 85 18 103/54 94 Nasal Cannula 96.6 Intake and Output 09/26/17 09/27/17 19:00 07:00 Intake Total 2083.334 ml 710 ml Output Total 450 ml 1000 ml Balance 1633.334 ml -290 ml Intake Oral 300 ml IV Total 1783.334 ml 710 ml Output Urine Total 450 ml 1000 ml # Bowel Movements 3 Laboratory Tests 09/27/17 05:10: White Blood Count 7.5, Red Blood Count 4.68, Hemoglobin 14.6, Hematocrit 44.2, Mean Corpuscular Volume 95, Mean Corpuscular Hemoglobin 31.2H, Mean Corpuscular Hemoglobin Concent 33.0, Red Cell Distribution Width 12.8, Platelet Count 112L, Mean Platelet Volume 7.8, Neutrophils (%) (Auto) 56.0, Lymphocytes (%) (Auto) 33.7, Monocytes (%) (Auto) 4.5, Eosinophils (%) (Auto) 4.8H, Basophils (%) (Auto ) 1.0, Sodium Level 147H, Potassium Level 3.4L, Chloride Level 113H, Carbon Dioxide Level 22, Anion Gap 12, Blood Urea Nitrogen 9, Creatinine 1.2, Estimat Glomerular Filtration Rate , Glucose Level 223#H, Calcium Level 8.6, Phosphorus Level 3.2, Magnesium Level 1.9, Total Bilirubin 0.5, Aspartate Amino Transf (AST /SGOT) 15, Alanine Aminotransferase (ALT/SGPT) 13, Alkaline Phosphatase 109, C- Reactive Protein, Quantitative 5.9H, Pro-B-Type Natriuretic Peptide 844H, Total Protein 6.5, Albumin 2.3L, Globulin 4.2, Albumin/Globulin Ratio 0.5L Height (Feet): 5 Height (Inches): 1.00 Weight (Pounds): 149 General Appearance: no apparent distress Objective no change BARRY SMITH September 27, 2017 15:11
[2017-09-27] MEDS: Vancomycin 750mg/NS 250ml IVPB SCH (15:15)
[2017-09-27 16:00] VITALS: BP 159/76
[2017-09-27] MEDS ORDERED: Acetaminophen 500mg (ES) tab ORAL PRN (16:59)
[2017-09-27] MEDS: Benazepril 10mg tab ORAL SCH (17:28)
[2017-09-27] MEDS: cefTRIAXone 1 GM in D5W 55 ML IVPB SCH (17:28)
[2017-09-27] MEDS ORDERED: Nateglinide 60mg tab ORAL SCH (17:30)
[2017-09-27] MEDS ORDERED: cefTRIAXone 1 GM in D5W 55 ML IVPB SCH (18:00)
[2017-09-27] MEDS ORDERED: Benazepril 10mg tab ORAL SCH (18:00)
[2017-09-27 20:00] VITALS: BP 147/71
[2017-09-27] MEDS: Donepezil 10mg tab ORAL SCH (20:37)
[2017-09-27] MEDS ORDERED: Donepezil 10mg tab ORAL SCH (21:00)
[2017-09-28] VITALS: BP 136/74
[2017-09-28 04:00] VITALS: BP 137/78
[2017-09-28] MEDS: Nateglinide 60mg tab ORAL SCH ×3 (05:54→16:33)
[2017-09-28] MEDS: NovoLOG Insulin Flexpen SUBQ SCH ×4 (05:55→21:14)
[2017-09-28 08:00] VITALS: BP 143/75
[2017-09-28] MEDS: Heparin 5000 units/ml inj SUBQ SCH ×2 (08:31→21:00)
[2017-09-28] MEDS: Benazepril 10mg tab ORAL SCH ×2 (08:31→18:28)
[2017-09-28 12:00] VITALS: BP 144/71
--- NOTE | 2017-09-28 12:40 | General Progress Note ---
Assessment/Plan Problem List: (1) Sepsis ICD Codes: A41.9 - Sepsis, unspecified organism SNOMED: 97526197 (2) Pyelonephritis ICD Codes: N12 - Tubulo-interstitial nephritis, not specified as acute or chronic SNOMED: 00022173 (3) Diabetes type 2, uncontrolled ICD Codes: E11.65 - Type 2 diabetes mellitus with hyperglycemia SNOMED: 291132225 (4) At high risk for aspiration ICD Codes: Z91.89 - Other specified personal risk factors, not elsewhere classified SNOMED: 210422777 (5) Hypernatremia ICD Codes: E87.0 - Hyperosmolality and hypernatremia SNOMED: 76848252 (6) UTI (urinary tract infection) ICD Codes: N39.0 - Urinary tract infection, site not specified SNOMED: 81291925 Status: stable Assessment/Plan hydrate- K supplement St eval start po antibiotics to med surg DC in am will discuss with ID Subjective ROS Limited/Unobtainable: No Constitutional: Reports: other - much responsive and alert Allergies: Coded Allergies: PENICILLINS (Verified Allergy, Severe, Rash, 01/31/16) Swelling Redness Rash Objective Last 24 Hour Vital Signs Date Time Temp Pulse Resp B/P (MAP) Pulse Ox O2 Delivery O2 Flow Rate FiO2 09/28/17 08:31 143/75 09/28/17 08:00 97.7 86 20 143/75 98 97.7 09/28/17 04:00 98.2 98 20 137/78 98 98.2 09/28/17 00:00 98.5 90 20 136/74 96 98.5 09/27/17 20:00 98.1 89 20 147/71 96 98.1 09/27/17 17:28 159/76 09/27/17 16:00 98.7 83 18 159/76 99 Room Air 98.7 Intake and Output 09/27/17 09/28/17 19:00 07:00 Intake Total 410 ml Output Total 1000 ml 750 ml Balance -590 ml -750 ml Intake Oral 360 ml IV Total 50 ml Output Urine Total 1000 ml 750 ml # Bowel Movements 1 Height (Feet): 5 Height (Inches): 1.00 Weight (Pounds): 149 General Appearance: no apparent distress Respiratory/Chest: decreased breath sounds Abdomen: soft Objective no change BARRY SMITH September 28, 2017 12:40
[2017-09-28] MEDS ORDERED: Vancomycin 750mg/NS 250ml 250 ML IVPB SCH (15:00)
[2017-09-28] MEDS ORDERED: NS 275ml ONE (15:07)
[2017-09-28] MEDS ORDERED: Tubing IV Secondary IV ONE (15:07)
[2017-09-28 16:00] VITALS: BP 159/73
--- NOTE | 2017-09-28 17:51 | Infectious Diseases Prog Note ---
Assessment/Plan Problems: (1) UTI (urinary tract infection) Assessment & Plan: recurrent , with E coli , continue ceftriaxon for 7 days (2) Sepsis Assessment & Plan: due to the above, on vancomycin and ceftriaxon empirically , pending blood culture (3) Diabetes type 2, uncontrolled Assessment & Plan: recommend tight glycemic control to keep blood glucose between 100-140 (4) Acute encephalopathy Assessment & Plan: due to the above, continue neuro check and tele monitor (5) Alzheimer's dementia Assessment & Plan: continue supportive care (6) Abrasion or friction burn of groin with infection Assessment & Plan: continue ceftriaxon and vancomycin empirically , continue local wound care as per hospital protocol Subjective Constitutional: Reports: no symptoms HEENT: Reports: no symptoms Respiratory: Reports: no symptoms Breasts: Reports: no symptoms Cardiovascular: Reports: no symptoms Gastrointestinal/Abdominal: Reports: no symptoms Genitourinary: Reports: no symptoms Neurologic: Reports: no symptoms Psychiatric: Reports: no symptoms Skin: Reports: no symptoms Endocrine: Reports: no symptoms Hematologic: Reports: no symptoms Musculoskeletal: Reports: no symptoms Allergies: Coded Allergies: PENICILLINS (Verified Allergy, Severe, Rash, 01/31/16) Swelling Redness Rash Subjective she was more awake and alert, and comfortable, setting in bed , POA at bedside Objective Vital Signs Last 24 Hour Vital Signs Date Time Temp Pulse Resp B/P (MAP) Pulse Ox O2 Delivery O2 Flow Rate FiO2 09/28/17 16:00 97.3 72 20 159/73 98 97.3 09/28/17 12:00 97.2 59 20 144/71 98 97.2 09/28/17 08:31 143/75 09/28/17 08:00 97.7 86 20 143/75 98 97.7 09/28/17 04:00 98.2 98 20 137/78 98 98.2 09/28/17 00:00 98.5 90 20 136/74 96 98.5 09/27/17 20:00 98.1 89 20 147/71 96 98.1 Height (Feet): 5 Height (Inches): 1.00 Weight (Pounds): 149 General Appearance: WD/WN, no acute distress HEENT: normocephalic, atraumatic, anicteric, mucous membranes moist, PERRL Respiratory/Chest: chest wall non-tender, lungs clear, normal breath sounds, no respiratory distress, no accessory muscle use Cardiovascular: normal peripheral pulses, normal rate, regular rhythm, no gallop/murmur, no JVD Abdomen: normal bowel sounds, soft, non tender, no organomegaly, non distended , no mass Extremities: no cyanosis, no clubbing Skin: no rash, no lesions, no ulcers Neurologic/Psychiatric: alert Lymphatic: no neck adenopathy, no groin adenopathy Laboratory Tests Test 09/28/17 14:43 Vancomycin Level Trough 9.1 ug/mL (5.0-12.0) Current Medications Medications (Trade) Dose Ordered Sig/Олег Route PRN Reason Start Time Stop Time Status Last Admin Dose Admin Acetaminophen (Tylenol) 500 mg Q4H PRN ORAL Mild Pain/Temp > 100.5 09/27/17 16:59 10/24/17 16:58 Benazepril HCl (Lotensin) 10 mg BID ORAL 09/27/17 18:00 10/27/17 17:59 09/28/17 08:31 Ceftriaxone Sodium 1 gm/ Dextrose 55 ml @ 110 mls/hr Q24H IVPB 09/27/17 18:00 10/04/17 17:59 09/27/17 17:28 Clonidine HCl (Catapres Tab) 0.1 mg Q4H PRN ORAL bp over 165 syst 09/27/17 16:59 10/24/17 16:58 Dextrose (Dextrose 50%) 25 ml STAT PRN IV Hypoglycemia 09/27/17 16:59 10/27/17 16:58 Donepezil HCl (Aricept) 10 mg QHS ORAL 09/27/17 21:00 10/27/17 20:59 09/27/17 20:37 Famotidine (Pepcid) 20 mg DAILY ORAL 09/28/17 09:00 10/27/17 08:59 09/28/17 08:30 Heparin Sodium (Porcine) (Heparin 5000 units/ml) 5,000 units EVERY 12 HOURS SUBQ 09/27/17 21:00 10/25/17 08:59 Insulin Aspart (NovoLOG) BEFORE MEALS AND HS SUBQ 09/27/17 16:30 10/25/17 16:29 09/28/17 16:35 Nateglinide (Starlix) 60 mg TIAC ORAL 09/28/17 06:30 10/27/17 08:29 09/28/17 16:33 Ondansetron HCl (Zofran) 4 mg Q6H PRN IVP Nausea & Vomiting 09/27/17 17:00 10/24/17 22:59 Vancomycin HCl (Vanco rx to dose) 1 ea DAILY PRN MISC Per rx protocol 09/27/17 17:01 10/27/17 17:00 Vancomycin/Sodium Chloride 250 ml @ 166.667 mls/hr Q24H IVPB 09/28/17 15:00 10/01/17 14:59 09/28/17 16:33 Alicja Webster M.D. September 28, 2017 17:51
[2017-09-28] MEDS: cefTRIAXone 1 GM in D5W 55 ML IVPB SCH (18:00)
[2017-09-28 20:00] VITALS: BP 152/79
[2017-09-28] MEDS: Cephalexin 500mg cap ORAL SCH (21:13)
[2017-09-28] MEDS: Donepezil 10mg tab ORAL SCH (21:13)
[2017-09-29] VITALS: BP 163/69
[2017-09-29] MEDS: Cephalexin 500mg cap ORAL SCH ×4 (00:12→17:07)
[2017-09-29 04:00] VITALS: BP 174/89
[2017-09-29] MEDS: Nateglinide 60mg tab ORAL SCH ×2 (05:40→11:46)
[2017-09-29] MEDS: NovoLOG Insulin Flexpen SUBQ SCH ×4 (06:12→20:40)
[2017-09-29 06:16] LABS: BASOPHILS % (AUTO) 0.7 % (0.0-2.0); EOSINOPHILS % (AUTO) 4.7 % (0.0-3.0); HEMATOCRIT 44.2 % (37.0-47.0); HEMOGLOBIN 14.7 G/DL (12.0-16.0); MEAN CORPUSCULAR VOLUME 93 FL (80-99); NEUTROPHILS % (AUTO) 61.6 % (45.0-75.0); PLATELET COUNT 159 K/UL (150-450); RED BLOOD COUNT 4.76 M/UL (4.20-5.40); RED CELL DISTRIBUTION WIDTH 12.7 % (11.6-14.8); WHITE BLOOD COUNT 6.8 K/UL (4.8-10.8)
[2017-09-29 06:56] LABS: ALANINE AMINOTRANSFERASE 18 U/L (12-78); ALBUMIN 2.4 G/DL (3.4-5.0); ALBUMIN/GLOBULIN RATIO 0.6 (1.0-2.7); ALKALINE PHOSPHATASE 109 U/L (46-116); ANION GAP 11 mmol/L (5-15); ASPARTATE AMINO TRANSFERASE 19 U/L (15-37); BILIRUBIN,TOTAL 0.5 MG/DL (0.2-1.0); BLOOD UREA NITROGEN 8 mg/dL (7-18); CALCIUM 8.7 MG/DL (8.5-10.1); CARBON DIOXIDE 26 MMOL/L (21-32); CHLORIDE 110 MMOL/L (98-107); PHOSPHORUS 2.8 MG/DL (2.5-4.9); POTASSIUM 3.2 MMOL/L (3.5-5.1); SODIUM 147 MMOL/L (136-145)
[2017-09-29 08:00] VITALS: BP 138/68
[2017-09-29] MEDS: Benazepril 10mg tab ORAL SCH ×2 (08:45→17:07)
[2017-09-29] MEDS: Heparin 5000 units/ml inj SUBQ SCH ×2 (08:46→20:39)
[2017-09-29 12:00] VITALS: BP 140/66
--- NOTE | 2017-09-29 15:10 | General Progress Note ---
Assessment/Plan Problem List: (1) Sepsis ICD Codes: A41.9 - Sepsis, unspecified organism SNOMED: 73279550 (2) Pyelonephritis ICD Codes: N12 - Tubulo-interstitial nephritis, not specified as acute or chronic SNOMED: 02469016 (3) Diabetes type 2, uncontrolled ICD Codes: E11.65 - Type 2 diabetes mellitus with hyperglycemia SNOMED: 635489267 (4) At high risk for aspiration ICD Codes: Z91.89 - Other specified personal risk factors, not elsewhere classified SNOMED: 025813785 (5) Hypernatremia ICD Codes: E87.0 - Hyperosmolality and hypernatremia SNOMED: 53499633 (6) UTI (urinary tract infection) ICD Codes: N39.0 - Urinary tract infection, site not specified SNOMED: 04012255 Status: stable Assessment/Plan K supplement on PO antibiotics DC in am will discuss with ID, DC on Keflex increase starlix dose Subjective ROS Limited/Unobtainable: No Allergies: Coded Allergies: PENICILLINS (Verified Allergy, Severe, Rash, 01/31/16) Swelling Redness Rash Objective Last 24 Hour Vital Signs Date Time Temp Pulse Resp B/P (MAP) Pulse Ox O2 Delivery O2 Flow Rate FiO2 09/29/17 12:00 97.7 86 19 140/66 98 97.7 09/29/17 08:45 138/68 09/29/17 08:00 97.9 87 19 138/68 98 97.9 09/29/17 04:29 174/89 09/29/17 04:00 98.2 95 19 174/89 98 98.2 09/29/17 00:00 98.4 91 19 163/69 94 98.4 09/28/17 20:00 98.3 94 19 152/79 96 98.3 09/28/17 18:28 159/73 09/28/17 16:00 97.3 72 20 159/73 98 97.3 Intake and Output 09/28/17 09/29/17 19:00 07:00 Intake Total 160 ml Output Total 500 ml 1200 ml Balance -340 ml -1200 ml Intake Oral 160 ml Output Urine Total 500 ml 1200 ml Current Medications Medications (Trade) Dose Ordered Sig/Олег Route PRN Reason Start Time Stop Time Status Last Admin Dose Admin Acetaminophen (Tylenol) 500 mg Q4H PRN ORAL Mild Pain/Temp > 100.5 09/27/17 16:59 10/24/17 16:58 Benazepril HCl (Lotensin) 10 mg BID ORAL 09/27/17 18:00 10/27/17 17:59 09/29/17 08:45 Cephalexin (Keflex) 500 mg EVERY 6 HOURS ORAL 09/28/17 19:30 10/05/17 19:29 09/29/17 11:46 Clonidine HCl (Catapres Tab) 0.1 mg Q4H PRN ORAL bp over 165 syst 09/27/17 16:59 10/24/17 16:58 09/29/17 04:29 Dextrose (Dextrose 50%) 25 ml STAT PRN IV Hypoglycemia 09/27/17 16:59 10/27/17 16:58 Donepezil HCl (Aricept) 10 mg QHS ORAL 09/27/17 21:00 10/27/17 20:59 09/28/17 21:13 Famotidine (Pepcid) 20 mg DAILY ORAL 09/28/17 09:00 10/27/17 08:59 09/29/17 08:45 Heparin Sodium (Porcine) (Heparin 5000 units/ml) 5,000 units EVERY 12 HOURS SUBQ 09/27/17 21:00 10/25/17 08:59 09/29/17 08:46 Insulin Aspart (NovoLOG) BEFORE MEALS AND HS SUBQ 09/27/17 16:30 10/25/17 16:29 09/29/17 11:48 Nateglinide (Starlix) 120 mg TIAC ORAL 09/29/17 16:30 10/27/17 08:29 Ondansetron HCl (Zofran) 4 mg Q6H PRN IVP Nausea & Vomiting 09/27/17 17:00 10/24/17 22:59 Potassium Chloride (K-Dur) 40 meq TWICE A DAY ORAL 09/29/17 14:00 10/29/17 13:59 09/29/17 15:01 Laboratory Tests 09/29/17 05:37: White Blood Count 6.8, Red Blood Count 4.76, Hemoglobin 14.7, Hematocrit 44.2, Mean Corpuscular Volume 93, Mean Corpuscular Hemoglobin 30.8, Mean Corpuscular Hemoglobin Concent 33.2, Red Cell Distribution Width 12.7, Platelet Count 159, Mean Platelet Volume 7.7, Neutrophils (%) (Auto) 61.6, Lymphocytes (%) (Auto) 27.0, Monocytes (%) (Auto) 6.0, Eosinophils (%) (Auto) 4.7H, Basophils (%) (Auto ) 0.7, Sodium Level 147H, Potassium Level 3.2L, Chloride Level 110H, Carbon Dioxide Level 26, Anion Gap 11, Blood Urea Nitrogen 8, Creatinine 1.0, Estimat Glomerular Filtration Rate , Glucose Level 209H, Calcium Level 8.7, Phosphorus Level 2.8, Magnesium Level 1.9, Total Bilirubin 0.5, Aspartate Amino Transf (AST /SGOT) 19, Alanine Aminotransferase (ALT/SGPT) 18, Alkaline Phosphatase 109, C- Reactive Protein, Quantitative 3.9H, Total Protein 6.6, Albumin 2.4L, Globulin 4.2, Albumin/Globulin Ratio 0.6L Height (Feet): 5 Height (Inches): 1.00 Weight (Pounds): 149 General Appearance: no apparent distress Respiratory/Chest: lungs clear Abdomen: soft Objective no change BARRY SMITH September 29, 2017 15:10
[2017-09-29 16:00] VITALS: BP 146/74
--- NOTE | 2017-09-29 16:13 | Infectious Diseases Prog Note ---
Assessment/Plan Problems: (1) UTI (urinary tract infection) Assessment & Plan: recurrent , with E coli , continue keflex for 6 more days (2) Sepsis Assessment & Plan: due to the above, blood culture is negative (3) Diabetes type 2, uncontrolled Assessment & Plan: recommend tight glycemic control to keep blood glucose between 100-140 (4) Acute encephalopathy Assessment & Plan: due to the above, continue neuro check and tele monitor (5) Alzheimer's dementia Assessment & Plan: continue supportive care (6) Abrasion or friction burn of groin with infection Assessment & Plan: continue keflex for 6 more days , continue local wound care as per hospital protocol Subjective Allergies: Coded Allergies: PENICILLINS (Verified Allergy, Severe, Rash, 01/31/16) Swelling Redness Rash Subjective she was more awake and alert, and comfortable, setting in bed , POA at bedside Objective Vital Signs Last 24 Hour Vital Signs Date Time Temp Pulse Resp B/P (MAP) Pulse Ox O2 Delivery O2 Flow Rate FiO2 09/29/17 12:00 97.7 86 19 140/66 98 97.7 09/29/17 08:45 138/68 09/29/17 08:00 97.9 87 19 138/68 98 97.9 09/29/17 04:29 174/89 09/29/17 04:00 98.2 95 19 174/89 98 98.2 09/29/17 00:00 98.4 91 19 163/69 94 98.4 09/28/17 20:00 98.3 94 19 152/79 96 98.3 09/28/17 18:28 159/73 Height (Feet): 5 Height (Inches): 1.00 Weight (Pounds): 149 General Appearance: WD/WN, no acute distress HEENT: normocephalic, atraumatic, anicteric, mucous membranes moist, PERRL Respiratory/Chest: chest wall non-tender, lungs clear, normal breath sounds, no respiratory distress, no accessory muscle use Cardiovascular: normal peripheral pulses, normal rate, regular rhythm, no gallop/murmur, no JVD Abdomen: normal bowel sounds, soft, non tender, no organomegaly, non distended , no mass, no scars Extremities: no cyanosis, no clubbing Skin: no rash, no lesions, ulcers - on the inner thigh Neurologic/Psychiatric: alert, oriented x 3, responsive Lymphatic: no neck adenopathy, no groin adenopathy Laboratory Tests Test 09/29/17 05:37 White Blood Count 6.8 K/UL (4.8-10.8) Red Blood Count 4.76 M/UL (4.20-5.40) Hemoglobin 14.7 G/DL (12.0-16.0) Hematocrit 44.2 % (37.0-47.0) Mean Corpuscular Volume 93 FL (80-99) Mean Corpuscular Hemoglobin 30.8 PG (27.0-31.0) Mean Corpuscular Hemoglobin Concent 33.2 G/DL (32.0-36.0) Red Cell Distribution Width 12.7 % (11.6-14.8) Platelet Count 159 K/UL (150-450) Mean Platelet Volume 7.7 FL (6.5-10.1) Neutrophils (%) (Auto) 61.6 % (45.0-75.0) Lymphocytes (%) (Auto) 27.0 % (20.0-45.0) Monocytes (%) (Auto) 6.0 % (1.0-10.0) Eosinophils (%) (Auto) 4.7 % (0.0-3.0) H Basophils (%) (Auto) 0.7 % (0.0-2.0) Sodium Level 147 MMOL/L (136-145) H Potassium Level 3.2 MMOL/L (3.5-5.1) L Chloride Level 110 MMOL/L (98-107) H Carbon Dioxide Level 26 MMOL/L (21-32) Anion Gap 11 mmol/L (5-15) Blood Urea Nitrogen 8 mg/dL (7-18) Creatinine 1.0 MG/DL (0.55-1.30) Estimat Glomerular Filtration Rate mL/min (>60) Glucose Level 209 MG/DL (74-106) H Calcium Level 8.7 MG/DL (8.5-10.1) Phosphorus Level 2.8 MG/DL (2.5-4.9) Magnesium Level 1.9 MG/DL (1.8-2.4) Total Bilirubin 0.5 MG/DL (0.2-1.0) Aspartate Amino Transf (AST/SGOT) 19 U/L (15-37) Alanine Aminotransferase (ALT/SGPT) 18 U/L (12-78) Alkaline Phosphatase 109 U/L (46-116) C-Reactive Protein, Quantitative 3.9 mg/dL (0.00-0.90) H Total Protein 6.6 G/DL (6.4-8.2) Albumin 2.4 G/DL (3.4-5.0) L Globulin 4.2 g/dL Albumin/Globulin Ratio 0.6 (1.0-2.7) L Current Medications Medications (Trade) Dose Ordered Sig/Олег Route PRN Reason Start Time Stop Time Status Last Admin Dose Admin Acetaminophen (Tylenol) 500 mg Q4H PRN ORAL Mild Pain/Temp > 100.5 09/27/17 16:59 10/24/17 16:58 Benazepril HCl (Lotensin) 10 mg BID ORAL 09/27/17 18:00 10/27/17 17:59 09/29/17 08:45 Cephalexin (Keflex) 500 mg EVERY 6 HOURS ORAL 09/28/17 19:30 10/05/17 19:29 09/29/17 11:46 Clonidine HCl (Catapres Tab) 0.1 mg Q4H PRN ORAL bp over 165 syst 09/27/17 16:59 10/24/17 16:58 09/29/17 04:29 Dextrose (Dextrose 50%) 25 ml STAT PRN IV Hypoglycemia 09/27/17 16:59 10/27/17 16:58 Donepezil HCl (Aricept) 10 mg QHS ORAL 09/27/17 21:00 10/27/17 20:59 09/28/17 21:13 Famotidine (Pepcid) 20 mg DAILY ORAL 09/28/17 09:00 10/27/17 08:59 09/29/17 08:45 Heparin Sodium (Porcine) (Heparin 5000 units/ml) 5,000 units EVERY 12 HOURS SUBQ 09/27/17 21:00 10/25/17 08:59 09/29/17 08:46 Insulin Aspart (NovoLOG) BEFORE MEALS AND HS SUBQ 09/27/17 16:30 10/25/17 16:29 09/29/17 11:48 Nateglinide (Starlix) 120 mg TIAC ORAL 09/29/17 16:30 10/27/17 08:29 Ondansetron HCl (Zofran) 4 mg Q6H PRN IVP Nausea & Vomiting 09/27/17 17:00 10/24/17 22:59 Potassium Chloride (K-Dur) 40 meq TWICE A DAY ORAL 09/29/17 14:00 10/29/17 13:59 09/29/17 15:01 Alicja Webster M.D. September 29, 2017 16:13
[2017-09-29 20:00] VITALS: BP 138/80
[2017-09-29] MEDS: Donepezil 10mg tab ORAL SCH (20:38)
[2017-09-30] VITALS: BP 152/89
[2017-09-30] MEDS: Cephalexin 500mg cap ORAL SCH ×3 (00:33→12:20)
[2017-09-30 04:00] VITALS: BP 135/77
[2017-09-30] MEDS: NovoLOG Insulin Flexpen SUBQ SCH ×2 (06:14→12:21)
[2017-09-30] MEDS: Benazepril 10mg tab ORAL SCH (08:18)
[2017-09-30] MEDS: Heparin 5000 units/ml inj SUBQ SCH (08:20)
--- NOTE | 2017-09-30 09:48 | General Progress Note ---
Assessment/Plan Problem List: (1) Sepsis ICD Codes: A41.9 - Sepsis, unspecified organism SNOMED: 35180296 (2) Pyelonephritis ICD Codes: N12 - Tubulo-interstitial nephritis, not specified as acute or chronic SNOMED: 16694408 (3) Diabetes type 2, uncontrolled ICD Codes: E11.65 - Type 2 diabetes mellitus with hyperglycemia SNOMED: 334461695 (4) At high risk for aspiration ICD Codes: Z91.89 - Other specified personal risk factors, not elsewhere classified SNOMED: 521704593 (5) Hypernatremia ICD Codes: E87.0 - Hyperosmolality and hypernatremia SNOMED: 87941970 (6) UTI (urinary tract infection) ICD Codes: N39.0 - Urinary tract infection, site not specified SNOMED: 69215027 Status: stable Assessment/Plan K supplement as needed on PO antibiotics DC today will discuss with ID, DC on Keflex increase starlix dose Subjective ROS Limited/Unobtainable: No Allergies: Coded Allergies: PENICILLINS (Verified Allergy, Severe, Rash, 01/31/16) Swelling Redness Rash Objective Last 24 Hour Vital Signs Date Time Temp Pulse Resp B/P (MAP) Pulse Ox O2 Delivery O2 Flow Rate FiO2 09/30/17 08:18 146/66 09/30/17 04:00 97.3 69 18 135/77 100 97.3 09/30/17 00:00 97.2 82 18 152/89 97 97.2 09/29/17 20:00 97.5 82 18 138/80 98 97.5 09/29/17 17:07 146/74 09/29/17 16:00 97.3 82 19 146/74 98 97.3 09/29/17 12:00 97.7 86 19 140/66 98 97.7 Intake and Output 09/29/17 09/30/17 19:00 07:00 Intake Total 140 ml Output Total 400 ml 500 ml Balance -260 ml -500 ml Intake Oral 140 ml Output Urine Total 400 ml 500 ml # Bowel Movements 2 Current Medications Medications (Trade) Dose Ordered Sig/Олег Route PRN Reason Start Time Stop Time Status Last Admin Dose Admin Acetaminophen (Tylenol) 500 mg Q4H PRN ORAL Mild Pain/Temp > 100.5 09/27/17 16:59 10/24/17 16:58 Benazepril HCl (Lotensin) 10 mg BID ORAL 09/27/17 18:00 10/27/17 17:59 09/30/17 08:18 Cephalexin (Keflex) 500 mg EVERY 6 HOURS ORAL 09/28/17 19:30 10/05/17 19:29 09/30/17 06:13 Clonidine HCl (Catapres Tab) 0.1 mg Q4H PRN ORAL bp over 165 syst 09/27/17 16:59 10/24/17 16:58 09/29/17 04:29 Dextrose (Dextrose 50%) 25 ml STAT PRN IV Hypoglycemia 09/27/17 16:59 10/27/17 16:58 Donepezil HCl (Aricept) 10 mg QHS ORAL 09/27/17 21:00 10/27/17 20:59 09/29/17 20:38 Famotidine (Pepcid) 20 mg DAILY ORAL 09/28/17 09:00 10/27/17 08:59 09/30/17 08:17 Heparin Sodium (Porcine) (Heparin 5000 units/ml) 5,000 units EVERY 12 HOURS SUBQ 09/27/17 21:00 10/25/17 08:59 09/30/17 08:20 Insulin Aspart (NovoLOG) BEFORE MEALS AND HS SUBQ 09/27/17 16:30 10/25/17 16:29 09/30/17 06:14 Nateglinide (Starlix) 120 mg TIAC ORAL 09/29/17 16:30 10/27/17 08:29 09/30/17 06:13 Ondansetron HCl (Zofran) 4 mg Q6H PRN IVP Nausea & Vomiting 09/27/17 17:00 10/24/17 22:59 Potassium Chloride (K-Dur) 40 meq TWICE A DAY ORAL 09/29/17 14:00 10/29/17 13:59 09/30/17 08:17 Height (Feet): 5 Height (Inches): 1.00 Weight (Pounds): 149 General Appearance: no apparent distress Objective no change BARRY SMITH September 30, 2017 09:48
[2017-09-30] MEDS ORDERED: STARLIX120 MG ORAL (09:53)
[2017-09-30] MEDS ORDERED: ARICEPT10 MG ORAL (09:53)
--- NOTE | 2017-09-30 09:54 | Discharge Instructions ---
Discharge Instructions Discharge Instructions Follow up with: fu with me at SNF Diet: cardiac 2 GM Na, low fat Special Instructions aspiration percautions- skin care For Congestive Heart Failure Reminder Report to your physician any weight gain of 5 pounds or more in one week. BARRY SMITH September 30, 2017 09:54
[2017-09-30 11:54] VITALS: BP 144/61
--- NOTE | 2017-09-30 15:29 | Infectious Diseases Prog Note ---
Assessment/Plan Problems: (1) UTI (urinary tract infection) Assessment & Plan: recurrent , with E coli , continue keflex for 5 more days (2) Sepsis Assessment & Plan: due to the above, blood culture is negative (3) Diabetes type 2, uncontrolled Assessment & Plan: recommend tight glycemic control to keep blood glucose between 100-140 (4) Acute encephalopathy Assessment & Plan: due to the above, continue neuro check and tele monitor (5) Alzheimer's dementia Assessment & Plan: continue supportive care (6) Abrasion or friction burn of groin with infection Assessment & Plan: continue keflex for 5 more days , continue local wound care as per hospital protocol Subjective Constitutional: Reports: no symptoms HEENT: Reports: no symptoms Respiratory: Reports: no symptoms Breasts: Reports: no symptoms Cardiovascular: Reports: no symptoms Gastrointestinal/Abdominal: Reports: no symptoms Genitourinary: Reports: no symptoms Neurologic: Reports: no symptoms Psychiatric: Reports: no symptoms Skin: Reports: no symptoms Endocrine: Reports: no symptoms Hematologic: Reports: no symptoms Allergies: Coded Allergies: PENICILLINS (Verified Allergy, Severe, Rash, 01/31/16) Swelling Redness Rash Subjective she was more awake and alert, and comfortable, denied any symptoms , setting in bed , POA at bedside Objective Vital Signs Last 24 Hour Vital Signs Date Time Temp Pulse Resp B/P (MAP) Pulse Ox O2 Delivery O2 Flow Rate FiO2 09/30/17 11:54 98.3 71 18 144/61 97 Room Air 98.3 09/30/17 08:18 146/66 09/30/17 04:00 97.3 69 18 135/77 100 97.3 09/30/17 00:00 97.2 82 18 152/89 97 97.2 09/29/17 20:00 97.5 82 18 138/80 98 97.5 09/29/17 17:07 146/74 09/29/17 16:00 97.3 82 19 146/74 98 97.3 Height (Feet): 5 Height (Inches): 1.00 Weight (Pounds): 149 General Appearance: WD/WN, no acute distress HEENT: normocephalic, atraumatic, anicteric, mucous membranes moist, PERRL Respiratory/Chest: chest wall non-tender, lungs clear, normal breath sounds, no respiratory distress, no accessory muscle use Cardiovascular: normal peripheral pulses, normal rate, regular rhythm, no gallop/murmur, no JVD Abdomen: normal bowel sounds, soft, non tender, no organomegaly, non distended , no mass, no scars Extremities: no cyanosis, no clubbing Skin: no rash, no lesions, no ulcers Neurologic/Psychiatric: alert, oriented x 3, responsive Lymphatic: no neck adenopathy, no groin adenopathy Current Medications Medications (Trade) Dose Ordered Sig/Олег Route PRN Reason Start Time Stop Time Status Last Admin Dose Admin Acetaminophen (Tylenol) 500 mg Q4H PRN ORAL Mild Pain/Temp > 100.5 09/27/17 16:59 10/24/17 16:58 Benazepril HCl (Lotensin) 10 mg BID ORAL 09/27/17 18:00 10/27/17 17:59 09/30/17 08:18 Cephalexin (Keflex) 500 mg EVERY 6 HOURS ORAL 09/28/17 19:30 10/05/17 19:29 09/30/17 12:20 Clonidine HCl (Catapres Tab) 0.1 mg Q4H PRN ORAL bp over 165 syst 09/27/17 16:59 10/24/17 16:58 09/29/17 04:29 Dextrose (Dextrose 50%) 25 ml STAT PRN IV Hypoglycemia 09/27/17 16:59 10/27/17 16:58 Donepezil HCl (Aricept) 10 mg QHS ORAL 09/27/17 21:00 10/27/17 20:59 09/29/17 20:38 Famotidine (Pepcid) 20 mg DAILY ORAL 09/28/17 09:00 10/27/17 08:59 09/30/17 08:17 Heparin Sodium (Porcine) (Heparin 5000 units/ml) 5,000 units EVERY 12 HOURS SUBQ 09/27/17 21:00 10/25/17 08:59 09/30/17 08:20 Insulin Aspart (NovoLOG) BEFORE MEALS AND HS SUBQ 09/27/17 16:30 10/25/17 16:29 09/30/17 12:21 Nateglinide (Starlix) 120 mg TIAC ORAL 09/29/17 16:30 10/27/17 08:29 09/30/17 12:20 Ondansetron HCl (Zofran) 4 mg Q6H PRN IVP Nausea & Vomiting 09/27/17 17:00 10/24/17 22:59 Potassium Chloride (K-Dur) 40 meq TWICE A DAY ORAL 09/29/17 14:00 10/29/17 13:59 09/30/17 08:17 Alicja Wesbter M.D. September 30, 2017 15:29
--- NOTE | 2017-10-03 08:25 | Discharge Summary ---
Discharge Summary Discharge Summary _ DATE OF ADMISSION: 09/24/2017 DATE OF DISCHARGE: 09/30/2017 REASON FOR ADMISSION: 87 years old female with past medical history significant for diabetes, dementia, encephalopathy presented to emergency department with decreased alertness. At baseline patient confused but alert. Over the past few days, patient was less active and more sleepy. Patient by herself was unable to provide any history. Upon evaluation, patient was found tachycardic, patient required placement on nasal cannula. WBC 12.7, lactic acid 2.9 , urinalysis with evidence of infection ,sodium 163, BUN 30 creatinine 1.9, blood glucose 393. Chest x-ray revealed no acute cardiopulmonary pathology. Patient admitted with diagnoses sepsis, pyelonephritis, hypernatremia, acute kidney injury, hyperglycemia, acute encephalopathy, Alzheimer dementia. CONSULTANTS: ID specialist Dr. Webster [facility]SE: Patient admitted. She was kept nothing by mouth. Patient started on intravenous fluid with dextrose and empiric antibiotic. ID consult was requested. Urinalysis revealed Escherichia coli. Patient also had evidence of abrasion versus friction burn on the groin with infection . Local wound care for on groin abrasion versus friction provided. Patient was on antibiotic regimen as per infectious disease doctor recommendations. Renal parameters and electrolytes were closely monitored. Nephrotoxins were avoided. Hypernatremia and acute kidney injury were probably due to dehydration and sepsis, prior to discharge sodium 147., BUN 8 , creatinine 1.0. Hemoglobin A1c 8.4, not at goal. Blood sugar was managed with sliding scale of insulin and Starlix, dose of which was uptitrated. Patient needs close monitoring and management of blood sugar as outpatient, to bring hemoglobin A1c under control. DVT and GI prophylaxis provided. Aricept was continued. Acute encephalopathy was likely secondary to sepsis due to urinary tract infection. Bedside swallow evaluation revealed high aspiration risk with moderate worsening oropharyngeal dysphagia. Strict aspiration precautions were maintained. Diet was downgraded as per speech therapy recommendations. Patient clinically stabilized: leukocytosis resolved ,blood sugar improved, renal parameters stable, sodium back to baseline, mental status back to baseline . Patient was stable for discharge FINAL DIAGNOSES: Sepsis Pyelonephritis with Escherichia coli Diabetes mellitus type 2 out of control Hypernatremia Acute kidney injury ( resolved) High aspiration risk with moderate worsening oropharyngeal dysphagia Acute encephalopathy on chronic Alzheimer dementia ( resolved) Abrasion or friction burn off groin with infection DISCHARGE MEDICATIONS: See Medication Reconciliation list. DISCHARGE INSTRUCTIONS: Patient discharged to snf facility. Follow up with medical doctor at the facility I have been assigned to dictate discharge summary for this account. I was not involved in the patient's management. Amber Bennett NP October 03, 2017 08:25
== END 2017-09-30 15:46 | DRG 871 ==
LOC: EDBD 19:03 → EMR 19:39 → 2E 20:50 → EDBEDREQ 21:36 → 4E 09-27 16:18
DX: A41.9 Sepsis, unspecified organism (principal); G93.40 Encephalopathy, unspecified; N39.0 Urinary tract infection, site not specified; E87.0 Hyperosmolality and hypernatremia; N17.9 Acute kidney failure, unspecified; E87.2 Acidosis; L03.115 Cellulitis of right lower limb; E11.65 Type 2 diabetes mellitus with hyperglycemia; E86.0 Dehydration; I25.10 Atherosclerotic heart disease of native coronary artery without angina pectoris; K21.9 Gastro-esophageal reflux disease without esophagitis; S30.811A Abrasion of abdominal wall, initial encounter; L08.9 Local infection of the skin and subcutaneous tissue, unspecified; X58.XXXA Exposure to other specified factors, initial encounter; Y92.129 Unspecified place in nursing home as the place of occurrence of the external cause
CPT/HCPCS: 36415; 71045; 80053; 80061; 80202; 81003; 82550; 82553; 82962; 82977; 83036; 83605; 83735; 83880; 84100; 84443; 84484; 84550; 85025; 86140; 87040; 87081; 87086; 87181; 93005; 99285; J1815; J8499

== ENCOUNTER 2018-02-13 11:24 | Inpatient (IN) | payer MEDICARE, BC, MEDICAID ==
[~2018-02-13] VITALS: Ht 167.6 cm; Wt 83.9 kg
[~2018-02-13 11:24] MED LIST changes: +ARICEPT10 MG ORAL; +CRANBERRY200 M1 PO; +FLEET ENEMA133 ML RECTAL; +STARLIX120 MG ORAL
[2018-02-13 11:59] VITALS: BP 166/76
[2018-02-13] MEDS ORDERED: Albuterol ud Inhalation HHN ONE (12:00)
[2018-02-13] MEDS ORDERED: Ipratropium 0.02% Inh Soln 2.5ml UD HHN ONE (12:00)
[2018-02-13 12:05] LABS: BASOPHILS % (AUTO) 0.6 % (0.0-2.0); EOSINOPHILS % (AUTO) 0.6 % (0.0-3.0); HEMATOCRIT 44.5 % (37.0-47.0); HEMOGLOBIN 14.4 G/DL (12.0-16.0); LYMPHOCYTES % (AUTO) 15.8 % (20.0-45.0); MEAN CORPUSCULAR VOLUME 91 FL (80-99); MONOCYTES % (AUTO) 6.3 % (1.0-10.0); NEUTROPHILS % (AUTO) 76.7 % (45.0-75.0); PLATELET COUNT 272 K/UL (150-450); RED BLOOD COUNT 4.89 M/UL (4.20-5.40); RED CELL DISTRIBUTION WIDTH 11.9 % (11.6-14.8); WHITE BLOOD COUNT 11.5 K/UL (4.8-10.8)
[2018-02-13 12:09] LABS: APPEARANCE,URINE SLIGHTLY CLOUDY; BILIRUBIN, URINE NEGATIVE (NEGATIVE); COLOR,URINE PALE YELLOW; GLUCOSE, URINE (UA) 4+ (NEGATIVE); KETONES,URINE 1+ (NEGATIVE); LEUKOCYTE ESTERASE ,URINE 2+ (NEGATIVE); NITRITE,URINE POSITIVE (NEGATIVE); PH,URINE 5 (4.5-8.0); PROTEIN,URINE 2+ (NEGATIVE); UROBILINOGEN,URINE NORMAL MG/DL (0.0-1.0)
[2018-02-13 12:14] LABS: ANION GAP 10 mmol/L (5-15); BLOOD UREA NITROGEN 11 mg/dL (7-18); CALCIUM 9.1 MG/DL (8.5-10.1); CARBON DIOXIDE 25 MMOL/L (21-32); CHLORIDE 113 MMOL/L (98-107); CREATININE 1.1 MG/DL (0.55-1.30); POTASSIUM 3.8 MMOL/L (3.5-5.1); SODIUM 148 MMOL/L (136-145)
[2018-02-13 12:19] LABS: ALANINE AMINOTRANSFERASE 28 U/L (12-78); ALBUMIN 2.4 G/DL (3.4-5.0); ALBUMIN/GLOBULIN RATIO 0.5 (1.0-2.7); ALKALINE PHOSPHATASE 107 U/L (46-116); ASPARTATE AMINO TRANSFERASE 25 U/L (15-37); BILIRUBIN,TOTAL 0.7 MG/DL (0.2-1.0)
[2018-02-13 12:43] LABS: CKMB < 0.5 NG/ML (0.0-3.6); CREATINE KINASE 43 U/L (26-308)
--- NOTE | 2018-02-13 12:57 | Diagnostic Imaging Report ---
Indication: Dyspnea Comparison: 12/15/2017 A single view chest radiograph was obtained. Findings: Cardiomediastinal appearance is within normal limits for age. The lungs are clear. Pulmonary vascularity is appropriate. The diaphragmatic contour is smooth and costophrenic angles are sharp. No pleural effusions are identified. The bones are unremarkable. Impression: No acute findings
--- NOTE | 2018-02-13 13:34 | Emergency Room Report ---
History of Present Illness General Chief Complaint: Generalized Weakness Source: Patient, Medical Record Present Illness HPI 87-year-old female presents ED for evaluation. Come from senior care facility. Nursing staff states that patient has had a reduced appetite times one day. Has been weak for a few days now. Has low-grade fever. nursing staff says patient has frequent UTIs. patient has dementia and is more lethargic than her baseline. However patient states she feels okay. Denies chest pain or shortness of breath. Denies nausea or vomiting. No other aggravating relieving factors. Denies any other associated symptoms Allergies: Coded Allergies: PENICILLINS (Verified Allergy, Severe, Rash, 01/31/16) Swelling Redness Rash Patient History Past Medical History: DM, CVA/TIA, dementia Past Surgical History: none Pertinent Family History: none Social History: Denies: smoking, alcohol use, drug use Now: No Immunizations: UTD Reviewed Nursing Documentation: PMH: Agreed; PSxH: Agreed Nursing Documentation-PMH Hx Cardiac Problems: Yes Hx COPD: No - Pneumonia Hx Diabetes: Yes Hx Cancer: No Hx Gastrointestinal Problems: Yes Hx Dialysis: No - UTI Hx Neurological Problems: Yes Hx Cerebrovascular Accident: Yes - unspecified cerebral infarction Hx Dementia: Yes Hx Alzheimer's Disease: Yes Hx Syncope: Yes Review of Systems All Other Systems: negative except mentioned in HPI Physical Exam Vital Signs Date Time Temp Pulse Resp B/P (MAP) Pulse Ox O2 Delivery O2 Flow Rate FiO2 02/13/18 11:24 98.3 105 22 175/68 97 Nasal Cannula 3.0 98.2 02/13/18 11:59 28 Sp02 EP Interpretation: reviewed, normal General Appearance: normal inspection, lethargic Head: normocephalic Eyes: bilateral eye normal inspection, bilateral eye PERRL ENT: normal ENT inspection Neck: normal inspection Respiratory: chest non-tender, lungs clear, normal breath sounds, speaking full sentences Cardiovascular #1: regular rate, rhythm, no edema Gastrointestinal: normal bowel sounds, non tender, soft, non-distended, no guarding, no rebound Rectal: deferred Genitourinary: no CVA tenderness Musculoskeletal: normal inspection Neurologic: other - lethargic Psychiatric: other - lethargic Skin: normal inspection Lymphatic: normal inspection Medical Decision Making Diagnostic Impression: Primary Impression: Dehydration Additional Impressions: UTI (urinary tract infection) Qualified Codes: N39.0 - Urinary tract infection, site not specified Alzheimer's dementia Qualified Codes: G30.9 - Alzheimer's disease, unspecified; F02.80 - Dementia in other diseases classified elsewhere without behavioral disturbance Hypertension Qualified Codes: I10 - Essential (primary) hypertension ER Course Hospital Course 87-year-old female presenting to ED with generalized weakness, poor appetite x 1 day Differential diagnoses include: Pneumonia, UTI, sepsis, dehydration, VT/ unstable angina Clinical course Patient placed on stretcher. On account advisor with stable vitals are ED course. After initial history and physical, I ordered labs, IV fluids, EKG, chest x-ray, blood cultures, UA. patient has temp 100.8 - given tylenol Labs - Na 148, noted leukocytosis, troponins negative, UA grossly positive for UTI EKG - NSR, no acute ischemic changes interpreted by sd CXR - no acute process Abx given. given IVFs. BP elevated - given clonidine patient is DNR, selective treatment. DR Obrien at bedside to evaluate Case discussed with Dr Obrien and they agreed to admit patient to their service for further care and support I feel this is a highly complex case requiring extensive working including EKG/ Rhythm strip, Xray/CT/US, Blood/urine lab work, repeat exams while in ED, and administration of strong opiates/narcotics for pain control, admission to hospital or close patient follow up. Diagnosis - dehydration, UTI, alzhimers, hypertension Patient admitted to floor in serious condition Labs Test 02/13/18 11:35 02/13/18 11:44 Urine Color Pale yellow Urine Appearance Slightly cloudy Urine pH 5 (4.5-8.0) Urine Specific [place] 1.015 (1.005-1.035) Urine Protein 2+ (NEGATIVE) Urine Glucose (UA) 4+ (NEGATIVE) Urine Ketones 1+ (NEGATIVE) Urine Blood 3+ (NEGATIVE) Urine Nitrite Positive (NEGATIVE) Urine Bilirubin Negative (NEGATIVE) Urine Urobilinogen Normal MG/DL (0.0-1.0) Urine Leukocyte Esterase 2+ (NEGATIVE) Urine RBC 2-4 /HPF (0 - 2) Urine WBC 30-40 /HPF (0 - 2) Urine Squamous Epithelial Cells Few /LPF (NONE/OCC) Urine Bacteria Many /HPF (NONE) Sodium Level 148 MMOL/L (136-145) Potassium Level 3.8 MMOL/L (3.5-5.1) Chloride Level 113 MMOL/L (98-107) Carbon Dioxide Level 25 MMOL/L (21-32) Anion Gap 10 mmol/L (5-15) Blood Urea Nitrogen 11 mg/dL (7-18) Creatinine 1.1 MG/DL (0.55-1.30) Estimat Glomerular Filtration Rate mL/min (>60) Glucose Level 294 MG/DL (74-106) Lactic Acid Level 1.40 mmol/L (0.4-2.0) Calcium Level 9.1 MG/DL (8.5-10.1) Total Bilirubin 0.7 MG/DL (0.2-1.0) Aspartate Amino Transf (AST/SGOT) 25 U/L (15-37) Alanine Aminotransferase (ALT/SGPT) 28 U/L (12-78) Alkaline Phosphatase 107 U/L (46-116) Total Creatine Kinase 43 U/L (26-308) Creatine Kinase MB < 0.5 NG/ML (0.0-3.6) Creatine Kinase MB Relative Index 1.1 Troponin I 0.000 ng/mL (0.000-0.056) Pro-B-Type Natriuretic Peptide 1157 pg/mL (0-125) Total Protein 7.4 G/DL (6.4-8.2) Albumin 2.4 G/DL (3.4-5.0) Globulin 5.0 g/dL Albumin/Globulin Ratio 0.5 (1.0-2.7) White Blood Count 11.5 K/UL (4.8-10.8) Red Blood Count 4.89 M/UL (4.20-5.40) Hemoglobin 14.4 G/DL (12.0-16.0) Hematocrit 44.5 % (37.0-47.0) Mean Corpuscular Volume 91 FL (80-99) Mean Corpuscular Hemoglobin 29.4 PG (27.0-31.0) Mean Corpuscular Hemoglobin Concent 32.3 G/DL (32.0-36.0) Red Cell Distribution Width 11.9 % (11.6-14.8) Platelet Count 272 K/UL (150-450) Mean Platelet Volume 6.1 FL (6.5-10.1) Neutrophils (%) (Auto) 76.7 % (45.0-75.0) Lymphocytes (%) (Auto) 15.8 % (20.0-45.0) Monocytes (%) (Auto) 6.3 % (1.0-10.0) Eosinophils (%) (Auto) 0.6 % (0.0-3.0) Basophils (%) (Auto) 0.6 % (0.0-2.0) EKG Diagnostic Results Rate: normal Rhythm: NSR ST Segments: no acute changes ASA given to the pt in ED: No Rhythm Strip Diag. Results EP Interpretation: yes Rhythm: NSR, no PVC's, no ectopy Chest X-Ray Diagnostic Results Chest X-Ray Diagnostic Results : Chest X-Ray Ordered: Yes # of Views/Limited/Complete: 1 View Indication: Shortness of Breath EP Interpretation: Yes Interpretation: no consolidation, no effusion, no pneumothorax, no acute cardiopulmonary disease Impression: No acute disease Electronically Signed by: Electronically signed by Valentin Diallo MD Last Vital Signs Date Time Temp Pulse Resp B/P (MAP) Pulse Ox O2 Delivery O2 Flow Rate FiO2 02/13/18 13:29 166/76 02/13/18 13:27 100.8 02/13/18 12:20 102 22 100 Nasal Cannula 2.0 28 Status: improved Disposition: ADMITTED INPATIENT Condition: Serious Referrals: Delon Sanchez MD (PCP) Valentin Diallo MD Feb 13, 2018 13:34
--- NOTE | 2018-02-13 13:37 | History & Physical ---
History and Physical History & Physicial urinary tract infection ? Pyelo Tachy Acute encephalopathy secondary to underlying infection, Hypoxia in ECF High Risk Aspiration Other conditions of dementia and diabetes mellitus. # [id number] Delon Sanchez MD Feb 13, 2018 13:37
[2018-02-13] MEDS ORDERED: cefTRIAXone 1 GM in NS 55 ML IVPB SCH (13:45)
[2018-02-13] MEDS ORDERED: Acetaminophen 650mg/20.3ml ORAL PRN (13:45)
[2018-02-13 14:25] VITALS: BP 151/60
--- NOTE | 2018-02-13 15:16 | Infectious Diseases Prog Note ---
Assessment/Plan Problems: (1) Acute pyelonephritis Assessment & Plan: will start cefepime empirically pending urine culture (2) Sepsis Assessment & Plan: will start cefepime and vancomycin empirically pending blood culture (3) Fever Assessment & Plan: due to the above , continue tylenol and wide spectrum antibiotics (4) Acute encephalopathy Assessment & Plan: due to the above , continue antibiotics and hydration, avoid sedatives (5) At high risk for aspiration Assessment & Plan: keep NPO for now, with aspiration precaution, keep HOB > 30 degree all the time, swallow eval once fully awake Subjective Allergies: Coded Allergies: PENICILLINS (Verified Allergy, Severe, Rash, 01/31/16) Swelling Redness Rash Objective Vital Signs Last 24 Hour Vital Signs Date Time Temp Pulse Resp B/P (MAP) Pulse Ox O2 Delivery O2 Flow Rate FiO2 02/13/18 14:25 99.8 107 21 151/60 100 Nasal Cannula 2.0 28 99.8 02/13/18 13:29 166/76 02/13/18 13:27 100.8 02/13/18 12:50 99.8 02/13/18 12:20 102 22 100 Nasal Cannula 2.0 28 02/13/18 12:20 100.8 02/13/18 12:01 105 26 Nasal Cannula 2.0 28 02/13/18 11:59 100.8 98 22 166/76 99 Room Air 3.0 100.8 02/13/18 11:59 105 26 98 Nasal Cannula 2.0 28 02/13/18 11:24 98.3 105 22 175/68 97 Nasal Cannula 3.0 98.2 Height (Feet): 5 Height (Inches): 6.00 Weight (Pounds): 185 Laboratory Tests Test 02/13/18 11:30 02/13/18 11:35 02/13/18 11:44 C-Reactive Protein, Quantitative 11.7 mg/dL (0.00-0.90) H Urine Color Pale yellow Urine Appearance Slightly cloudy Urine pH 5 (4.5-8.0) Urine Specific [place] 1.015 (1.005-1.035) Urine Protein 2+ (NEGATIVE) H Urine Glucose (UA) 4+ (NEGATIVE) H Urine Ketones 1+ (NEGATIVE) H Urine Blood 3+ (NEGATIVE) H Urine Nitrite Positive (NEGATIVE) H Urine Bilirubin Negative (NEGATIVE) Urine Urobilinogen Normal MG/DL (0.0-1.0) Urine Leukocyte Esterase 2+ (NEGATIVE) H Urine RBC 2-4 /HPF (0 - 2) H Urine WBC 30-40 /HPF (0 - 2) H Urine Squamous Epithelial Cells Few /LPF (NONE/OCC) Urine Bacteria Many /HPF (NONE) H Sodium Level 148 MMOL/L (136-145) H Potassium Level 3.8 MMOL/L (3.5-5.1) Chloride Level 113 MMOL/L (98-107) H Carbon Dioxide Level 25 MMOL/L (21-32) Anion Gap 10 mmol/L (5-15) Blood Urea Nitrogen 11 mg/dL (7-18) Creatinine 1.1 MG/DL (0.55-1.30) Estimat Glomerular Filtration Rate mL/min (>60) Glucose Level 294 MG/DL (74-106) H Lactic Acid Level 1.40 mmol/L (0.4-2.0) Calcium Level 9.1 MG/DL (8.5-10.1) Total Bilirubin 0.7 MG/DL (0.2-1.0) Aspartate Amino Transf (AST/SGOT) 25 U/L (15-37) Alanine Aminotransferase (ALT/SGPT) 28 U/L (12-78) Alkaline Phosphatase 107 U/L (46-116) Total Creatine Kinase 43 U/L (26-308) Creatine Kinase MB < 0.5 NG/ML (0.0-3.6) Creatine Kinase MB Relative Index 1.1 Troponin I 0.000 ng/mL (0.000-0.056) Pro-B-Type Natriuretic Peptide 1157 pg/mL (0-125) H Total Protein 7.4 G/DL (6.4-8.2) Albumin 2.4 G/DL (3.4-5.0) L Globulin 5.0 g/dL Albumin/Globulin Ratio 0.5 (1.0-2.7) L White Blood Count 11.5 K/UL (4.8-10.8) H Red Blood Count 4.89 M/UL (4.20-5.40) Hemoglobin 14.4 G/DL (12.0-16.0) Hematocrit 44.5 % (37.0-47.0) Mean Corpuscular Volume 91 FL (80-99) Mean Corpuscular Hemoglobin 29.4 PG (27.0-31.0) Mean Corpuscular Hemoglobin Concent 32.3 G/DL (32.0-36.0) Red Cell Distribution Width 11.9 % (11.6-14.8) Platelet Count 272 K/UL (150-450) Mean Platelet Volume 6.1 FL (6.5-10.1) L Neutrophils (%) (Auto) 76.7 % (45.0-75.0) H Lymphocytes (%) (Auto) 15.8 % (20.0-45.0) L Monocytes (%) (Auto) 6.3 % (1.0-10.0) Eosinophils (%) (Auto) 0.6 % (0.0-3.0) Basophils (%) (Auto) 0.6 % (0.0-2.0) Current Medications Medications (Trade) Dose Ordered Sig/Олег Route PRN Reason Start Time Stop Time Status Last Admin Dose Admin Acetaminophen (Tylenol) 650 mg Q6H PRN ORAL Prn Headache/Temp > 101 02/13/18 13:45 03/15/18 13:44 UNV Benazepril HCl (Lotensin) 10 mg Q12HR ORAL 02/13/18 21:00 03/15/18 20:59 UNV Ceftriaxone Sodium 1 gm/ Sodium Chloride 55 ml @ 110 mls/hr Q24HRS IVPB 02/13/18 13:45 02/20/18 13:44 UNV Clonidine HCl (Catapres Tab) 0.1 mg Q6H PRN ORAL bp over 160 syst 02/13/18 13:50 03/15/18 13:49 Clopidogrel Bisulfate (Plavix) 75 mg DAILY ORAL 02/14/18 09:00 03/16/18 08:59 UNV Docusate Sodium (Colace) 100 mg TID ORAL 02/13/18 18:00 03/15/18 17:59 UNV Donepezil HCl (Aricept) 10 mg QHS ORAL 02/13/18 21:00 03/15/18 20:59 UNV Heparin Sodium (Porcine) (Heparin 5000 units/ml) 5,000 units EVERY 12 HOURS SUBQ 02/13/18 21:00 03/15/18 20:59 UNV Metformin HCl (Glucophage) 500 mg TWICE A DAY ORAL 02/13/18 18:00 03/15/18 17:59 UNV Pantoprazole (Protonix) 40 mg BID ORAL 02/13/18 18:00 03/15/18 17:59 UNV Sodium Chloride 1,000 ml @ 50 mls/hr Q20H IV 02/13/18 14:00 03/15/18 13:59 UNV Alicja Webster M.D. Feb 13, 2018 15:16
[2018-02-13 15:32] VITALS: BP 143/75
[2018-02-13] MEDS ORDERED: Cefepime HCl 2 GM in D5W 55 ML IVPB SCH (17:00)
[2018-02-13] MEDS: metFORMIN 500mg tab ORAL SCH (17:06)
[2018-02-13] MEDS: Docusate 100mg cap ORAL SCH (17:06)
[2018-02-13] MEDS ORDERED: Vancomycin 1250mg/D5W 250ml IVPB SCH (18:00)
[2018-02-13] MEDS: Donepezil 10mg tab ORAL SCH (20:26)
[2018-02-13] MEDS: Benazepril 10mg tab ORAL SCH (20:26)
[2018-02-13] MEDS: Heparin 5000 units/ml inj SUBQ SCH (20:28)
[2018-02-13 21:00] VITALS: BP 154/79
[2018-02-14 04:00] VITALS: BP 160/90
[2018-02-14] MEDS: Cefepime HCl 2 GM in D5W 55 ML IVPB SCH (04:11)
[2018-02-14 06:09] LABS: BASOPHILS % (AUTO) 0.4 % (0.0-2.0); EOSINOPHILS % (AUTO) 1.9 % (0.0-3.0); HEMATOCRIT 39.9 % (37.0-47.0); LYMPHOCYTES % (AUTO) 13.2 % (20.0-45.0); MEAN CORPUSCULAR VOLUME 91 FL (80-99); MONOCYTES % (AUTO) 5.3 % (1.0-10.0); NEUTROPHILS % (AUTO) 79.1 % (45.0-75.0); PLATELET COUNT 229 K/UL (150-450); RED BLOOD COUNT 4.37 M/UL (4.20-5.40); RED CELL DISTRIBUTION WIDTH 11.9 % (11.6-14.8); WHITE BLOOD COUNT 9.8 K/UL (4.8-10.8)
[2018-02-14 06:20] LABS: ALANINE AMINOTRANSFERASE 22 U/L (12-78); ALBUMIN/GLOBULIN RATIO 0.4 (1.0-2.7); ALKALINE PHOSPHATASE 93 U/L (46-116); ANION GAP 8 mmol/L (5-15); ASPARTATE AMINO TRANSFERASE 15 U/L (15-37); BILIRUBIN,TOTAL 0.8 MG/DL (0.2-1.0); BLOOD UREA NITROGEN 11 mg/dL (7-18); CALCIUM 8.3 MG/DL (8.5-10.1); CARBON DIOXIDE 26 MMOL/L (21-32); CHLORIDE 112 MMOL/L (98-107); CHOLESTEROL 160 MG/DL (< 200); CREATININE 1.2 MG/DL (0.55-1.30); GAMMA GLUTAMYL TRANSPEPTIDASE 21 U/L (5-85); HDL CHOLESTEROL 24 MG/DL (40-60); PHOSPHORUS 2.6 MG/DL (2.5-4.9); POTASSIUM 3.4 MMOL/L (3.5-5.1); SODIUM 146 MMOL/L (136-145); TRIGLYCERIDES 169 MG/DL (30-150)
[2018-02-14 06:30] VITALS: BP 145/75
[2018-02-14 09:35] VITALS: BP 142/85
[2018-02-14] MEDS: Docusate 100mg cap ORAL SCH ×3 (09:42→17:44)
[2018-02-14] MEDS: Benazepril 10mg tab ORAL SCH ×2 (09:42→20:31)
[2018-02-14] MEDS: metFORMIN 500mg tab ORAL SCH ×2 (09:42→17:44)
[2018-02-14] MEDS: Heparin 5000 units/ml inj SUBQ SCH ×2 (09:44→20:35)
[2018-02-14] MEDS: Nateglinide 60mg tab ORAL SCH ×2 (11:58→17:44)
[2018-02-14 12:00] VITALS: BP 146/79
--- NOTE | 2018-02-14 15:25 | General Progress Note ---
Assessment/Plan Problem List: (1) Acute pyelonephritis ICD Codes: N10 - Acute pyelonephritis SNOMED: 07601386 (2) Sepsis ICD Codes: A41.9 - Sepsis, unspecified organism SNOMED: 02617772 (3) At high risk for aspiration ICD Codes: Z91.89 - Other specified personal risk factors, not elsewhere classified SNOMED: 449668329 (4) Acute encephalopathy ICD Codes: G93.40 - Encephalopathy, unspecified SNOMED: 86744484, 978946655 (5) Alzheimer's dementia ICD Codes: G30.9 - Alzheimer's disease, unspecified SNOMED: 29964719 Qualifiers: Qualified Codes: G30.9 - Alzheimer's disease, unspecified; F02.80 - Dementia in other diseases classified elsewhere without behavioral disturbance (6) Hypertension ICD Codes: I10 - Essential (primary) hypertension SNOMED: 05009584 Qualifiers: Qualified Codes: I10 - Essential (primary) hypertension (7) Diabetes type 2, uncontrolled ICD Codes: E11.65 - Type 2 diabetes mellitus with hyperglycemia SNOMED: 708389083 Status: stable, other - slightly improved Status Narrative urinary tract infection ? Pyelo Tachy Acute encephalopathy secondary to underlying infection, Hypoxia in ECF High Risk Aspiration Other conditions of dementia and diabetes mellitus. Assessment/Plan hydrate- st eval start diet antibiotics per ID correct electrolytes bp and bs check per orders Subjective ROS Limited/Unobtainable: No Constitutional: Reports: malaise Allergies: Coded Allergies: PENICILLINS (Verified Allergy, Severe, Rash, 01/31/16) Swelling Redness Rash Objective Last 24 Hour Vital Signs Date Time Temp Pulse Resp B/P (MAP) Pulse Ox O2 Delivery O2 Flow Rate FiO2 02/14/18 12:00 97.9 85 20 146/79 (101) 97 97.9 85 02/14/18 09:42 142/85 02/14/18 09:35 97.8 91 20 142/85 (104) 98 97.8 02/14/18 09:00 Room Air 02/14/18 06:30 95 145/75 (98) 02/14/18 05:52 160/90 02/14/18 04:00 98.6 96 20 160/90 (113) 98 98.6 02/13/18 21:00 Room Air 02/13/18 21:00 98.5 88 20 154/79 (104) 97 98.5 02/13/18 20:26 154/79 02/13/18 16:33 Room Air 02/13/18 15:41 99.8 94 20 143/75 100 Nasal Cannula 2.0 28 99.8 02/13/18 15:32 99.8 94 20 143/75 100 Nasal Cannula 2.0 28 99.8 Intake and Output 02/13/18 02/14/18 19:00 07:00 Intake Total 1200 ml 550 ml Output Total 400 ml Balance 1200 ml 150 ml Intake IV Total 1200 ml 550 ml Output Urine Total 400 ml # Voids 4 # Bowel Movements 2 1 Laboratory Tests 02/14/18 05:40: White Blood Count 9.8, Red Blood Count 4.37, Hemoglobin 13.0, Hematocrit 39.9, Mean Corpuscular Volume 91, Mean Corpuscular Hemoglobin 29.8, Mean Corpuscular Hemoglobin Concent 32.6, Red Cell Distribution Width 11.9, Platelet Count 229, Mean Platelet Volume 5.6L, Neutrophils (%) (Auto) 79.1H, Lymphocytes (%) (Auto) 13.2L, Monocytes (%) (Auto) 5.3, Eosinophils (%) (Auto) 1.9, Basophils (%) (Auto ) 0.4, Sodium Level 146H, Potassium Level 3.4L, Chloride Level 112H, Carbon Dioxide Level 26, Anion Gap 8, Blood Urea Nitrogen 11, Creatinine 1.2, Estimat Glomerular Filtration Rate , Glucose Level 250H, Hemoglobin A1c 9.1H, Uric Acid 3.9, Calcium Level 8.3L, Phosphorus Level 2.6, Magnesium Level 1.7L, Total Bilirubin 0.8, Gamma Glutamyl Transpeptidase 21, Aspartate Amino Transf (AST/ SGOT) 15, Alanine Aminotransferase (ALT/SGPT) 22, Alkaline Phosphatase 93, Pro-B -Type Natriuretic Peptide 833H, Total Protein 6.5, Albumin 2.0L, Globulin 4.5, Albumin/Globulin Ratio 0.4L, Triglycerides Level 169H, Cholesterol Level 160, LDL Cholesterol 109H, HDL Cholesterol 24L, Cholesterol/HDL Ratio 6.7H, Thyroid Stimulating Hormone (TSH) 2.324 Height (Feet): 5 Height (Inches): 6.00 Weight (Pounds): 185 General Appearance: no apparent distress Cardiovascular: tachycardia Respiratory/Chest: decreased breath sounds Abdomen: soft Objective no change Delon Sanchez MD Feb 14, 2018 15:25
--- NOTE | 2018-02-14 15:45 | Infectious Diseases Prog Note ---
Assessment/Plan Problems: (1) Acute pyelonephritis Assessment & Plan: continue cefepime empirically pending urine culture , obtain bladder scan to rule out retention (2) Sepsis Assessment & Plan: continue cefepime and vancomycin empirically pending blood culture (3) Fever Assessment & Plan: due to the above , continue tylenol and wide spectrum antibiotics (4) Acute encephalopathy Assessment & Plan: due to the above , improving, continue antibiotics and hydration, avoid sedatives (5) At high risk for aspiration Assessment & Plan: keep NPO for now, with aspiration precaution, keep HOB > 30 degree all the time, swallow eval once fully awake Subjective ROS Limited/Unobtainable: Yes Allergies: Coded Allergies: PENICILLINS (Verified Allergy, Severe, Rash, 01/31/16) Swelling Redness Rash Subjective she as more awake and alert but not responsive to verbal commands, afebrile, friend at the bedside Objective Vital Signs Last 24 Hour Vital Signs Date Time Temp Pulse Resp B/P (MAP) Pulse Ox O2 Delivery O2 Flow Rate FiO2 02/14/18 12:00 97.9 85 20 146/79 (101) 97 97.9 85 02/14/18 09:42 142/85 02/14/18 09:35 97.8 91 20 142/85 (104) 98 97.8 02/14/18 09:00 Room Air 02/14/18 06:30 95 145/75 (98) 02/14/18 05:52 160/90 02/14/18 04:00 98.6 96 20 160/90 (113) 98 98.6 02/13/18 21:00 Room Air 02/13/18 21:00 98.5 88 20 154/79 (104) 97 98.5 02/13/18 20:26 154/79 02/13/18 16:33 Room Air Height (Feet): 5 Height (Inches): 6.00 Weight (Pounds): 185 General Appearance: WD/WN, no acute distress HEENT: normocephalic, atraumatic, anicteric, mucous membranes moist, PERRL, pharynx normal, supple, no JVD Respiratory/Chest: chest wall non-tender, normal breath sounds, no respiratory distress, no accessory muscle use, decreased breath sounds Cardiovascular: normal peripheral pulses, normal rate, regular rhythm, no gallop/murmur, no JVD Abdomen: normal bowel sounds, soft, non tender, no organomegaly, non distended , no mass, no scars Extremities: no cyanosis, no clubbing Skin: no rash, no lesions, no ulcers Neurologic/Psychiatric: alert, unresponsiveness Lymphatic: no neck adenopathy, no groin adenopathy Musculoskeletal: normal muscle bulk, no effusion Microbiology Date/Time Source Procedure Growth Status 02/13/18 11:35 Urine,Clean Catch Urine Culture - Preliminary Gram Negative Bacillus 1 Resulted 02/13/18 12:20 Rectum VRE Culture Pending Resulted 02/13/18 12:20 Rectum - Preliminary Resulted Laboratory Tests Test 02/14/18 05:40 White Blood Count 9.8 K/UL (4.8-10.8) Red Blood Count 4.37 M/UL (4.20-5.40) Hemoglobin 13.0 G/DL (12.0-16.0) Hematocrit 39.9 % (37.0-47.0) Mean Corpuscular Volume 91 FL (80-99) Mean Corpuscular Hemoglobin 29.8 PG (27.0-31.0) Mean Corpuscular Hemoglobin Concent 32.6 G/DL (32.0-36.0) Red Cell Distribution Width 11.9 % (11.6-14.8) Platelet Count 229 K/UL (150-450) Mean Platelet Volume 5.6 FL (6.5-10.1) L Neutrophils (%) (Auto) 79.1 % (45.0-75.0) H Lymphocytes (%) (Auto) 13.2 % (20.0-45.0) L Monocytes (%) (Auto) 5.3 % (1.0-10.0) Eosinophils (%) (Auto) 1.9 % (0.0-3.0) Basophils (%) (Auto) 0.4 % (0.0-2.0) Sodium Level 146 MMOL/L (136-145) H Potassium Level 3.4 MMOL/L (3.5-5.1) L Chloride Level 112 MMOL/L (98-107) H Carbon Dioxide Level 26 MMOL/L (21-32) Anion Gap 8 mmol/L (5-15) Blood Urea Nitrogen 11 mg/dL (7-18) Creatinine 1.2 MG/DL (0.55-1.30) Estimat Glomerular Filtration Rate mL/min (>60) Glucose Level 250 MG/DL (74-106) H Hemoglobin A1c 9.1 % (4.3-6.0) H Uric Acid 3.9 MG/DL (2.6-7.2) Calcium Level 8.3 MG/DL (8.5-10.1) L Phosphorus Level 2.6 MG/DL (2.5-4.9) Magnesium Level 1.7 MG/DL (1.8-2.4) L Total Bilirubin 0.8 MG/DL (0.2-1.0) Gamma Glutamyl Transpeptidase 21 U/L (5-85) Aspartate Amino Transf (AST/SGOT) 15 U/L (15-37) Alanine Aminotransferase (ALT/SGPT) 22 U/L (12-78) Alkaline Phosphatase 93 U/L (46-116) C-Reactive Protein, Quantitative Pending Pro-B-Type Natriuretic Peptide 833 pg/mL (0-125) H Total Protein 6.5 G/DL (6.4-8.2) Albumin 2.0 G/DL (3.4-5.0) L Globulin 4.5 g/dL Albumin/Globulin Ratio 0.4 (1.0-2.7) L Triglycerides Level 169 MG/DL (30-150) H Cholesterol Level 160 MG/DL (< 200) LDL Cholesterol 109 mg/dL (<100) H HDL Cholesterol 24 MG/DL (40-60) L Cholesterol/HDL Ratio 6.7 (3.3-4.4) H Thyroid Stimulating Hormone (TSH) 2.324 uiU/mL (0.358-3.740) Current Medications Medications (Trade) Dose Ordered Sig/Олег Route PRN Reason Start Time Stop Time Status Last Admin Dose Admin Acetaminophen (Tylenol) 650 mg Q6H PRN ORAL Headache/Temp > 101 02/13/18 13:45 03/15/18 13:44 Benazepril HCl (Lotensin) 10 mg Q12HR ORAL 02/13/18 21:00 03/15/18 20:59 02/14/18 09:42 Cefepime HCl 2 gm/ Dextrose 55 ml @ 110 mls/hr Q24H IVPB 02/14/18 05:00 02/21/18 04:59 02/14/18 04:11 Clonidine HCl (Catapres Tab) 0.1 mg Q6H PRN ORAL bp over 160 syst 02/13/18 13:50 03/15/18 13:49 02/14/18 05:52 Clopidogrel Bisulfate (Plavix) 75 mg DAILY ORAL 02/14/18 09:00 03/16/18 08:59 02/14/18 09:42 Dextrose (Dextrose 50%) 25 ml Q30M PRN IV Hypoglycemia 02/14/18 15:30 03/16/18 15:29 Dextrose (Dextrose 50%) 50 ml Q30M PRN IV Hypoglycemia 02/14/18 15:30 03/16/18 15:29 Docusate Sodium (Colace) 100 mg TID ORAL 02/13/18 18:00 03/15/18 17:59 02/14/18 09:42 Donepezil HCl (Aricept) 10 mg QHS ORAL 02/13/18 21:00 03/15/18 20:59 02/13/18 20:26 Heparin Sodium (Porcine) (Heparin 5000 units/ml) 5,000 units EVERY 12 HOURS SUBQ 02/13/18 21:00 03/15/18 20:59 02/14/18 09:44 Insulin Aspart (NovoLOG) BEFORE MEALS AND HS SUBQ 02/14/18 16:30 03/16/18 16:29 Metformin HCl (Glucophage) 500 mg TWICE A DAY ORAL 02/13/18 18:00 03/15/18 17:59 02/14/18 09:42 Nateglinide (Starlix) 60 mg TIAC ORAL 02/14/18 11:30 03/16/18 11:29 02/14/18 11:58 Pantoprazole (Protonix) 40 mg BID ORAL 02/13/18 18:00 03/15/18 17:59 02/14/18 09:42 Sodium Chloride 1,000 ml @ 50 mls/hr Q20H IV 02/13/18 14:00 03/15/18 13:59 02/14/18 11:58 Vancomycin HCl (Vanco rx to dose) 1 ea DAILY PRN MISC Per rx protocol 02/13/18 15:15 03/15/18 15:14 Vancomycin/Sodium Chloride 250 ml @ 166.667 mls/hr Q24H IVPB 02/14/18 18:00 10/10/18 17:59 Alicja Webster M.D. Feb 14, 2018 15:45
[2018-02-14 16:00] VITALS: BP 149/78
[2018-02-14] MEDS: NovoLOG Insulin Flexpen SUBQ SCH ×2 (17:45→20:37)
[2018-02-14] MEDS ORDERED: Vancomycin 750mg/NS 250ml IVPB SCH (18:00)
--- NOTE | 2018-02-14 19:45 | Consultation ---
DATE OF CONSULTATION: 02/14/2018 INFECTIOUS DISEASES CONSULTATION CONSULTING PHYSICIAN: Alicja Webster M.D. REQUESTING PHYSICIAN: Delon Sanchez M.D. REASON FOR CONSULTATION: Acute pyelonephritis with possible sepsis. Recommendation for antibiotics treatment. HISTORY OF PRESENT ILLNESS: The patient is an 87-year-old, female with past medical history of diabetes, CVA, dementia lives who lives at [facility] was sent from there to the emergency room at [facility] for altered mental status, poor oral intake and weakness for couple of days and low-grade fever. The patient had history of frequent urinary tract infection and she normally had baseline dementia but she was more lethargic than her normal baseline. The patient had no nausea or vomiting. No cough or shortness of breath. No other associated symptoms. She had extensive workup in the emergency room which revealed evidence of urine tract infection. Her temperature was 98.3 with pulse of 105 and elevated white count concerning for sepsis so she was started on ceftriaxone and Infectious Diseases consultation was requested for antibiotics treatment and further management. As of note, the patient was lethargic and nonverbal, cannot provide any history. History was mainly obtained from the medical record and nursing staff. REVIEW OF SYSTEMS: Unable to obtain, the patient is poor historian. PAST MEDICAL HISTORY: Significant for coronary artery disease, pneumonia, diabetes, GERD, UTI, CVA, dementia, Alzheimer disease, and syncope. PAST SURGICAL HISTORY: Not on record. ALLERGIES: She is allergic to penicillin with swelling, redness, and rash. MEDICATIONS: The patient was started on ceftriaxone. For the rest of her medications, please refer to MAR. FAMILY HISTORY: Unable to obtain. SOCIAL HISTORY: She lives in [facility]. No recent drugs, tobacco, or alcohol. PHYSICAL EXAMINATION: VITAL SIGNS: Temperature 99.8, pulse 94, respirations 20, blood pressure 143/75, saturation 100% on nasal cannula 2 liters. GENERAL: Elderly female, obese, lying in bed, altered and responsive, not in acute distress. HEENT: Normocephalic and atraumatic. Pupils are reactive to light. Moist oral mucosa. No exudate or thrush. NECK: Supple. No lymphadenopathy. CARDIOVASCULAR: She is tachycardic. S1 and S2 normal. No murmur or gallop. LUNGS: Clear bilaterally. Diminished breathing sounds at the bases. No wheezing or rhonchi. ABDOMEN: Soft, nontender, nondistended. Normal bowel sounds. No hepatosplenomegaly or ascites. EXTREMITIES: No edema or cyanosis. SKIN: No rash. No hives. LABORATORY AND DIAGNOSTIC DATA: Labs showed white count of 11.5, hemoglobin of 14.4, platelet count 272. BUN of 11 and creatinine of 1.2. Hemoglobin A1c of 9.1. AST of 15 and ALT 22. Urinalysis showed +2 leukocyte esterase, WBC 30 to 40, and many urine bacteria. Microbiology, blood culture and urine culture both pending. IMAGING: Chest x-ray showed no acute findings. ASSESSMENT AND RECOMMENDATION: 1. Acute pyelonephritis. We will start cefepime empiric coverage. Pending urine culture results. We will order a bladder scan to rule out obstruction. 2. Sepsis with leukocytosis due to the above. We will start cefepime and vancomycin empirically. Pending blood culture. 3. Fever due to the above. Continue Tylenol and wide-spectrum antibiotics. 4. Acute encephalopathy due to the above. Continue antibiotics and hydration. Avoid sedative. 5. High risk for aspiration. Keep NPO with aspiration precautions. Keep head of bed more than 30 degree all the time. Swallow evaluation once fully awake. Thank you for the consult. ID will continue to follow. Alicja Webster M.D. DR: Merly JOB#: [id number] CC:
--- NOTE | 2018-02-14 19:45 | History and Physical Report ---
DATE OF ADMISSION: 02/13/2018 HISTORY OF PRESENT ILLNESS: The patient is an 87-year-old female, who is a resident of [facility]. I was called that the patient was complaining of nausea, did not need breakfast, was running low-grade fever, and somewhat hypoxic. The crew in the care home asked me to start the patient on oxygen, however, I summoned the patient to come to emergency room here at [facility]. After initial evaluation, the patient was found to be tachycardic with evidence of UTI and pyelonephritis. The patient is being admitted for further management. PAST MEDICAL HISTORY: Significant for: 1. Diabetes. 2. Hypertension. 3. Dementia. 4. Urinary incontinence. 5. Previous kidney infection. 6. Pneumonia and the patient is aspirated, aspiration prone. PHYSICAL EXAMINATION: GENERAL: VITAL SIGNS: The patient was seen in the emergency room, in the room #5. When seen, temperature was 98.3, pulse rate of 105, respiratory rate of 22, and blood pressure of 175/68, on nasal cannula 3 L. Pulse oximetry was 97%. GENERAL: The patient was lethargic. HEENT: Head is normocephalic. Sclerae are nonicteric. NECK: Rigid to all directions. HEART: Tachycardic. LUNGS: Poor inspiratory effort. Decreased breath sounds over the bases. ABDOMEN: Slightly obese and soft. Bowel sounds present. EXTREMITIES: Lower extremities, no edema. CENTRAL NERVOUS SYSTEM: The patient occasionally moves lower extremities, however, the patient is basically bed-bound and wheelchair-bound. INITIAL LABORATORY DATA: White blood cells were 11.5 and the sodium 148, glucose 294, and albumin 2.4. Urine shows 40 white blood cells, 2+ leukocyte esterase, and 4+ glucose. IMPRESSION: The patient was thought to have pyelonephritis and sepsis in view of tachycardia and overall malaise feeling. The patient also have worsening encephalopathy, which was due to possibly underlying infection. The patient was hypoxic in [facility] care facility and is high-risk aspiration. Other conditions are dementia, diabetes mellitus, and some functional quadriplegia. PLAN: The patient started to be on NPO and intravenous hydration. Since penicillin allergy, the patient was started on cefepime and vancomycin by the ID customer service and sales consultant, pending the cultures. Meanwhile, we will monitor the blood sugar and the blood pressure, and continue to hydrate, monitor renal parameters, and obtain ST evaluation. According to how the patient's condition evolves, we will make the proper changes in our future management. Delon Sanchez M.D. DR: LUIS JOB#: [id number] CC:
[2018-02-14 20:00] VITALS: BP 154/76
[2018-02-14] MEDS: Donepezil 10mg tab ORAL SCH (20:31)
[2018-02-15] VITALS: BP 145/61
[2018-02-15 04:00] VITALS: BP 148/84
[2018-02-15] MEDS: Cefepime HCl 2 GM in D5W 55 ML IVPB SCH (04:59)
[2018-02-15] MEDS: Nateglinide 60mg tab ORAL SCH (06:07)
[2018-02-15] MEDS: NovoLOG Insulin Flexpen SUBQ SCH ×4 (06:08→20:24)
[2018-02-15 06:29] LABS: BASOPHILS % (AUTO) 0.3 % (0.0-2.0); EOSINOPHILS % (AUTO) 4.5 % (0.0-3.0); HEMATOCRIT 40.4 % (37.0-47.0); HEMOGLOBIN 13.6 G/DL (12.0-16.0); LYMPHOCYTES % (AUTO) 20.1 % (20.0-45.0); MEAN CORPUSCULAR VOLUME 91 FL (80-99); MONOCYTES % (AUTO) 5.7 % (1.0-10.0); NEUTROPHILS % (AUTO) 69.4 % (45.0-75.0); PLATELET COUNT 234 K/UL (150-450); RED BLOOD COUNT 4.43 M/UL (4.20-5.40); WHITE BLOOD COUNT 9.1 K/UL (4.8-10.8)
[2018-02-15 07:02] LABS: CHLORIDE 113 MMOL/L (98-107); POTASSIUM 3.7 MMOL/L (3.5-5.1); SODIUM 147 MMOL/L (136-145)
[2018-02-15 07:35] LABS: ALANINE AMINOTRANSFERASE 21 U/L (12-78); ALBUMIN/GLOBULIN RATIO 0.5 (1.0-2.7); ALKALINE PHOSPHATASE 93 U/L (46-116); ANION GAP 12 mmol/L (5-15); ASPARTATE AMINO TRANSFERASE 18 U/L (15-37); BILIRUBIN,TOTAL 0.5 MG/DL (0.2-1.0); BLOOD UREA NITROGEN 12 mg/dL (7-18); CALCIUM 8.3 MG/DL (8.5-10.1); CARBON DIOXIDE 22 MMOL/L (21-32); CREATININE 1.1 MG/DL (0.55-1.30); PHOSPHORUS 2.6 MG/DL (2.5-4.9)
[2018-02-15 08:00] VITALS: BP 151/79
--- NOTE | 2018-02-15 10:16 | General Progress Note ---
Assessment/Plan Problem List: (1) Acute pyelonephritis ICD Codes: N10 - Acute pyelonephritis SNOMED: 42154053 (2) Sepsis ICD Codes: A41.9 - Sepsis, unspecified organism SNOMED: 12171017 (3) At high risk for aspiration ICD Codes: Z91.89 - Other specified personal risk factors, not elsewhere classified SNOMED: 334861468 (4) Acute encephalopathy ICD Codes: G93.40 - Encephalopathy, unspecified SNOMED: 35955092, 639119436 (5) Alzheimer's dementia ICD Codes: G30.9 - Alzheimer's disease, unspecified SNOMED: 44551558 Qualifiers: Qualified Codes: G30.9 - Alzheimer's disease, unspecified; F02.80 - Dementia in other diseases classified elsewhere without behavioral disturbance (6) Hypertension ICD Codes: I10 - Essential (primary) hypertension SNOMED: 08858142 Qualifiers: Qualified Codes: I10 - Essential (primary) hypertension (7) Diabetes type 2, uncontrolled ICD Codes: E11.65 - Type 2 diabetes mellitus with hyperglycemia SNOMED: 815566225 Status: stable Assessment/Plan hydrate- st eval start diet antibiotics per ID correct electrolytes bp and bs check per orders Subjective ROS Limited/Unobtainable: No Constitutional: Reports: malaise Allergies: Coded Allergies: PENICILLINS (Verified Allergy, Severe, Rash, 01/31/16) Swelling Redness Rash Objective Last 24 Hour Vital Signs Date Time Temp Pulse Resp B/P (MAP) Pulse Ox O2 Delivery O2 Flow Rate FiO2 02/15/18 04:00 98.2 85 20 148/84 (105) 96 98.2 02/15/18 00:00 98.7 98 20 145/61 (89) 95 98.7 02/14/18 21:00 Room Air 02/14/18 20:31 154/76 02/14/18 20:00 98.2 95 20 154/76 (102) 96 98.2 02/14/18 16:00 97.1 99 20 149/78 (101) 97 97.1 85 02/14/18 12:00 97.9 85 20 146/79 (101) 97 97.9 85 Intake and Output 02/14/18 02/15/18 19:00 07:00 Intake Total 250 ml 605 ml Output Total 25 ml 600 ml Balance 225 ml 5 ml Intake IV Total 250 ml 605 ml Output Urine Total 600 ml Post Void Residual 25 ml Bladder Scan Volume Amount 11-30 ml # Voids 3 # Bowel Movements 2 2 Laboratory Tests 02/15/18 05:40: White Blood Count 9.1, Red Blood Count 4.43, Hemoglobin 13.6, Hematocrit 40.4, Mean Corpuscular Volume 91, Mean Corpuscular Hemoglobin 30.6, Mean Corpuscular Hemoglobin Concent 33.5, Red Cell Distribution Width 12.0, Platelet Count 234, Mean Platelet Volume 5.7L, Neutrophils (%) (Auto) 69.4, Lymphocytes (%) (Auto) 20.1, Monocytes (%) (Auto) 5.7, Eosinophils (%) (Auto) 4.5H, Basophils (%) (Auto ) 0.3, Sodium Level 147H, Potassium Level 3.7, Chloride Level 113H, Carbon Dioxide Level 22, Anion Gap 12, Blood Urea Nitrogen 12, Creatinine 1.1, Estimat Glomerular Filtration Rate , Glucose Level 183H, Calcium Level 8.3L, Phosphorus Level 2.6, Magnesium Level 1.8, Total Bilirubin 0.5, Aspartate Amino Transf (AST /SGOT) 18, Alanine Aminotransferase (ALT/SGPT) 21, Alkaline Phosphatase 93, Pro- B-Type Natriuretic Peptide 1088H, Total Protein 5.9L, Albumin 2.0L, Globulin 3.9 , Albumin/Globulin Ratio 0.5L Height (Feet): 5 Height (Inches): 6.00 Weight (Pounds): 185 General Appearance: other - more responsive Cardiovascular: tachycardia - slightly Respiratory/Chest: decreased breath sounds Abdomen: soft Objective no change Delon Sanchez MD Feb 15, 2018 10:16
[2018-02-15] MEDS: metFORMIN 500mg tab ORAL SCH ×2 (10:36→18:53)
[2018-02-15] MEDS: Docusate 100mg cap ORAL SCH ×3 (10:36→18:53)
[2018-02-15] MEDS: Benazepril 10mg tab ORAL SCH ×2 (10:37→20:23)
[2018-02-15] MEDS: Heparin 5000 units/ml inj SUBQ SCH ×2 (10:38→20:24)
[2018-02-15 12:00] VITALS: BP 154/88
--- NOTE | 2018-02-15 12:01 | Consultation ---
History of Present Illness General Date patient seen: Feb 15, 2018 Chief Complaint: Generalized Weakness Present Illness HPI 87-year-old female with hx of dementia presented to ED from alf facility for evaluation of reduced appetite times one day. Has been weak for a few days now. Has low-grade fever. However patient states she feels okay. Denies chest pain or shortness of breath. Denies nausea or vomiting. No other aggravating relieving factors. Denies any other associated symptoms. Pt is admitted for work up of fever and sepsis. Allergies: Coded Allergies: PENICILLINS (Verified Allergy, Severe, Rash, 01/31/16) Swelling Redness Rash Medication History Scheduled Acetaminophen* (Tylenol Extra Strength*), 325 MG ORAL Q4HR, (Reported) Ascorbic Acid (Vitamin C), 500 MG ORAL DAILY, (Reported) Atorvastatin (Lipitor), 80 MG ORAL BEDTIME Benazepril Hcl* (Benazepril Hcl*), 10 MG ORAL DAILY, (Reported) Benazepril Hcl* (Benazepril Hcl*), 10 MG ORAL Q12HR Cephalexin* (Keflex*), 500 MG ORAL EVERY 6 HOURS Cephalexin* (Keflex*), 500 MG ORAL EVERY 6 HOURS Clopidogrel Bisulfate* (Plavix*), 75 MG ORAL DAILY Cranberry Extract (Cranberry), 200 MG PO DAILY, (Reported) Docusate Sodium (Dok), 100 MG ORAL TID Donepezil Hcl* (Donepezil Hcl*), 10 MG ORAL HS, (Reported) Donepezil Hcl* (Aricept*), 10 MG ORAL QHS Magnesium Hydroxide (Milk of Magnesia), 30 ML ORAL DAILY, (Reported) Magnesium Hydroxide* (Milk Of Magnesia*), 30 ML ORAL DAILY, (Reported) Metformin Hcl* (Metformin Hcl*), 500 MG ORAL TWICE A DAY, (Reported) Multivitamin With Minerals (Multivitamins With Minerals*), 1 TAB ORAL DAILY, ( Reported) Na Phos,M-B/Na Phos,Di-Ba* (Fleet Enema*), 133 ML RECTAL DAILY, (Reported) Nateglinide (Starlix), 120 MG ORAL TIAC Nateglinide (Starlix), 120 MG ORAL TIAC Oseltamivir Phosphate (Tamiflu), 75 MG ORAL Q12HR Pantoprazole Sodium (Protonix), 20 MG ORAL DAILY, (Reported) Pantoprazole* (Protonix*), 40 MG ORAL BID Tamsulosin HCl (Flomax), 0.4 MG ORAL BEDTIME Tolterodine Tartrate (Detrol La), 4 MG ORAL DAILY, (Reported) Trimethoprim/Sulfamethoxazole (Bactrim 400-80 mg Tablet), 1 EA ORAL Q12HR Scheduled PRN Acetaminophen (Acetaminophen), 650 MG ORAL Q6H PRN for Prn Headache/Temp > 101, (Reported) Clonidine HCl (Clonidine HCl), 0.1 MG ORAL Q6H PRN Miscellaneous Medications Bisacodyl (Bisacodyl), 10 MG RC, (Reported) Docusate Sodium (Dulcolax Stool Softener), 10 MG PO, (Reported) Guaifenesin (Robafen), 100 MG PO, (Reported) Guar Gum (Benefiber*), 1 PACKET ORAL, (Reported) Loperamide Hcl (Loperamide), 2 MG PO, (Reported) Mu-Vits-Min Th/Lycopene/Lutein (Centrum Silver Tablet), 1 EACH PO, (Reported) Multivitamin/Iron/Folic Acid (Centrum Adults Tablet), 1 EACH PO, (Reported) Na Phos,M-B/Na Phos,Di-Ba (Sm Enema Ready To Use), 270 ML RC, (Reported) Na Phos,M-B/Na Phos,Di-Ba (Fleet Enema), 118 ML RC, (Reported) Naproxen Sodium (Naproxen Sodium), 220 MG PO, (Reported) Vitamin A & D (Vitamin A & D Ointment), (Reported) Patient History Healthcare decision maker N Resuscitation status Do Not Resuscitate Advanced Directive on File Yes Past Medical/Surgical History Past Medical/Surgical History: (1) HTN (hypertension) (2) Cerebral vascular accident (3) Alzheimer's dementia (4) Diabetes type 2, uncontrolled Review of Systems All Other Systems: negative except mentioned in HPI Physical Exam General Appearance: WD/WN, no apparent distress Lines, tubes and drains: peripheral, PICC HEENT: normocephalic Neck: non-tender, supple, limited range of motion Respiratory/Chest: chest wall non-tender Last 24 Hour Vital Signs Date Time Temp Pulse Resp B/P (MAP) Pulse Ox O2 Delivery O2 Flow Rate FiO2 02/15/18 10:37 124/99 02/15/18 04:00 98.2 85 20 148/84 (105) 96 98.2 02/15/18 00:00 98.7 98 20 145/61 (89) 95 98.7 02/14/18 21:00 Room Air 02/14/18 20:31 154/76 02/14/18 20:00 98.2 95 20 154/76 (102) 96 98.2 02/14/18 16:00 97.1 99 20 149/78 (101) 97 97.1 85 Intake and Output 02/14/18 02/15/18 19:00 07:00 Intake Total 250 ml 605 ml Output Total 25 ml 600 ml Balance 225 ml 5 ml Intake IV Total 250 ml 605 ml Output Urine Total 600 ml Post Void Residual 25 ml Bladder Scan Volume Amount 11-30 ml # Voids 3 # Bowel Movements 2 2 Laboratory Tests Test 02/15/18 05:40 White Blood Count 9.1 K/UL (4.8-10.8) Red Blood Count 4.43 M/UL (4.20-5.40) Hemoglobin 13.6 G/DL (12.0-16.0) Hematocrit 40.4 % (37.0-47.0) Mean Corpuscular Volume 91 FL (80-99) Mean Corpuscular Hemoglobin 30.6 PG (27.0-31.0) Mean Corpuscular Hemoglobin Concent 33.5 G/DL (32.0-36.0) Red Cell Distribution Width 12.0 % (11.6-14.8) Platelet Count 234 K/UL (150-450) Mean Platelet Volume 5.7 FL (6.5-10.1) L Neutrophils (%) (Auto) 69.4 % (45.0-75.0) Lymphocytes (%) (Auto) 20.1 % (20.0-45.0) Monocytes (%) (Auto) 5.7 % (1.0-10.0) Eosinophils (%) (Auto) 4.5 % (0.0-3.0) H Basophils (%) (Auto) 0.3 % (0.0-2.0) Sodium Level 147 MMOL/L (136-145) H Potassium Level 3.7 MMOL/L (3.5-5.1) Chloride Level 113 MMOL/L (98-107) H Carbon Dioxide Level 22 MMOL/L (21-32) Anion Gap 12 mmol/L (5-15) Blood Urea Nitrogen 12 mg/dL (7-18) Creatinine 1.1 MG/DL (0.55-1.30) Estimat Glomerular Filtration Rate mL/min (>60) Glucose Level 183 MG/DL (74-106) H Calcium Level 8.3 MG/DL (8.5-10.1) L Phosphorus Level 2.6 MG/DL (2.5-4.9) Magnesium Level 1.8 MG/DL (1.8-2.4) Total Bilirubin 0.5 MG/DL (0.2-1.0) Aspartate Amino Transf (AST/SGOT) 18 U/L (15-37) Alanine Aminotransferase (ALT/SGPT) 21 U/L (12-78) Alkaline Phosphatase 93 U/L (46-116) Pro-B-Type Natriuretic Peptide 1088 pg/mL (0-125) H Total Protein 5.9 G/DL (6.4-8.2) L Albumin 2.0 G/DL (3.4-5.0) L Globulin 3.9 g/dL Albumin/Globulin Ratio 0.5 (1.0-2.7) L Height (Feet): 5 Height (Inches): 6.00 Weight (Pounds): 185 Medications Current Medications Medications (Trade) Dose Ordered Sig/Олег Route PRN Reason Start Time Stop Time Status Last Admin Dose Admin Acetaminophen (Tylenol) 650 mg Q6H PRN ORAL Headache/Temp > 101 02/13/18 13:45 03/15/18 13:44 Benazepril HCl (Lotensin) 10 mg Q12HR ORAL 02/13/18 21:00 03/15/18 20:59 02/15/18 10:37 Cefepime HCl 2 gm/ Dextrose 55 ml @ 110 mls/hr Q24H IVPB 02/14/18 05:00 02/21/18 04:59 02/15/18 04:59 Clonidine HCl (Catapres Tab) 0.1 mg Q6H PRN ORAL bp over 160 syst 02/13/18 13:50 03/15/18 13:49 02/14/18 05:52 Clopidogrel Bisulfate (Plavix) 75 mg DAILY ORAL 02/14/18 09:00 03/16/18 08:59 02/15/18 10:36 Dextrose (Dextrose 50%) 25 ml Q30M PRN IV Hypoglycemia 02/14/18 15:30 03/16/18 15:29 Dextrose (Dextrose 50%) 50 ml Q30M PRN IV Hypoglycemia 02/14/18 15:30 03/16/18 15:29 Docusate Sodium (Colace) 100 mg TID ORAL 02/13/18 18:00 03/15/18 17:59 02/15/18 10:36 Donepezil HCl (Aricept) 10 mg QHS ORAL 02/13/18 21:00 03/15/18 20:59 02/14/18 20:31 Heparin Sodium (Porcine) (Heparin 5000 units/ml) 5,000 units EVERY 12 HOURS SUBQ 02/13/18 21:00 03/15/18 20:59 02/15/18 10:38 Insulin Aspart (NovoLOG) BEFORE MEALS AND HS SUBQ 02/14/18 16:30 03/16/18 16:29 02/15/18 06:08 Metformin HCl (Glucophage) 500 mg TWICE A DAY ORAL 02/13/18 18:00 03/15/18 17:59 02/15/18 10:36 Nateglinide (Starlix) 120 mg TIAC ORAL 02/15/18 11:30 03/16/18 11:29 Pantoprazole (Protonix) 40 mg BID ORAL 02/13/18 18:00 03/15/18 17:59 02/15/18 10:37 Tamsulosin HCl (Flomax) 0.4 mg BEDTIME ORAL 02/15/18 21:00 03/17/18 20:59 Vancomycin HCl (Vanco rx to dose) 1 ea DAILY PRN MISC Per rx protocol 02/13/18 15:15 03/15/18 15:14 Vancomycin/Sodium Chloride 250 ml @ 166.667 mls/hr Q24H IVPB 02/14/18 18:00 02/19/18 17:59 02/14/18 17:47 Assessment/Plan Problem List: (1) Acute encephalopathy ICD Codes: G93.40 - Encephalopathy, unspecified SNOMED: 22798606, 404466537 (2) Sepsis ICD Codes: A41.9 - Sepsis, unspecified organism SNOMED: 87542671 (3) At high risk for aspiration ICD Codes: Z91.89 - Other specified personal risk factors, not elsewhere classified SNOMED: 407171434 (4) Alzheimer's dementia ICD Codes: G30.9 - Alzheimer's disease, unspecified SNOMED: 30983007 Qualifiers: Qualified Codes: G30.9 - Alzheimer's disease, unspecified; F02.80 - Dementia in other diseases classified elsewhere without behavioral disturbance (5) Cerebral vascular accident ICD Codes: I63.9 - Cerebral infarction, unspecified SNOMED: 572422073 (6) Diabetes type 2, uncontrolled ICD Codes: E11.65 - Type 2 diabetes mellitus with hyperglycemia SNOMED: 394039284 Assessment/Plan fernandez cultures cxr check urine and blood cultures broad spectrum antibiotics respiratory treatment aspiration precaution dvt prophylaxis Abbey Eason MD Feb 15, 2018 12:01
[2018-02-15 16:00] VITALS: BP 138/75
--- NOTE | 2018-02-15 16:47 | Infectious Diseases Prog Note ---
Assessment/Plan Problems: (1) Acute pyelonephritis Assessment & Plan: due to E coli, pansensitive , will switch cefepime empirically to ceftriaxon and treat for 7-10 days (2) Sepsis Assessment & Plan: with negative blood culture will stop cefepime and vancomycin empirically since no growth on blood culture and continue ceftriaxone empirically (3) Fever Assessment & Plan: due to the above , continue tylenol and wide spectrum antibiotics (4) Acute encephalopathy Assessment & Plan: due to the above , improving, continue antibiotics and hydration, avoid sedatives (5) At high risk for aspiration Assessment & Plan: keep NPO for now, with aspiration precaution, keep HOB > 30 degree all the time, swallow eval once fully awake Subjective ROS Limited/Unobtainable: Yes Allergies: Coded Allergies: PENICILLINS (Verified Allergy, Severe, Rash, 01/31/16) Swelling Redness Rash Subjective she is awake and alert , poorly responsive to verbal commands, afebrile, friend at the bedside Objective Vital Signs Last 24 Hour Vital Signs Date Time Temp Pulse Resp B/P (MAP) Pulse Ox O2 Delivery O2 Flow Rate FiO2 02/15/18 12:00 97.8 83 18 154/88 (110) 96 97.8 02/15/18 10:37 124/99 02/15/18 09:00 Room Air 02/15/18 08:00 98.8 90 20 151/79 (103) 97 98.8 02/15/18 04:00 98.2 85 20 148/84 (105) 96 98.2 02/15/18 00:00 98.7 98 20 145/61 (89) 95 98.7 02/14/18 21:00 Room Air 02/14/18 20:31 154/76 02/14/18 20:00 98.2 95 20 154/76 (102) 96 98.2 Height (Feet): 5 Height (Inches): 6.00 Weight (Pounds): 185 General Appearance: WD/WN, no acute distress HEENT: normocephalic, atraumatic, anicteric, mucous membranes moist, PERRL Respiratory/Chest: chest wall non-tender, lungs clear, normal breath sounds, no respiratory distress, no accessory muscle use Cardiovascular: normal peripheral pulses, normal rate, regular rhythm, no gallop/murmur, no JVD Abdomen: normal bowel sounds, soft, non tender, no organomegaly, non distended , no mass, no scars Genitourinary: normal external genitalia Extremities: no cyanosis, no clubbing Skin: no rash, no lesions, no ulcers Neurologic/Psychiatric: alert, oriented x 3, responsive Lymphatic: no neck adenopathy, no groin adenopathy Musculoskeletal: normal muscle bulk, no effusion Microbiology Date/Time Source Procedure Growth Status 02/13/18 11:50 Blood Blood Culture - Preliminary NO GROWTH AFTER 24 HOURS Resulted 02/13/18 11:35 Blood Blood Culture - Preliminary NO GROWTH AFTER 24 HOURS Resulted 02/13/18 12:20 Nasal Nares MRSA Culture - Final NO METHICILLIN RESISTANT STAPH AUREUS... Complete 02/13/18 11:35 Urine,Clean Catch Urine Culture - Final Escherichia Coli Complete 02/13/18 12:20 Rectum VRE Culture - Final Enterococcus Faecalis - Vre Complete 02/13/18 12:20 Rectum - Final NO CARBAPENEM-RESISTANT ENTEROBACTERI... Complete Laboratory Tests Test 02/15/18 05:40 White Blood Count 9.1 K/UL (4.8-10.8) Red Blood Count 4.43 M/UL (4.20-5.40) Hemoglobin 13.6 G/DL (12.0-16.0) Hematocrit 40.4 % (37.0-47.0) Mean Corpuscular Volume 91 FL (80-99) Mean Corpuscular Hemoglobin 30.6 PG (27.0-31.0) Mean Corpuscular Hemoglobin Concent 33.5 G/DL (32.0-36.0) Red Cell Distribution Width 12.0 % (11.6-14.8) Platelet Count 234 K/UL (150-450) Mean Platelet Volume 5.7 FL (6.5-10.1) L Neutrophils (%) (Auto) 69.4 % (45.0-75.0) Lymphocytes (%) (Auto) 20.1 % (20.0-45.0) Monocytes (%) (Auto) 5.7 % (1.0-10.0) Eosinophils (%) (Auto) 4.5 % (0.0-3.0) H Basophils (%) (Auto) 0.3 % (0.0-2.0) Sodium Level 147 MMOL/L (136-145) H Potassium Level 3.7 MMOL/L (3.5-5.1) Chloride Level 113 MMOL/L (98-107) H Carbon Dioxide Level 22 MMOL/L (21-32) Anion Gap 12 mmol/L (5-15) Blood Urea Nitrogen 12 mg/dL (7-18) Creatinine 1.1 MG/DL (0.55-1.30) Estimat Glomerular Filtration Rate mL/min (>60) Glucose Level 183 MG/DL (74-106) H Calcium Level 8.3 MG/DL (8.5-10.1) L Phosphorus Level 2.6 MG/DL (2.5-4.9) Magnesium Level 1.8 MG/DL (1.8-2.4) Total Bilirubin 0.5 MG/DL (0.2-1.0) Aspartate Amino Transf (AST/SGOT) 18 U/L (15-37) Alanine Aminotransferase (ALT/SGPT) 21 U/L (12-78) Alkaline Phosphatase 93 U/L (46-116) Pro-B-Type Natriuretic Peptide 1088 pg/mL (0-125) H Total Protein 5.9 G/DL (6.4-8.2) L Albumin 2.0 G/DL (3.4-5.0) L Globulin 3.9 g/dL Albumin/Globulin Ratio 0.5 (1.0-2.7) L Current Medications Medications (Trade) Dose Ordered Sig/Олег Route PRN Reason Start Time Stop Time Status Last Admin Dose Admin Acetaminophen (Tylenol) 650 mg Q6H PRN ORAL Headache/Temp > 101 02/13/18 13:45 03/15/18 13:44 Benazepril HCl (Lotensin) 10 mg Q12HR ORAL 02/13/18 21:00 03/15/18 20:59 02/15/18 10:37 Ceftriaxone Sodium 1 gm/ Dextrose 55 ml @ 110 mls/hr Q24H IVPB 02/15/18 18:00 02/22/18 17:59 Clonidine HCl (Catapres Tab) 0.1 mg Q6H PRN ORAL bp over 160 syst 02/13/18 13:50 03/15/18 13:49 02/14/18 05:52 Clopidogrel Bisulfate (Plavix) 75 mg DAILY ORAL 02/14/18 09:00 03/16/18 08:59 02/15/18 10:36 Dextrose (Dextrose 50%) 25 ml Q30M PRN IV Hypoglycemia 02/14/18 15:30 03/16/18 15:29 Dextrose (Dextrose 50%) 50 ml Q30M PRN IV Hypoglycemia 02/14/18 15:30 03/16/18 15:29 Docusate Sodium (Colace) 100 mg TID ORAL 02/13/18 18:00 03/15/18 17:59 02/15/18 10:36 Donepezil HCl (Aricept) 10 mg QHS ORAL 02/13/18 21:00 03/15/18 20:59 02/14/18 20:31 Heparin Sodium (Porcine) (Heparin 5000 units/ml) 5,000 units EVERY 12 HOURS SUBQ 02/13/18 21:00 03/15/18 20:59 02/15/18 10:38 Insulin Aspart (NovoLOG) BEFORE MEALS AND HS SUBQ 02/14/18 16:30 03/16/18 16:29 02/15/18 12:38 Metformin HCl (Glucophage) 500 mg TWICE A DAY ORAL 02/13/18 18:00 03/15/18 17:59 02/15/18 10:36 Nateglinide (Starlix) 120 mg TIAC ORAL 02/15/18 11:30 03/16/18 11:29 02/15/18 12:31 Pantoprazole (Protonix) 40 mg BID ORAL 02/13/18 18:00 03/15/18 17:59 02/15/18 10:37 Tamsulosin HCl (Flomax) 0.4 mg BEDTIME ORAL 02/15/18 21:00 03/17/18 20:59 Alicja Webster M.D. Feb 15, 2018 16:47
[2018-02-15] MEDS: cefTRIAXone 1 GM in D5W 55 ML IVPB SCH (18:53)
[2018-02-15 20:00] VITALS: BP 149/89
[2018-02-15] MEDS: Donepezil 10mg tab ORAL SCH (20:22)
[2018-02-15] MEDS: Tamsulosin 0.4mg cap ORAL SCH (20:23)
[2018-02-16] VITALS: BP 135/82
[2018-02-16 04:00] VITALS: BP 155/74
[2018-02-16] MEDS: NovoLOG Insulin Flexpen SUBQ SCH ×4 (06:09→21:31)
[2018-02-16 07:35] VITALS: BP 127/69
[2018-02-16] MEDS: metFORMIN 500mg tab ORAL SCH ×2 (09:04→17:41)
[2018-02-16] MEDS: Benazepril 10mg tab ORAL SCH ×2 (09:05→21:26)
[2018-02-16] MEDS: Docusate 100mg cap ORAL SCH ×3 (09:05→17:41)
[2018-02-16] MEDS: Heparin 5000 units/ml inj SUBQ SCH ×2 (09:07→21:30)
--- NOTE | 2018-02-16 09:46 | Diagnostic Imaging Report ---
INDICATION: Cough COMPARISON: Chest x-ray dated 02/13/18 FINDINGS: Single frontal view demonstrates a normal cardiomediastinal silhouette. Elevated left hemidiaphragm. Increased pulmonary markings may be suggestive of congestion. The lungs are otherwise clear. No pleural effusions. The visualized osseous structures are within normal limits. IMPRESSION: Elevated left hemidiaphragm with increased pulmonary markings suggestive of congestion.
[2018-02-16 11:15] VITALS: BP 106/68
--- NOTE | 2018-02-16 13:50 | General Progress Note ---
Assessment/Plan Problem List: (1) Acute pyelonephritis ICD Codes: N10 - Acute pyelonephritis SNOMED: 01120256 (2) Sepsis ICD Codes: A41.9 - Sepsis, unspecified organism SNOMED: 27939834 (3) At high risk for aspiration ICD Codes: Z91.89 - Other specified personal risk factors, not elsewhere classified SNOMED: 459591072 (4) Acute encephalopathy ICD Codes: G93.40 - Encephalopathy, unspecified SNOMED: 90574591, 939156631 (5) Alzheimer's dementia ICD Codes: G30.9 - Alzheimer's disease, unspecified SNOMED: 59543057 Qualifiers: Qualified Codes: G30.9 - Alzheimer's disease, unspecified; F02.80 - Dementia in other diseases classified elsewhere without behavioral disturbance (6) Hypertension ICD Codes: I10 - Essential (primary) hypertension SNOMED: 62151228 Qualifiers: Qualified Codes: I10 - Essential (primary) hypertension (7) Diabetes type 2, uncontrolled ICD Codes: E11.65 - Type 2 diabetes mellitus with hyperglycemia SNOMED: 881628694 Status: stable Assessment/Plan hydrate- st eval start diet antibiotics per ID now on ROcephin correct electrolytes bp and bs check per orders Subjective ROS Limited/Unobtainable: No Constitutional: Reports: other - stronger- apetite improved Allergies: Coded Allergies: PENICILLINS (Verified Allergy, Severe, Rash, 01/31/16) Swelling Redness Rash Objective Last 24 Hour Vital Signs Date Time Temp Pulse Resp B/P (MAP) Pulse Ox O2 Delivery O2 Flow Rate FiO2 02/16/18 11:15 97.7 94 20 106/68 (81) 99 97.7 02/16/18 09:05 127/69 02/16/18 09:00 Room Air 02/16/18 07:35 98.5 65 21 127/69 (88) 93 98.5 02/16/18 04:00 98.3 94 20 155/74 (101) 97 98.3 94 02/16/18 00:00 97.9 98 20 135/82 (99) 98 97.9 98 02/15/18 21:00 Room Air 02/15/18 20:23 149/89 02/15/18 20:00 98.0 100 20 149/89 (109) 97 98.0 100 02/15/18 16:00 98.4 88 21 138/75 (96) 95 98.4 Intake and Output 02/15/18 02/16/18 19:00 07:00 Intake Total 600 ml 55 ml Output Total 1000 ml 600 ml Balance -400 ml -545 ml Intake Oral 600 ml IV Total 55 ml Output Urine Total 1000 ml 600 ml # Bowel Movements 2 1 Height (Feet): 5 Height (Inches): 6.00 Weight (Pounds): 185 General Appearance: no apparent distress Cardiovascular: normal rate Respiratory/Chest: lungs clear Abdomen: soft Objective no change Delon Sanchez MD Feb 16, 2018 13:50
[2018-02-16 15:40] VITALS: BP 154/74
[2018-02-16] MEDS: cefTRIAXone 1 GM in D5W 55 ML IVPB SCH (17:41)
[2018-02-16 20:00] VITALS: BP 163/65
[2018-02-16] MEDS: Donepezil 10mg tab ORAL SCH (21:25)
[2018-02-16] MEDS: Tamsulosin 0.4mg cap ORAL SCH (21:26)
--- NOTE | 2018-02-16 22:45 | Infectious Diseases Prog Note ---
Assessment/Plan Problems: (1) Acute pyelonephritis Assessment & Plan: due to E coli, pansensitive , continue ceftriaxon to treat for 7-10 days (2) Sepsis Assessment & Plan: with negative blood culture , continue ceftriaxone empirically to cover pyelonephritis (3) Fever Assessment & Plan: due to the above , continue tylenol and wide spectrum antibiotics (4) Acute encephalopathy Assessment & Plan: due to the above , improving, continue antibiotics and hydration, avoid sedatives (5) At high risk for aspiration Assessment & Plan: keep NPO for now, with aspiration precaution, keep HOB > 30 degree all the time, swallow eval once fully awake Subjective Constitutional: Reports: no symptoms HEENT: Reports: no symptoms Respiratory: Reports: no symptoms Breasts: Reports: no symptoms Cardiovascular: Reports: no symptoms Gastrointestinal/Abdominal: Reports: no symptoms Genitourinary: Reports: no symptoms Neurologic: Reports: no symptoms Psychiatric: Reports: no symptoms Skin: Reports: no symptoms Endocrine: Reports: no symptoms Hematologic: Reports: no symptoms Musculoskeletal: Reports: no symptoms Allergies: Coded Allergies: PENICILLINS (Verified Allergy, Severe, Rash, 01/31/16) Swelling Redness Rash Subjective she is awake and alert , poorly responsive to verbal commands, afebrile, friend at the bedside Objective Vital Signs Last 24 Hour Vital Signs Date Time Temp Pulse Resp B/P (MAP) Pulse Ox O2 Delivery O2 Flow Rate FiO2 02/16/18 21:26 163/65 02/16/18 21:00 Room Air 02/16/18 20:00 98.1 100 20 163/65 (97) 97 98.1 02/16/18 15:40 97.6 95 22 154/74 (100) 96 97.6 02/16/18 11:15 97.7 94 20 106/68 (81) 99 97.7 02/16/18 09:05 127/69 02/16/18 09:00 Room Air 02/16/18 07:35 98.5 65 21 127/69 (88) 93 98.5 02/16/18 04:00 98.3 94 20 155/74 (101) 97 98.3 94 02/16/18 00:00 97.9 98 20 135/82 (99) 98 97.9 98 Height (Feet): 5 Height (Inches): 6.00 Weight (Pounds): 185 General Appearance: WD/WN, no acute distress HEENT: normocephalic, atraumatic, anicteric, mucous membranes moist, PERRL Respiratory/Chest: chest wall non-tender, normal breath sounds, no respiratory distress, no accessory muscle use, decreased breath sounds Cardiovascular: normal peripheral pulses, normal rate, regular rhythm, no gallop/murmur, no JVD Abdomen: normal bowel sounds, soft, non tender, no organomegaly, non distended , no mass, no scars Genitourinary: normal external genitalia Extremities: no cyanosis, no clubbing Skin: no rash, no lesions, no ulcers Neurologic/Psychiatric: alert, oriented x 3, responsive Lymphatic: no neck adenopathy, no groin adenopathy Musculoskeletal: normal muscle bulk, no effusion Current Medications Medications (Trade) Dose Ordered Sig/Олег Route PRN Reason Start Time Stop Time Status Last Admin Dose Admin Acetaminophen (Tylenol) 650 mg Q6H PRN ORAL Headache/Temp > 101 02/13/18 13:45 03/15/18 13:44 Benazepril HCl (Lotensin) 10 mg Q12HR ORAL 02/13/18 21:00 03/15/18 20:59 02/16/18 21:26 Ceftriaxone Sodium 1 gm/ Dextrose 55 ml @ 110 mls/hr Q24H IVPB 02/15/18 18:00 02/22/18 17:59 02/16/18 17:41 Clonidine HCl (Catapres Tab) 0.1 mg Q6H PRN ORAL bp over 160 syst 02/13/18 13:50 03/15/18 13:49 02/14/18 05:52 Clopidogrel Bisulfate (Plavix) 75 mg DAILY ORAL 02/14/18 09:00 03/16/18 08:59 02/16/18 09:05 Dextrose (Dextrose 50%) 25 ml Q30M PRN IV Hypoglycemia 02/14/18 15:30 03/16/18 15:29 Dextrose (Dextrose 50%) 50 ml Q30M PRN IV Hypoglycemia 02/14/18 15:30 03/16/18 15:29 Docusate Sodium (Colace) 100 mg TID ORAL 02/13/18 18:00 03/15/18 17:59 02/16/18 17:41 Donepezil HCl (Aricept) 10 mg QHS ORAL 02/13/18 21:00 03/15/18 20:59 02/16/18 21:25 Heparin Sodium (Porcine) (Heparin 5000 units/ml) 5,000 units EVERY 12 HOURS SUBQ 02/13/18 21:00 03/15/18 20:59 02/16/18 21:30 Insulin Aspart (NovoLOG) BEFORE MEALS AND HS SUBQ 02/14/18 16:30 03/16/18 16:29 02/16/18 21:31 Metformin HCl (Glucophage) 500 mg TWICE A DAY ORAL 02/13/18 18:00 03/15/18 17:59 02/16/18 17:41 Nateglinide (Starlix) 120 mg TIAC ORAL 02/15/18 11:30 03/16/18 11:29 02/16/18 17:43 Pantoprazole (Protonix) 40 mg BID ORAL 02/13/18 18:00 03/15/18 17:59 02/16/18 17:41 Tamsulosin HCl (Flomax) 0.4 mg BEDTIME ORAL 02/15/18 21:00 03/17/18 20:59 02/16/18 21:26 Alicja Webster M.D. Feb 16, 2018 22:45
[2018-02-17] VITALS: BP 141/66
[2018-02-17 04:00] VITALS: BP 146/67
[2018-02-17] MEDS: NovoLOG Insulin Flexpen SUBQ SCH ×2 (06:05→12:36)
[2018-02-17 06:41] LABS: BASOPHILS % (AUTO) 0.7 % (0.0-2.0); EOSINOPHILS % (AUTO) 3.6 % (0.0-3.0); HEMATOCRIT 42.2 % (37.0-47.0); LYMPHOCYTES % (AUTO) 28.1 % (20.0-45.0); MEAN CORPUSCULAR VOLUME 91 FL (80-99); MONOCYTES % (AUTO) 7.2 % (1.0-10.0); NEUTROPHILS % (AUTO) 60.3 % (45.0-75.0); PLATELET COUNT 314 K/UL (150-450); RED BLOOD COUNT 4.64 M/UL (4.20-5.40); RED CELL DISTRIBUTION WIDTH 11.9 % (11.6-14.8); WHITE BLOOD COUNT 7.8 K/UL (4.8-10.8)
[2018-02-17 06:59] LABS: ALANINE AMINOTRANSFERASE 22 U/L (12-78); ALBUMIN 2.2 G/DL (3.4-5.0); ALBUMIN/GLOBULIN RATIO 0.4 (1.0-2.7); ALKALINE PHOSPHATASE 100 U/L (46-116); ANION GAP 14 mmol/L (5-15); ASPARTATE AMINO TRANSFERASE 29 U/L (15-37); BILIRUBIN,TOTAL 0.3 MG/DL (0.2-1.0); BLOOD UREA NITROGEN 10 mg/dL (7-18); CALCIUM 8.9 MG/DL (8.5-10.1); CARBON DIOXIDE 23 MMOL/L (21-32); CHLORIDE 110 MMOL/L (98-107); CREATININE 1.2 MG/DL (0.55-1.30); POTASSIUM 3.4 MMOL/L (3.5-5.1); SODIUM 147 MMOL/L (136-145)
[2018-02-17 08:00] VITALS: BP 145/54
[2018-02-17] MEDS: Docusate 100mg cap ORAL SCH ×2 (08:53→12:34)
[2018-02-17] MEDS: Benazepril 10mg tab ORAL SCH (08:53)
[2018-02-17] MEDS: metFORMIN 500mg tab ORAL SCH (08:54)
[2018-02-17] MEDS: Heparin 5000 units/ml inj SUBQ SCH (09:04)
[2018-02-17 12:00] VITALS: BP 146/84
--- NOTE | 2018-02-17 12:07 | General Progress Note ---
Assessment/Plan Problem List: (1) Acute pyelonephritis ICD Codes: N10 - Acute pyelonephritis SNOMED: 94683253 (2) Sepsis ICD Codes: A41.9 - Sepsis, unspecified organism SNOMED: 02701209 (3) At high risk for aspiration ICD Codes: Z91.89 - Other specified personal risk factors, not elsewhere classified SNOMED: 963165513 (4) Acute encephalopathy ICD Codes: G93.40 - Encephalopathy, unspecified SNOMED: 28821690, 528152849 (5) Alzheimer's dementia ICD Codes: G30.9 - Alzheimer's disease, unspecified SNOMED: 27822388 Qualifiers: Qualified Codes: G30.9 - Alzheimer's disease, unspecified; F02.80 - Dementia in other diseases classified elsewhere without behavioral disturbance (6) Hypertension ICD Codes: I10 - Essential (primary) hypertension SNOMED: 50783397 Qualifiers: Qualified Codes: I10 - Essential (primary) hypertension (7) Diabetes type 2, uncontrolled ICD Codes: E11.65 - Type 2 diabetes mellitus with hyperglycemia SNOMED: 761803815 Status: stable Assessment/Plan DC on PO Cephalexin hydrate- st eval start diet now on ROcephin correct electrolytes bp and bs check per orders Subjective ROS Limited/Unobtainable: No Allergies: Coded Allergies: PENICILLINS (Verified Allergy, Severe, Rash, 01/31/16) Swelling Redness Rash Objective Last 24 Hour Vital Signs Date Time Temp Pulse Resp B/P (MAP) Pulse Ox O2 Delivery O2 Flow Rate FiO2 02/17/18 08:53 145/54 02/17/18 08:00 98.1 63 20 145/54 (84) 99 98.1 02/17/18 04:00 98.5 108 19 146/67 (93) 97 98.5 02/17/18 00:00 99.0 97 20 141/66 (91) 98 99.0 02/16/18 21:26 163/65 02/16/18 21:00 Room Air 02/16/18 20:00 98.1 100 20 163/65 (97) 97 98.1 02/16/18 15:40 97.6 95 22 154/74 (100) 96 97.6 Intake and Output 02/16/18 02/17/18 19:00 07:00 Intake Total 295 ml Output Total 1000 ml 200 ml Balance -705 ml -200 ml Intake Oral 240 ml IV Total 55 ml Output Urine Total 1000 ml 200 ml # Bowel Movements 1 2 Current Medications Medications (Trade) Dose Ordered Sig/Олег Route PRN Reason Start Time Stop Time Status Last Admin Dose Admin Acetaminophen (Tylenol) 650 mg Q6H PRN ORAL Headache/Temp > 101 02/13/18 13:45 03/15/18 13:44 Benazepril HCl (Lotensin) 10 mg Q12HR ORAL 02/13/18 21:00 03/15/18 20:59 02/17/18 08:53 Ceftriaxone Sodium 1 gm/ Dextrose 55 ml @ 110 mls/hr Q24H IVPB 02/15/18 18:00 02/22/18 17:59 02/16/18 17:41 Clonidine HCl (Catapres Tab) 0.1 mg Q6H PRN ORAL bp over 160 syst 02/13/18 13:50 03/15/18 13:49 02/14/18 05:52 Clopidogrel Bisulfate (Plavix) 75 mg DAILY ORAL 02/14/18 09:00 03/16/18 08:59 02/17/18 08:54 Dextrose (Dextrose 50%) 25 ml Q30M PRN IV Hypoglycemia 02/14/18 15:30 03/16/18 15:29 Dextrose (Dextrose 50%) 50 ml Q30M PRN IV Hypoglycemia 02/14/18 15:30 03/16/18 15:29 Docusate Sodium (Colace) 100 mg TID ORAL 02/13/18 18:00 03/15/18 17:59 02/17/18 08:53 Donepezil HCl (Aricept) 10 mg QHS ORAL 02/13/18 21:00 03/15/18 20:59 02/16/18 21:25 Heparin Sodium (Porcine) (Heparin 5000 units/ml) 5,000 units EVERY 12 HOURS SUBQ 02/13/18 21:00 03/15/18 20:59 02/17/18 09:04 Insulin Aspart (NovoLOG) BEFORE MEALS AND HS SUBQ 02/14/18 16:30 03/16/18 16:29 02/17/18 06:05 Metformin HCl (Glucophage) 500 mg TWICE A DAY ORAL 02/13/18 18:00 03/15/18 17:59 02/17/18 08:54 Nateglinide (Starlix) 120 mg TIAC ORAL 02/15/18 11:30 03/16/18 11:29 02/17/18 06:04 Pantoprazole (Protonix) 40 mg BID ORAL 02/13/18 18:00 03/15/18 17:59 02/17/18 08:53 Tamsulosin HCl (Flomax) 0.4 mg BEDTIME ORAL 02/15/18 21:00 03/17/18 20:59 02/16/18 21:26 Laboratory Tests 02/17/18 05:30: White Blood Count 7.8, Red Blood Count 4.64, Hemoglobin 14.0, Hematocrit 42.2, Mean Corpuscular Volume 91, Mean Corpuscular Hemoglobin 30.2, Mean Corpuscular Hemoglobin Concent 33.2, Red Cell Distribution Width 11.9, Platelet Count 314, Mean Platelet Volume 6.1L, Neutrophils (%) (Auto) 60.3, Lymphocytes (%) (Auto) 28.1, Monocytes (%) (Auto) 7.2, Eosinophils (%) (Auto) 3.6H, Basophils (%) (Auto ) 0.7, Sodium Level 147H, Potassium Level 3.4L, Chloride Level 110H, Carbon Dioxide Level 23, Anion Gap 14, Blood Urea Nitrogen 10, Creatinine 1.2, Estimat Glomerular Filtration Rate , Glucose Level 144H, Uric Acid 5.1, Calcium Level 8.9, Phosphorus Level 3.0, Magnesium Level 1.9, Total Bilirubin 0.3, Aspartate Amino Transf (AST/SGOT) 29, Alanine Aminotransferase (ALT/SGPT) 22, Alkaline Phosphatase 100, Total Protein 7.1, Albumin 2.2L, Globulin 4.9, Albumin/ Globulin Ratio 0.4L Height (Feet): 5 Height (Inches): 6.00 Weight (Pounds): 185 General Appearance: no apparent distress Cardiovascular: normal rate Respiratory/Chest: decreased breath sounds Abdomen: soft Objective no change Delon Sanchez MD Feb 17, 2018 12:07
[2018-02-17] MEDS ORDERED: DOK100 M1 ORAL (12:13)
[2018-02-17] MEDS ORDERED: FLOMAX0.4 MG ORAL (12:13)
[2018-02-17] MEDS ORDERED: STARLIX120 MG ORAL (12:13)
[2018-02-17] MEDS ORDERED: PROTONIX40 MG ORAL (12:13)
--- NOTE | 2018-02-17 12:14 | Discharge Instructions ---
Discharge Instructions Discharge Instructions Follow up with: PMD at [facility] Diet: cardiac 2 GM Na, low fat Special Instructions aspiration percautions routin skin care For Congestive Heart Failure Reminder Report to your physician any weight gain of 5 pounds or more in one week. Delon Sanchez MD Feb 17, 2018 12:14
[2018-02-17] MEDS ORDERED: Cephalexin 500mg cap ORAL SCH (13:00)
--- NOTE | 2018-02-17 13:39 | Pulmonology Progress Note ---
Assessment/Plan Problems: (1) Acute encephalopathy (2) Sepsis (3) At high risk for aspiration (4) Alzheimer's dementia (5) Cerebral vascular accident (6) Diabetes type 2, uncontrolled Assessment/Plan doing better more awake check urine and blood cultures broad spectrum antibiotics respiratory treatment aspiration precaution dvt prophylaxis Subjective ROS Limited/Unobtainable: No Constitutional: Reports: no symptoms Allergies: Coded Allergies: PENICILLINS (Verified Allergy, Severe, Rash, 01/31/16) Swelling Redness Rash Objective Last 24 Hour Vital Signs Date Time Temp Pulse Resp B/P (MAP) Pulse Ox O2 Delivery O2 Flow Rate FiO2 02/17/18 12:00 98.6 105 19 146/84 (104) 97 98.6 02/17/18 09:00 Room Air 02/17/18 08:53 145/54 02/17/18 08:00 98.1 63 20 145/54 (84) 99 98.1 02/17/18 04:00 98.5 108 19 146/67 (93) 97 98.5 02/17/18 00:00 99.0 97 20 141/66 (91) 98 99.0 02/16/18 21:26 163/65 02/16/18 21:00 Room Air 02/16/18 20:00 98.1 100 20 163/65 (97) 97 98.1 02/16/18 15:40 97.6 95 22 154/74 (100) 96 97.6 Intake and Output 02/16/18 02/17/18 19:00 07:00 Intake Total 295 ml Output Total 1000 ml 200 ml Balance -705 ml -200 ml Intake Oral 240 ml IV Total 55 ml Output Urine Total 1000 ml 200 ml # Bowel Movements 1 2 General Appearance: WD/WN HEENT: normocephalic, atraumatic Respiratory/Chest: chest wall non-tender, lungs clear Breasts: no masses Cardiovascular: normal peripheral pulses Abdomen: normal bowel sounds, no organomegaly Genitourinary: normal external genitalia Extremities: no clubbing Skin: no rash Laboratory Tests 02/17/18 05:30: White Blood Count 7.8, Red Blood Count 4.64, Hemoglobin 14.0, Hematocrit 42.2, Mean Corpuscular Volume 91, Mean Corpuscular Hemoglobin 30.2, Mean Corpuscular Hemoglobin Concent 33.2, Red Cell Distribution Width 11.9, Platelet Count 314, Mean Platelet Volume 6.1L, Neutrophils (%) (Auto) 60.3, Lymphocytes (%) (Auto) 28.1, Monocytes (%) (Auto) 7.2, Eosinophils (%) (Auto) 3.6H, Basophils (%) (Auto ) 0.7, Sodium Level 147H, Potassium Level 3.4L, Chloride Level 110H, Carbon Dioxide Level 23, Anion Gap 14, Blood Urea Nitrogen 10, Creatinine 1.2, Estimat Glomerular Filtration Rate , Glucose Level 144H, Uric Acid 5.1, Calcium Level 8.9, Phosphorus Level 3.0, Magnesium Level 1.9, Total Bilirubin 0.3, Aspartate Amino Transf (AST/SGOT) 29, Alanine Aminotransferase (ALT/SGPT) 22, Alkaline Phosphatase 100, Total Protein 7.1, Albumin 2.2L, Globulin 4.9, Albumin/ Globulin Ratio 0.4L Current Medications Medications (Trade) Dose Ordered Sig/Олег Route PRN Reason Start Time Stop Time Status Last Admin Dose Admin Acetaminophen (Tylenol) 650 mg Q6H PRN ORAL Headache/Temp > 101 02/13/18 13:45 03/15/18 13:44 Benazepril HCl (Lotensin) 10 mg Q12HR ORAL 02/13/18 21:00 03/15/18 20:59 02/17/18 08:53 Ceftriaxone Sodium 1 gm/ Dextrose 55 ml @ 110 mls/hr Q24H IVPB 02/15/18 18:00 02/22/18 17:59 02/16/18 17:41 Cephalexin (Keflex) 500 mg Q12H ORAL 02/17/18 13:00 02/24/18 12:59 Clonidine HCl (Catapres Tab) 0.1 mg Q6H PRN ORAL bp over 160 syst 02/13/18 13:50 03/15/18 13:49 02/14/18 05:52 Clopidogrel Bisulfate (Plavix) 75 mg DAILY ORAL 02/14/18 09:00 03/16/18 08:59 02/17/18 08:54 Dextrose (Dextrose 50%) 25 ml Q30M PRN IV Hypoglycemia 02/14/18 15:30 03/16/18 15:29 Dextrose (Dextrose 50%) 50 ml Q30M PRN IV Hypoglycemia 02/14/18 15:30 03/16/18 15:29 Docusate Sodium (Colace) 100 mg TID ORAL 02/13/18 18:00 03/15/18 17:59 02/17/18 12:34 Donepezil HCl (Aricept) 10 mg QHS ORAL 02/13/18 21:00 03/15/18 20:59 02/16/18 21:25 Heparin Sodium (Porcine) (Heparin 5000 units/ml) 5,000 units EVERY 12 HOURS SUBQ 02/13/18 21:00 03/15/18 20:59 02/17/18 09:04 Insulin Aspart (NovoLOG) BEFORE MEALS AND HS SUBQ 02/14/18 16:30 03/16/18 16:29 02/17/18 12:36 Metformin HCl (Glucophage) 500 mg TWICE A DAY ORAL 02/13/18 18:00 03/15/18 17:59 02/17/18 08:54 Nateglinide (Starlix) 120 mg TIAC ORAL 02/15/18 11:30 03/16/18 11:29 02/17/18 12:34 Pantoprazole (Protonix) 40 mg BID ORAL 02/13/18 18:00 03/15/18 17:59 02/17/18 08:53 Tamsulosin HCl (Flomax) 0.4 mg BEDTIME ORAL 02/15/18 21:00 03/17/18 20:59 02/16/18 21:26 Abbey Eason MD Feb 17, 2018 13:39
--- NOTE | 2018-02-17 13:57 | Infectious Diseases Prog Note ---
Assessment/Plan Problems: (1) Acute pyelonephritis Assessment & Plan: due to E coli, pansensitive , continue ceftriaxon to treat for 7-10 days, may switch to oral keflex to finish her course (2) Sepsis Assessment & Plan: with negative blood culture , continue ceftriaxone empirically to cover pyelonephritis (3) Acute encephalopathy Assessment & Plan: due to the above , improving, continue antibiotics and hydration, avoid sedatives (4) At high risk for aspiration Assessment & Plan: keep NPO for now, with aspiration precaution, keep HOB > 30 degree all the time, swallow eval once fully awake Subjective Constitutional: Reports: fatigue HEENT: Reports: no symptoms Respiratory: Reports: no symptoms Breasts: Reports: no symptoms Cardiovascular: Reports: no symptoms Gastrointestinal/Abdominal: Reports: no symptoms Genitourinary: Reports: no symptoms Neurologic: Reports: weakness Psychiatric: Reports: no symptoms Skin: Reports: no symptoms Endocrine: Reports: no symptoms Hematologic: Reports: no symptoms Musculoskeletal: Reports: no symptoms Allergies: Coded Allergies: PENICILLINS (Verified Allergy, Severe, Rash, 01/31/16) Swelling Redness Rash Subjective she is awake and alert , poorly responsive to verbal commands, afebrile, friend at the bedside Objective Vital Signs Last 24 Hour Vital Signs Date Time Temp Pulse Resp B/P (MAP) Pulse Ox O2 Delivery O2 Flow Rate FiO2 02/17/18 12:00 98.6 105 19 146/84 (104) 97 98.6 02/17/18 09:00 Room Air 02/17/18 08:53 145/54 02/17/18 08:00 98.1 63 20 145/54 (84) 99 98.1 02/17/18 04:00 98.5 108 19 146/67 (93) 97 98.5 02/17/18 00:00 99.0 97 20 141/66 (91) 98 99.0 02/16/18 21:26 163/65 02/16/18 21:00 Room Air 02/16/18 20:00 98.1 100 20 163/65 (97) 97 98.1 02/16/18 15:40 97.6 95 22 154/74 (100) 96 97.6 Height (Feet): 5 Height (Inches): 6.00 Weight (Pounds): 185 General Appearance: WD/WN, no acute distress HEENT: normocephalic, atraumatic, anicteric, mucous membranes moist, PERRL, EOMI, pharynx normal, supple, no JVD Respiratory/Chest: normal breath sounds, no respiratory distress, no accessory muscle use Cardiovascular: normal peripheral pulses, normal rate, regular rhythm, no gallop/murmur, no JVD Abdomen: normal bowel sounds, soft, non tender, no organomegaly, non distended , no mass, no scars Genitourinary: normal external genitalia Extremities: no cyanosis, no clubbing Skin: no rash, no lesions, no ulcers Neurologic/Psychiatric: alert, responsive Lymphatic: no neck adenopathy, no groin adenopathy Musculoskeletal: normal muscle bulk, no effusion Laboratory Tests Test 02/17/18 05:30 White Blood Count 7.8 K/UL (4.8-10.8) Red Blood Count 4.64 M/UL (4.20-5.40) Hemoglobin 14.0 G/DL (12.0-16.0) Hematocrit 42.2 % (37.0-47.0) Mean Corpuscular Volume 91 FL (80-99) Mean Corpuscular Hemoglobin 30.2 PG (27.0-31.0) Mean Corpuscular Hemoglobin Concent 33.2 G/DL (32.0-36.0) Red Cell Distribution Width 11.9 % (11.6-14.8) Platelet Count 314 K/UL (150-450) Mean Platelet Volume 6.1 FL (6.5-10.1) L Neutrophils (%) (Auto) 60.3 % (45.0-75.0) Lymphocytes (%) (Auto) 28.1 % (20.0-45.0) Monocytes (%) (Auto) 7.2 % (1.0-10.0) Eosinophils (%) (Auto) 3.6 % (0.0-3.0) H Basophils (%) (Auto) 0.7 % (0.0-2.0) Sodium Level 147 MMOL/L (136-145) H Potassium Level 3.4 MMOL/L (3.5-5.1) L Chloride Level 110 MMOL/L (98-107) H Carbon Dioxide Level 23 MMOL/L (21-32) Anion Gap 14 mmol/L (5-15) Blood Urea Nitrogen 10 mg/dL (7-18) Creatinine 1.2 MG/DL (0.55-1.30) Estimat Glomerular Filtration Rate mL/min (>60) Glucose Level 144 MG/DL (74-106) H Uric Acid 5.1 MG/DL (2.6-7.2) Calcium Level 8.9 MG/DL (8.5-10.1) Phosphorus Level 3.0 MG/DL (2.5-4.9) Magnesium Level 1.9 MG/DL (1.8-2.4) Total Bilirubin 0.3 MG/DL (0.2-1.0) Aspartate Amino Transf (AST/SGOT) 29 U/L (15-37) Alanine Aminotransferase (ALT/SGPT) 22 U/L (12-78) Alkaline Phosphatase 100 U/L (46-116) Total Protein 7.1 G/DL (6.4-8.2) Albumin 2.2 G/DL (3.4-5.0) L Globulin 4.9 g/dL Albumin/Globulin Ratio 0.4 (1.0-2.7) L Current Medications Medications (Trade) Dose Ordered Sig/Олег Route PRN Reason Start Time Stop Time Status Last Admin Dose Admin Acetaminophen (Tylenol) 650 mg Q6H PRN ORAL Headache/Temp > 101 02/13/18 13:45 03/15/18 13:44 Benazepril HCl (Lotensin) 10 mg Q12HR ORAL 02/13/18 21:00 03/15/18 20:59 02/17/18 08:53 Ceftriaxone Sodium 1 gm/ Dextrose 55 ml @ 110 mls/hr Q24H IVPB 02/15/18 18:00 02/22/18 17:59 02/16/18 17:41 Cephalexin (Keflex) 500 mg Q12H ORAL 02/17/18 13:00 02/24/18 12:59 02/17/18 13:43 Clonidine HCl (Catapres Tab) 0.1 mg Q6H PRN ORAL bp over 160 syst 02/13/18 13:50 03/15/18 13:49 02/14/18 05:52 Clopidogrel Bisulfate (Plavix) 75 mg DAILY ORAL 02/14/18 09:00 03/16/18 08:59 02/17/18 08:54 Dextrose (Dextrose 50%) 25 ml Q30M PRN IV Hypoglycemia 02/14/18 15:30 03/16/18 15:29 Dextrose (Dextrose 50%) 50 ml Q30M PRN IV Hypoglycemia 02/14/18 15:30 03/16/18 15:29 Docusate Sodium (Colace) 100 mg TID ORAL 02/13/18 18:00 03/15/18 17:59 02/17/18 12:34 Donepezil HCl (Aricept) 10 mg QHS ORAL 02/13/18 21:00 03/15/18 20:59 02/16/18 21:25 Heparin Sodium (Porcine) (Heparin 5000 units/ml) 5,000 units EVERY 12 HOURS SUBQ 02/13/18 21:00 03/15/18 20:59 02/17/18 09:04 Insulin Aspart (NovoLOG) BEFORE MEALS AND HS SUBQ 02/14/18 16:30 03/16/18 16:29 02/17/18 12:36 Metformin HCl (Glucophage) 500 mg TWICE A DAY ORAL 02/13/18 18:00 03/15/18 17:59 02/17/18 08:54 Nateglinide (Starlix) 120 mg TIAC ORAL 02/15/18 11:30 03/16/18 11:29 02/17/18 12:34 Pantoprazole (Protonix) 40 mg BID ORAL 02/13/18 18:00 03/15/18 17:59 02/17/18 08:53 Tamsulosin HCl (Flomax) 0.4 mg BEDTIME ORAL 02/15/18 21:00 03/17/18 20:59 02/16/18 21:26 Alicja Webster M.D. Feb 17, 2018 13:57
--- NOTE | 2018-02-20 11:22 | Discharge Summary ---
Discharge Summary Discharge Summary _ DATE OF ADMISSION: 02/13/2018 DATE OF DISCHARGE: 2017 REASON FOR ADMISSION: 87 years old female with past medical history of hypertension, diabetes, dementia, urinary incontinence, history of aspiration pneumonia and kidney infection, resident of care home facility, was sent for evaluation due to low-grade fever, nausea , and hypoxia. The patient did not eat breakfast as well that morning. Patient was started on oxygen and was brought for evaluation . In ED patient was found to be tachycardic. Laboratory workup revealed leukocytosis, stable hemoglobin and hematocrit. Chest x-ray revealed no acute cardiopulmonary pathology. Urinalysis was grossly positive for UTI Glucose 294 Sodium 148 CRP 11.7 Patient admitted with diagnoses of sepsis ,pyelonephritis, encephalopathy( probably due to underlying infection), aspiration risk, dementia, diabetes mellitus ,functional quadriplegia. CONSULTANTS: pulmonary Dr. Eason ID specialist Dr. Webster [facility]RSE: Patient admitted to medical surgical floor and started on IV hydration and empiric IV antibiotics. ID specialist closely followed. Urine culture revealed Escherichia coli. Blood culture were negative. Antibiotic regimen optimized based on culture . Patient will need to complete the course with oral antibiotics at the facility as per ID recommendation. Blood pressure was managed with DULCE inhibitor, remained stable. Antiplatelet therapy with Plavix continued. Lipid panel revealed borderline elevated LDL. Patient was educated on low-fat low-cholesterol diabetic diet. Repeat lipid panel in 3 months and consider adding statin. DVT and GI prophylaxis provided. Bedside swallow evaluation revealed moderate oropharyngeal dysphagia. Diet was downgraded as per speech therapist recommendation . Strict aspiration /reflux precautions and total assistance with meals maintained. Blood sugar was managed with oral anti- glycemic : Starlix and metformin and sliding scale of insulin as needed. Hemoglobin A1c 9.1, not at goal. Patient will need further optimization of anti-glycemic regimen as outpatient. Renal parameters and electrolytes were closely monitored. Electrolytes corrected as needed. Nephrotoxins were avoided. Supportive care provided. Bowel regimen instituted. Pain management was addressed as needed. Leukocytosis resolved, no further fevers . Patient clinically improved and was stable for discharge to care home facility for continuation of care. FINAL DIAGNOSES: Sepsis Acute pyelonephritis with Escherichia coli Acute encephalopathy Aspiration risk Alzheimer dementia Hypertension Diabetes mellitus type 2, uncontrolled History of CVA Functional quadriplegia DISCHARGE MEDICATIONS: See Medication Reconciliation list DISCHARGE INSTRUCTIONS: Patient was discharged to the care home facility. Follow up with medical doctor at the facility. I have been assigned to dictate discharge summary for this account. I was not involved in the patient's management. Amber Bennett NP Feb 20, 2018 11:22
== END 2018-02-17 17:18 | DRG 872 ==
LOC: EDUNIT# 11:24 → EDBD 11:24 → EMR 12:14 → EDBEDREQ 12:48 → 4E 13:03 → EDBEDREQ 13:09
DX: A41.9 Sepsis, unspecified organism (principal); G93.49 Other encephalopathy; D61.818 Other pancytopenia; N10 Acute pyelonephritis; R09.02 Hypoxemia; B96.20 Unspecified Escherichia coli [E. coli] as the cause of diseases classified elsewhere; E11.9 Type 2 diabetes mellitus without complications; I10 Essential (primary) hypertension; I25.10 Atherosclerotic heart disease of native coronary artery without angina pectoris; K21.9 Gastro-esophageal reflux disease without esophagitis; G30.9 Alzheimer's disease, unspecified; F02.80 Dementia in other diseases classified elsewhere, unspecified severity, without behavioral disturbance, psychotic disturbance, mood disturbance, and anxiety; Z88.0 Allergy status to penicillin; Z86.73 Personal history of transient ischemic attack (TIA), and cerebral infarction without residual deficits; E11.65 Type 2 diabetes mellitus with hyperglycemia; R13.12 Dysphagia, oropharyngeal phase
CPT/HCPCS: 36415; 71045; 80053; 80061; 81003; 82550; 82553; 82962; 82977; 83036; 83605; 83735; 83880; 84100; 84443; 84484; 84550; 85025; 86140; 87040; 87081; 87086; 87181; 93005; 94640; 94664; 96360; 99285; J1815; J8499